=== PATIENT | female | born 1955 | race Caucasian/White ===

== ENCOUNTER 2022-02-14 09:35 | Emergency (ER) | payer MEDICARE, OTHER, SELFPAY ==
[2022-02-14 09:45] VITALS: BP 157/83; PULSE 80; O2SAT 98
[2022-02-14 10:39] VITALS: BP 151/74; PULSE 76; RESP 16; TEMP 36.9; O2SAT 98; BMI 24.0
[2022-02-14 11:17] LABS: Basophils Absolute Auto 0.1 X10*3/uL (0.0-0.2); Basophils Percent Auto 0.4 % (0-2); Eosinophils Absolute Auto 0.1 X10*3/uL (0.0-0.4); Eosinophils Percent Auto 0.9 % (0-4); Hemoglobin 13.7 g/dl (12.0-16.0); Imm Gran Abs Auto 0.07 X10*3/uL (0.00-0.03); Imm Gran Pct Auto 0.5 % (0.0-0.4); Lymphocytes Absolute Auto 1.6 X10*3/uL (1.2-4.9); Lymphocytes Percent Auto 11.6 % (20-40); MANUAL DIFF FLAG SCAN; Mean Corpuscular HGB Conc 35.1 g/dl (31.0-35.0); Mean Corpuscular Hemoglobin 34.9 pg (27.0-33.0); Mean Corpuscular Volume 99.2 fL (80.0-98.0); Mean Platelet Volume 9.8 fL (9.4-12.3); Monocytes Absolute Auto 1.6 X10*3/uL (0.1-1.2); Monocytes Percent Auto 11.7 % (2-11); Neutrophils Absolute Auto 10.5 x10*3/uL (2.0-8.3); Neutrophils Percent Auto 74.9 % (45-73); Platelet Count 173 X10*3/uL (160-400); Red Blood Count 3.93 X10*6/uL (4.20-5.50); Red Cell Distribution Width 16.9 % (11.0-16.0); SCAN SMEAR FLAG 1
[2022-02-14 11:18] LABS: Appearance Urine HAZY; Color Urine ORANGE; Glucose Urine UA 100 MG/DL (NEG); Leukocyte Esterase Urine TRACE (NEG); PH 6.5 (5.0-8.0); UACC Culture Trigger YES; Urine Blood 1+ (NEG); Urine Ketones 5 MG/DL (NEG); Urine Protein 1+ MG/DL (NEG-TRACE)
[2022-02-14 11:25] LABS: Bacteria Urine 1+ /LPF
[2022-02-14 11:26] LABS: Renal Epithelial Cells Urine 2+ /LPF; Squamous Epithelial Cell Urine 2+ /LPF
[2022-02-14 11:37] LABS: SLIDE REVIEW VERIFIED
[2022-02-14 11:52] LABS: Alanine Aminotransferase 64 U/L (0-31); Albumin Level 3.4 g/dL (3.5-5.0); Alkaline Phosphatase 184 U/L (39-117); Anion Gap 14 (12-20); Aspartate Amino Transferase 185 U/L (5-31); Bilirubin Direct 4.7 mg/dL (0.0-0.5); Bilirubin Total 8.5 mg/dL (0.0-1.0); Blood Urea Nitrogen 3 mg/dL (9-16); Calcium 8.8 mg/dL (8.4-10.2); Carbon Dioxide 25 mmol/L (22-29); Chloride 91 mmol/L (96-108); Creatinine Clr Calc Pharmacy 67.2; Estimated Glomerular Filt Rate > 60; Glucose Random 108 mg/dL (60-115); Potassium 3.2 mmol/L (3.3-5.1); Sodium 127 mmol/L (135-145); Total Protein 7.2 g/dL (6.5-8.0)
== END 2022-02-14 18:55 | disposition left against medical advice (07) ==
PROVIDERS: Emergency Provider Emergency Medicine
DX: R10.9 Unspecified abdominal pain (principal); R19.7 Diarrhea, unspecified
CPT/HCPCS: 36415; 80048; 80076; 81001; 85025; 87086; 99283

== ENCOUNTER 2022-02-23 08:08 | Inpatient (IN) | payer MEDICARE, OTHER, SELFPAY ==
--- NOTE | ~2022-02-23 | US_ITS ---
EXAMINATION: US ABDOMEN COMPLETE and Doppler exam CLINICAL INFORMATION: Cirrhosis, ascites and esophageal varices. COMPARISON: Previous CT of the abdomen and pelvis 02/23/2022 TECHNIQUE: Real-time imaging of the abdominal viscera. Doppler grayscale and color imaging of the liver vasculature FINDINGS: PANCREAS: Normal. ABDOMINAL AORTA: There is atherosclerotic disease. The proximal, mid, and distal segments are normal in caliber. INFERIOR VENA CAVA: Visualized portions are normal. LIVER: The liver echotexture is heterogeneous. The contour of the liver is irregular suggestive of cirrhosis. No focal liver lesion is seen. No biliary duct dilatation. GALLBLADDER: Gallbladder is upper normal in size. There are gallstones. The gallbladder wall is normal. COMMON BILE DUCT: Normal in caliber measuring 0.5 cm in diameter. RIGHT KIDNEY: Normal. No hydronephrosis. No renal calculi or focal parenchymal lesions. The kidney measures 10 cm in maximum dimension. LEFT KIDNEY: Normal. No hydronephrosis. No renal calculi or focal parenchymal lesions. The kidney measures 10.4 cm in maximum dimension. SPLEEN: Normal. The spleen measures 9.6 cm in maximum dimension. FREE FLUID: There is a small amount of ascites. Doppler exam: The extrahepatic, main, right and left portal veins are patent with appropriate hepatopedal flow. The splenic vein is patent with appropriate hepatopedal flow. The hepatic veins are patent. There is a slightly dampened waveform in the hepatic veins and IVC. The hepatic arteries are patent. Peak systolic velocity in the main hepatic artery is normal measuring 153 cm/s. US/US abdomen complete IMPRESSION: Cirrhotic-appearing liver. Gallstones. Slightly dampened waveform in the hepatic veins and intrahepatic IVC. Liver Doppler exam is otherwise normal. Small amount of ascites.
--- NOTE | ~2022-02-23 | CT_ITS ---
EXAMINATION: CT ABDOMEN AND PELVIS WITHOUT CONTRAST CLINICAL INFORMATION: Abdominal distention. Upper GI bleed. COMPARISON: None TECHNIQUE: Multidetector volumetric imaging was performed from the superior aspect of the liver through the pubic symphysis. Sagittal and coronal reformatted images were obtained on the technologist's workstation. This CT examination was performed using dose optimization techniques as appropriate, variously including the following: *Automated exposure control *Adjustment of mA and/or kV according to patient size (this includes techniques or standardized protocols for targeted exams where dose is matched to indication/reason for exam; i.e. extremities or head) *Use of iterative reconstruction technique DLP: 495 mGy-cm FINDINGS: PERITONEAL CAVITY: Moderate to large volume simple appearing peritoneal fluid is noted within the abdomen and pelvis. LUNG BASES: The visualized lung bases are unremarkable. LIVER, GALLBLADDER, AND BILIARY TREE: Diffusely heterogeneous liver, consistent with diffuse liver disease. Evaluation is technically limited due to lack of intravenous contrast. Superimposed focal liver lesion is not excluded on these images. The liver measures 17 cm at its maximum craniocaudal dimension. The gallbladder is mildly distended, shows few sub-5 mm radiopaque calculi. PANCREAS: Unremarkable. SPLEEN: Unremarkable. ADRENAL GLANDS: Unremarkable. KIDNEYS AND URETERS: The kidneys are normal in size, shape, and attenuation. No hydronephrosis, hydroureter, or calculi seen. No perinephric stranding. BLADDER: There is a Oneill's catheter present. The bladder is collapsed. GASTROINTESTINAL TRACT: Extensive colonic diverticulosis related changes are noted within the large bowel without any CT features of superimposed acute diverticulitis. The small bowel loops are decompressed. The stomach is decompressed. There is a small sliding hiatal hernia present. Nonvisualized appendix. No inflammatory changes around the cecum. ABDOMINAL WALL: No significant hernia is appreciated. LYMPH NODES: Normal. VASCULAR: Diffuse atherosclerotic disease of the aorta and is branches without aneurysm formation. PELVIC VISCERA: There is no pelvic mass present. There is no free air present. Moderate to large volume free fluid is present. OSSEOUS STRUCTURES: Unremarkable. CT/CT abdomen pelvis wo con IMPRESSION: 1. Moderate to large volume simple appearing peritoneal fluid is noted within the abdomen and pelvis, indeterminate etiology. 2. The liver appear heterogeneous consistent with diffuse liver disease. Evaluation is technically limited on this nonenhanced study. The liver measures 17 cm at its maximum craniocaudal dimension. 3. Cholelithiasis. 4. Oneill's catheter within the bladder. 5. Extensive atherosclerotic disease of the aortoiliac arteries without aneurysm formation. 6. Colonic diverticulosis without any CT features of acute diverticulitis. Nonvisualized appendix. Fleischner guidelines were followed.
--- NOTE | ~2022-02-23 | US_ITS ---
EXAMINATION: ULTRASOUND-GUIDED PARACENTESIS CLINICAL INFORMATION: Ascites. Abdominal pain. COMPARISON: CT from earlier the same day of the abdomen and pelvis. TECHNIQUE: The right lower quadrant was prepped and draped in usual sterile fashion. The skin and soft tissues were anesthetized with 1% lidocaine plain. Using ultrasound guidance and a 5 Setswana Rapid centesis catheter, access to the ascitic fluid was obtained. 2.7 L of clear yellow fluid was removed. Diagnostic specimen was sent. FINDINGS: There is a [id number] amount of ascites. US/US paracentesis abd w/image IMPRESSION: Ultrasound-guided paracentesis.
--- NOTE | ~2022-02-23 | US_ITS ---
EXAMINATION: US ABDOMEN COMPLETE and Doppler exam CLINICAL INFORMATION: Cirrhosis, ascites and esophageal varices. COMPARISON: Previous CT of the abdomen and pelvis 02/23/2022 TECHNIQUE: Real-time imaging of the abdominal viscera. Doppler grayscale and color imaging of the liver vasculature FINDINGS: PANCREAS: Normal. ABDOMINAL AORTA: There is atherosclerotic disease. The proximal, mid, and distal segments are normal in caliber. INFERIOR VENA CAVA: Visualized portions are normal. LIVER: The liver echotexture is heterogeneous. The contour of the liver is irregular suggestive of cirrhosis. No focal liver lesion is seen. No biliary duct dilatation. GALLBLADDER: Gallbladder is upper normal in size. There are gallstones. The gallbladder wall is normal. COMMON BILE DUCT: Normal in caliber measuring 0.5 cm in diameter. RIGHT KIDNEY: Normal. No hydronephrosis. No renal calculi or focal parenchymal lesions. The kidney measures 10 cm in maximum dimension. LEFT KIDNEY: Normal. No hydronephrosis. No renal calculi or focal parenchymal lesions. The kidney measures 10.4 cm in maximum dimension. SPLEEN: Normal. The spleen measures 9.6 cm in maximum dimension. FREE FLUID: There is a small amount of ascites. Doppler exam: The extrahepatic, main, right and left portal veins are patent with appropriate hepatopedal flow. The splenic vein is patent with appropriate hepatopedal flow. The hepatic veins are patent. There is a slightly dampened waveform in the hepatic veins and IVC. The hepatic arteries are patent. Peak systolic velocity in the main hepatic artery is normal measuring 153 cm/s. US/US duplex arterial venous comp IMPRESSION: Cirrhotic-appearing liver. Gallstones. Slightly dampened waveform in the hepatic veins and intrahepatic IVC. Liver Doppler exam is otherwise normal. Small amount of ascites.
--- NOTE | 2022-02-23 08:16 | ECG_ITS ---
Test Reason : NAUSEA Blood Pressure : / mmHG Vent. Rate : 097 BPM Atrial Rate : 097 BPM P-R Int : 128 ms QRS Dur : 118 ms QT Int : 406 ms P-R-T Axes : 064 058 009 degrees QTc Int : 515 ms Normal sinus rhythm Incomplete right bundle branch block ST & T wave abnormality, consider anterior ischemia Abnormal ECG No previous ECGs available Referred By: Carie Jurado Electronically Signed By:HARVEY VEGA
[2022-02-23 08:19] VITALS: BP 121/74; PULSE 108; O2SAT 96; BMI 25.0
--- NOTE | 2022-02-23 08:28 | ED_ITS ---
HPI - GI Bleed General Chief complaint: Nausea/Vomiting/Diarrhea Stated complaint: NAUSEA,VOMITING BLOOD,DIARRHEA Time Seen by Provider: 02/23/22 08:11 Source: patient and EMS Mode of arrival: EMS Limitations: no limitations History of Present Illness HPI Narrative: Patient comes to the emergency room complaining of diffuse abdominal pain for 1 week and vomiting blood starting today. Patient states that she has been having the pain for about a week, this morning she woke up vomiting blood. Patient has been having diarrhea for a few days, black stool. This morning, patient called EMS, blood pressure in the low 80s, given have L of normal saline, blood pressure improved to the 120s. Patient states that she is not known to have any medical problems. Patient states that she stopped drinking alcohol appr oximately 3 weeks ago. Patient has never had GI bleeds, denies any previous knowledge of being diagnosed with cirrhosi patient denies being on any blood thinners/aspirin Related Data Home Medications Medication Instructions Recorded Confirmed No Known Home Meds 02/23/22 02/23/22 Allergies Allergy/AdvReac Type Severity Reaction Status Date / Time No Known Allergies Allergy Verified 02/14/22 10:38 Review of Systems Review of Systems: Constitutional : No Weight loss, No Fever, No Chills, No Night Sweats, No Fatigue, No Malaise ENT/Mouth : No Hearing loss, No Ear Pain, No Nasal Congestion, No Sinus Pain, No Hoarseness, No sore throat, No Rhinorrhea, No Swallowing Difficulty Eyes: No Eye Pain, No Swelling, No Redness, No Foreign Body, No Discharge, No Vision Changes Cardiovascular : No Chest Pain, No SOB, No Dyspnea on Exertion, No Orthopnea, No Edema, No Palpitations Respiratory : No Cough, No Sputum, No Wheezing, No Smoke Exposure, No Dyspnea Gastrointestinal : Complaining of nausea, vomiting blood, black stool diarrhea, diffuse abdominal pain Genitourinary : no irregular bleeding, No Dysuria, No Urinary Frequency, No Hematuria, No Urinary Incontinence, No Urgency, No Flank Pain, No Urinary Flow Changes, No Hesitancy Musculoskeletal : No joint pain, No Myalgias, No Joint Swelling Skin : No Skin Lesions, No rash Neuro : No Weakness, No Numbness, No Paresthesias, No Loss of Consciousness, No Dizziness, No Headache Psych : No Anxiety/Panic, No Depression, No SI/HI/AH/VH, No Social Issues, Heme/Lymph: No Bruising, No Bleeding,No Lymphadenopathy Endocrine : No Polyuria, No Polydipsia, No Temperature Intolerance [facility] Past Medical History Medical History No known health problems Social History Social History Alcohol intake: former Patient Tobacco Use Status: Former Tobacco user Smoked in Last 30 Days: No Use of substances other than those prescribed or required for medical reasons: No Advance Directives: No Advance Directives Information Provided: No Physical Exam Vital Signs: Vital Signs: Last Vital Signs Temp 97.9 F 02/23/22 13:09 Pulse 82 02/23/22 13:09 Resp 16 02/23/22 13:09 Pulse Ox 97 02/23/22 13:09 BMI result Body Mass Index 25.0 Const: Other: Appearance: Alert. Oriented X3. No acute distress. Eyes: Pupils equal, round and reactive to light. Icteric sclera ENT: Pharynx normal. Neck: Normal inspection. Neck supple. No lymph nodes noted. No crepitus CVS: Normal heart rate and rhythm. Pulses normal. Normal S1 and S2 Respiratory: No respiratory distress. Breath sounds normal. No Wheezing. No rales Abdomen: Soft , mildly distended, not significant tenderness, only mild discomfort. Digital rectal exam shows black stool. Patient has dry blood in the oropharynx Skin: Skin warm and dry. Normal skin color. Normal skin turgor. Extremities: No lower extremity edema. No Lacerations. No Rash Neuro: Oriented X 3. No motor deficit. No sensory deficit. Moving all extremities. No slurred speech. CN 2 through 12 grossly intact Psych: calm, cooperative, normal affect Course Course Course Narrative: Patient has no past medical history, recently stopped drinking alcohol 3 weeks ago. Patient likely has cirrhosis and esophageal variceal bleed. At this time, she is not actively vomiting or bleeding. Patient was given IV fluids, empirically treated with ceftriaxone, octreotide and pantoprazole. Of the labs are pending We tried obtaining urine. Patient states that she could not urinate, bladder scan shows 960 mL of urine. Oneill catheter has been inserted. I discussed the patient with Dr. Carranza, patient being admitted MDM - GI Bleed Lab Data Result diagrams: 02/23/22 08:46 02/23/22 11:00 Labs: Lab Results 02/23/22 02/23/22 02/23/22 Range/Units 08:46 08:46 08:46 WBC 20.5 H (4.8-10.8) X10*3/uL RBC 3.15 L (4.20-5.50) X10*6/uL Hgb 11.3 L (12.0-16.0) g/dl Hct 32.5 L (37.0-47.0) % MCV 103.2 H (80.0-98.0) fL MCH 35.9 H (27.0-33.0) pg MCHC 34.8 (31.0-35.0) g/dl RDW 17.3 H (11.0-16.0) % Plt Count 230 D (160-400) X10*3/uL MPV 10.2 (9.4-12.3) fL Immature Gran % (Auto) 0.9 H (0.0-0.4) % Neut % (Auto) 75.8 H (45-73) % Lymph % (Auto) 14.0 L (20-40) % Bertie % (Auto) 8.3 (2-11) % Eos % (Auto) 0.7 (0-4) % Baso % (Auto) 0.3 (0-2) % Lymph # (Auto) 2.9 (1.2-4.9) X10*3/uL Bertie # (Auto) 1.7 H (0.1-1.2) X10*3/uL Eos # (Auto) 0.2 (0.0-0.4) X10*3/uL Baso # (Auto) 0.1 (0.0-0.2) X10*3/uL Abs Immat Gran (auto) 0.19 H (0.00-0.03) X10*3/uL Absolute Neuts (auto) 15.5 H (2.0-8.3) x10*3/uL Absolute Nucleated RBC 0.020 H (0.0-0.012) X10*3/uL Nucleated RBC % (auto) 0.1 (0.0-0.2) /100WBC Smear Tech's Comments VERIFIED PT 21.1 H (9.9-13.0) SEC INR 1.8 H (0.9-1.1) Sodium (135-145) mmol/L Potassium (3.3-5.1) mmol/L Chloride (96-108) mmol/L Carbon Dioxide (22-29) mmol/L Anion Gap (12-20) BUN (9-16) mg/dL Creatinine (0.5-1.4) mg/dL Estim Creat Clear Calc Estimated GFR Random Glucose (60-115) mg/dL Lactic Acid (0.5-2.0) mmol/L Calcium (8.4-10.2) mg/dL Magnesium (1.6-2.6) mg/dL Total Bilirubin (0.0-1.0) mg/dL Direct Bilirubin (0.0-0.5) mg/dL AST (5-31) U/L ALT (0-31) U/L Alkaline Phosphatase (39-117) U/L Total Protein (6.5-8.0) g/dL Albumin (3.5-5.0) g/dL Lipase (8-78) U/L Urine Color Urine Appearance Urine pH (5.0-8.0) Ur Specific [place] (1.005-1.025) Urine Protein (NEG-TRACE) MG/DL Urine Glucose (UA) (NEG) MG/DL Urine Ketones (NEG) MG/DL Urine Blood (NEG) Urine Nitrite (NEG) Ur Leukocyte Esterase (NEG) Urine RBC (0) /HPF Urine WBC (0-4) /HPF Ur Squamous Epith Cells /LPF Urine Bacteria /LPF Hyaline Casts /LPF Granular Casts /LPF Urine Mucus /LPF Stool Occult Blood (NEGATIVE) Urine Opiates Screen (Not Detect) Urine Fentanyl Screen (Not Detect) Ur Barbiturates Screen (Not Detect) Ur Phencyclidine Scrn (Not Detect) Ur Amphetamines Screen (Not Detect) U Benzodiazepines Scrn (Not Detect) Urine Cocaine Screen (Not Detect) U Marijuana (THC) Screen (Not Detect) Ethyl Alcohol mg/dL COVID-19 (LISA) Negative (Negative) COVID-19 Clin Com See Note Blood Type Antibody Screen 02/23/22 02/23/22 02/23/22 Range/Units 09:13 09:13 11:00 WBC (4.8-10.8) X10*3/uL RBC (4.20-5.50) X10*6/uL Hgb (12.0-16.0) g/dl Hct (37.0-47.0) % MCV (80.0-98.0) fL MCH (27.0-33.0) pg MCHC (31.0-35.0) g/dl RDW (11.0-16.0) % Plt Count (160-400) X10*3/uL MPV (9.4-12.3) fL Immature Gran % (Auto) (0.0-0.4) % Neut % (Auto) (45-73) % Lymph % (Auto) (20-40) % Bertie % (Auto) (2-11) % Eos % (Auto) (0-4) % Baso % (Auto) (0-2) % Lymph # (Auto) (1.2-4.9) X10*3/uL Bertie # (Auto) (0.1-1.2) X10*3/uL Eos # (Auto) (0.0-0.4) X10*3/uL Baso # (Auto) (0.0-0.2) X10*3/uL Abs Immat Gran (auto) (0.00-0.03) X10*3/uL Absolute Neuts (auto) (2.0-8.3) x10*3/uL Absolute Nucleated RBC (0.0-0.012) X10*3/uL Nucleated RBC % (auto) (0.0-0.2) /100WBC Smear Tech's Comments PT (9.9-13.0) SEC INR (0.9-1.1) Sodium 130 L (135-145) mmol/L Potassium 3.3 (3.3-5.1) mmol/L Chloride 100 (96-108) mmol/L Carbon Dioxide 26 (22-29) mmol/L Anion Gap 7 L (12-20) BUN 10 D (9-16) mg/dL Creatinine 0.59 (0.5-1.4) mg/dL Estim Creat Clear Calc 84.5 Estimated GFR > 60 Random Glucose 89 (60-115) mg/dL Lactic Acid (0.5-2.0) mmol/L Calcium 7.3 L D (8.4-10.2) mg/dL Magnesium 1.8 (1.6-2.6) mg/dL Total Bilirubin 5.2 H (0.0-1.0) mg/dL Direct Bilirubin 3.5 H (0.0-0.5) mg/dL AST 123 H (5-31) U/L ALT 50 H (0-31) U/L Alkaline Phosphatase 100 D (39-117) U/L Total Protein 5.1 L D (6.5-8.0) g/dL Albumin 2.4 L D (3.5-5.0) g/dL Lipase 17 (8-78) U/L Urine Color Urine Appearance Urine pH (5.0-8.0) Ur Specific [place] (1.005-1.025) Urine Protein (NEG-TRACE) MG/DL Urine Glucose (UA) (NEG) MG/DL Urine Ketones (NEG) MG/DL Urine Blood (NEG) Urine Nitrite (NEG) Ur Leukocyte Esterase (NEG) Urine RBC (0) /HPF Urine WBC (0-4) /HPF Ur Squamous Epith Cells /LPF Urine Bacteria /LPF Hyaline Casts /LPF Granular Casts /LPF Urine Mucus /LPF Stool Occult Blood POSITIVE (NEGATIVE) Urine Opiates Screen (Not Detect) Urine Fentanyl Screen (Not Detect) Ur Barbiturates Screen (Not Detect) Ur Phencyclidine Scrn (Not Detect) Ur Amphetamines Screen (Not Detect) U Benzodiazepines Scrn (Not Detect) Urine Cocaine Screen (Not Detect) U Marijuana (THC) Screen (Not Detect) Ethyl Alcohol mg/dL COVID-19 (LISA) (Negative) COVID-19 Clin Com Blood Type A Positive Antibody Screen NEGATIVE 02/23/22 02/23/22 02/23/22 Range/Units 11:00 11:00 11:49 WBC (4.8-10.8) X10*3/uL RBC (4.20-5.50) X10*6/uL Hgb (12.0-16.0) g/dl Hct (37.0-47.0) % MCV (80.0-98.0) fL MCH (27.0-33.0) pg MCHC (31.0-35.0) g/dl RDW (11.0-16.0) % Plt Count (160-400) X10*3/uL MPV (9.4-12.3) fL Immature Gran % (Auto) (0.0-0.4) % Neut % (Auto) (45-73) % Lymph % (Auto) (20-40) % Bertie % (Auto) (2-11) % Eos % (Auto) (0-4) % Baso % (Auto) (0-2) % Lymph # (Auto) (1.2-4.9) X10*3/uL Bertie # (Auto) (0.1-1.2) X10*3/uL Eos # (Auto) (0.0-0.4) X10*3/uL Baso # (Auto) (0.0-0.2) X10*3/uL Abs Immat Gran (auto) (0.00-0.03) X10*3/uL Absolute Neuts (auto) (2.0-8.3) x10*3/uL Absolute Nucleated RBC (0.0-0.012) X10*3/uL Nucleated RBC % (auto) (0.0-0.2) /100WBC Smear Tech's Comments PT (9.9-13.0) SEC INR (0.9-1.1) Sodium (135-145) mmol/L Potassium (3.3-5.1) mmol/L Chloride (96-108) mmol/L Carbon Dioxide (22-29) mmol/L Anion Gap (12-20) BUN (9-16) mg/dL Creatinine (0.5-1.4) mg/dL Estim Creat Clear Calc Estimated GFR Random Glucose (60-115) mg/dL Lactic Acid 2.0 (0.5-2.0) mmol/L Calcium (8.4-10.2) mg/dL Magnesium (1.6-2.6) mg/dL Total Bilirubin (0.0-1.0) mg/dL Direct Bilirubin (0.0-0.5) mg/dL AST (5-31) U/L ALT (0-31) U/L Alkaline Phosphatase (39-117) U/L Total Protein (6.5-8.0) g/dL Albumin (3.5-5.0) g/dL Lipase (8-78) U/L Urine Color GAVIN Urine Appearance HAZY Urine pH 6.5 (5.0-8.0) Ur Specific [place] 1.025 (1.005-1.025) Urine Protein 1+ H (NEG-TRACE) MG/DL Urine Glucose (UA) 100 H (NEG) MG/DL Urine Ketones SEE NOTE (NEG) MG/DL Urine Blood TRACE (NEG) Urine Nitrite SEE NOTE (NEG) Ur Leukocyte Esterase NEG (NEG) Urine RBC 0-2 (0) /HPF Urine WBC 1-4 (0-4) /HPF Ur Squamous Epith Cells 3+ /LPF Urine Bacteria NONE /LPF Hyaline Casts 5-9 /LPF Granular Casts 1-4 /LPF Urine Mucus 2+ /LPF Stool Occult Blood (NEGATIVE) Urine Opiates Screen (Not Detect) Urine Fentanyl Screen (Not Detect) Ur Barbiturates Screen (Not Detect) Ur Phencyclidine Scrn (Not Detect) Ur Amphetamines Screen (Not Detect) U Benzodiazepines Scrn (Not Detect) Urine Cocaine Screen (Not Detect) U Marijuana (THC) Screen (Not Detect) Ethyl Alcohol < 10 mg/dL COVID-19 (LISA) (Negative) COVID-19 Clin Com Blood Type Antibody Screen 02/23/22 Range/Units 11:49 WBC (4.8-10.8) X10*3/uL RBC (4.20-5.50) X10*6/uL Hgb (12.0-16.0) g/dl Hct (37.0-47.0) % MCV (80.0-98.0) fL MCH (27.0-33.0) pg MCHC (31.0-35.0) g/dl RDW (11.0-16.0) % Plt Count (160-400) X10*3/uL MPV (9.4-12.3) fL Immature Gran % (Auto) (0.0-0.4) % Neut % (Auto) (45-73) % Lymph % (Auto) (20-40) % Bertie % (Auto) (2-11) % Eos % (Auto) (0-4) % Baso % (Auto) (0-2) % Lymph # (Auto) (1.2-4.9) X10*3/uL Bertie # (Auto) (0.1-1.2) X10*3/uL Eos # (Auto) (0.0-0.4) X10*3/uL Baso # (Auto) (0.0-0.2) X10*3/uL Abs Immat Gran (auto) (0.00-0.03) X10*3/uL Absolute Neuts (auto) (2.0-8.3) x10*3/uL Absolute Nucleated RBC (0.0-0.012) X10*3/uL Nucleated RBC % (auto) (0.0-0.2) /100WBC Smear Tech's Comments PT (9.9-13.0) SEC INR (0.9-1.1) Sodium (135-145) mmol/L Potassium (3.3-5.1) mmol/L Chloride (96-108) mmol/L Carbon Dioxide (22-29) mmol/L Anion Gap (12-20) BUN (9-16) mg/dL Creatinine (0.5-1.4) mg/dL Estim Creat Clear Calc Estimated GFR Random Glucose (60-115) mg/dL Lactic Acid (0.5-2.0) mmol/L Calcium (8.4-10.2) mg/dL Magnesium (1.6-2.6) mg/dL Total Bilirubin (0.0-1.0) mg/dL Direct Bilirubin (0.0-0.5) mg/dL AST (5-31) U/L ALT (0-31) U/L Alkaline Phosphatase (39-117) U/L Total Protein (6.5-8.0) g/dL Albumin (3.5-5.0) g/dL Lipase (8-78) U/L Urine Color Urine Appearance Urine pH (5.0-8.0) Ur Specific [place] (1.005-1.025) Urine Protein (NEG-TRACE) MG/DL Urine Glucose (UA) (NEG) MG/DL Urine Ketones (NEG) MG/DL Urine Blood (NEG) Urine Nitrite (NEG) Ur Leukocyte Esterase (NEG) Urine RBC (0) /HPF Urine WBC (0-4) /HPF Ur Squamous Epith Cells /LPF Urine Bacteria /LPF Hyaline Casts /LPF Granular Casts /LPF Urine Mucus /LPF Stool Occult Blood (NEGATIVE) Urine Opiates Screen Not Detected (Not Detect) Urine Fentanyl Screen Not Detected (Not Detect) Ur Barbiturates Screen Not Detected (Not Detect) Ur Phencyclidine Scrn Not Detected (Not Detect) Ur Amphetamines Screen Not Detected (Not Detect) U Benzodiazepines Scrn Not Detected (Not Detect) Urine Cocaine Screen Not Detected (Not Detect) U Marijuana (THC) Screen Not Detected (Not Detect) Ethyl Alcohol mg/dL COVID-19 (LISA) (Negative) COVID-19 Clin Com Blood Type Antibody Screen Imaging Data CT scan - abdomen: Radiologist's impression: PERITONEAL CAVITY: Moderate to large volume simple appearing peritoneal fluid is noted within the abdomen and pelvis. LUNG BASES: The visualized lung bases are unremarkable.? LIVER, GALLBLADDER, AND BILIARY TREE: Diffusely heterogeneous liver, consistent with diffuse liver disease. Evaluation is technically limited due to lack of intravenous contrast. Superimposed focal liver lesion is not excluded on these images. The liver measures 17 cm at its maximum craniocaudal dimension. ?The gallbladder is mildly distended, shows few sub-5 mm radiopaque calculi. PANCREAS: Unremarkable.? SPLEEN: Unremarkable.? ADRENAL GLANDS: Unremarkable.? KIDNEYS AND URETERS: The kidneys are normal in size, shape, and attenuation. No hydronephrosis, hydroureter, or calculi seen. No perinephric stranding. ? BLADDER: There is a Oneill's catheter present. The bladder is collapsed. ? GASTROINTESTINAL TRACT: Extensive colonic diverticulosis related changes are noted within the large bowel without any CT features of superimposed acute diverticulitis. The small bowel loops are decompressed. The stomach is decompressed. There is a small sliding hiatal hernia present. Nonvisualized appendix. No inflammatory changes around the cecum.? ABDOMINAL WALL: No significant hernia is appreciated.? LYMPH NODES: Normal. VASCULAR: Diffuse atherosclerotic disease of the aorta and is branches without aneurysm formation. PELVIC VISCERA: There is no pelvic mass present. There is no free air present. Moderate to large volume free fluid is present.? OSSEOUS STRUCTURES: Unremarkable.? CT/CT abdomen pelvis wo con IMPRESSION: ? 1. Moderate to large volume simple appearing peritoneal fluid is noted within the abdomen and pelvis, indeterminate etiology. 2. The liver appear heterogeneous consistent with diffuse liver disease. Evaluation is technically limited on this nonenhanced study. The liver measures 17 cm at its maximum craniocaudal dimension. 3. Cholelithiasis. 4. Oneill's catheter within the bladder. 5. Extensive atherosclerotic disease of the aortoiliac arteries without aneurysm formation. 6. Colonic diverticulosis without any CT features of acute diverticulitis. Nonvisualized appendix. ? Fleischner guidelines were followed. Discharge Plan Discharge Clinical Impression: GI bleed, Acute urinary retention, Acute hyponatremia Patient Disposition: Admitted As Inpatient
[2022-02-23 08:59] LABS: Basophils Absolute Auto 0.1 X10*3/uL (0.0-0.2); Basophils Percent Auto 0.3 % (0-2); Eosinophils Absolute Auto 0.2 X10*3/uL (0.0-0.4); Eosinophils Percent Auto 0.7 % (0-4); Hematocrit 32.5 % (37.0-47.0); Hemoglobin 11.3 g/dl (12.0-16.0); INTERNATIONAL NORM RATIO 1.8 (0.9-1.1); Imm Gran Abs Auto 0.19 X10*3/uL (0.00-0.03); Imm Gran Pct Auto 0.9 % (0.0-0.4); Lymphocytes Absolute Auto 2.9 X10*3/uL (1.2-4.9); MANUAL DIFF FLAG SCAN; Mean Corpuscular HGB Conc 34.8 g/dl (31.0-35.0); Mean Corpuscular Hemoglobin 35.9 pg (27.0-33.0); Mean Corpuscular Volume 103.2 fL (80.0-98.0); Mean Platelet Volume 10.2 fL (9.4-12.3); Monocytes Absolute Auto 1.7 X10*3/uL (0.1-1.2); Monocytes Percent Auto 8.3 % (2-11); NRBC Pct Auto 0.1 /100WBC (0.0-0.2); Neutrophils Absolute Auto 15.5 x10*3/uL (2.0-8.3); Neutrophils Percent Auto 75.8 % (45-73); Platelet Count 230 X10*3/uL (160-400); Prothrombin Time 21.1 SEC (9.9-13.0); Red Blood Count 3.15 X10*6/uL (4.20-5.50); Red Cell Distribution Width 17.3 % (11.0-16.0); SCAN SMEAR FLAG 1; White Blood Count 20.5 X10*3/uL (4.8-10.8)
[2022-02-23 09:11] LABS: COVID-19 Test Negative (Negative)
[2022-02-23 09:21] LABS: OBS Int Ctl Valid YES; OBS1 POSITIVE (NEGATIVE)
--- NOTE | 2022-02-23 09:22 | PHA.MEDREC ---
Pharmacy Consult ? Medication Reconciliation Pharmacy has completed the medication reconciliation. Patient takes no prescription or OTC meds Thanks Mamadou
[2022-02-23 09:43] LABS: SLIDE REVIEW VERIFIED
[2022-02-23] MEDS: Octreotide Acetate 100 MCG/ML AMPUL 50 MCG IVPUSH (10:19)
[2022-02-23] MEDS: 0.9 % Sodium Chloride 1,000 ML 999 ML IVCONT (10:19)
[2022-02-23] MEDS: cefTRIAXone sodium 1 GM in 0.9 % Sodium Chloride 50 ML IV (10:19)
[2022-02-23] MEDS: Prochlorperazine Edisylate 10 MG/2 ML VIAL 5 MG IVPUSH (10:20)
[2022-02-23] MEDS: Pantoprazole Sodium 40 MG/10 ML VIAL IVPUSH ×2 (10:20→17:36)
[2022-02-23 11:18] LABS: Ethanol < 10 mg/dL
[2022-02-23 11:24] LABS: Alanine Aminotransferase 50 U/L (0-31); Albumin Level 2.4 g/dL (3.5-5.0); Alkaline Phosphatase 100 U/L (39-117); Anion Gap 7 (12-20); Aspartate Amino Transferase 123 U/L (5-31); Bilirubin Direct 3.5 mg/dL (0.0-0.5); Bilirubin Total 5.2 mg/dL (0.0-1.0); Blood Urea Nitrogen 10 mg/dL (9-16); Calcium 7.3 mg/dL (8.4-10.2); Carbon Dioxide 26 mmol/L (22-29); Chloride 100 mmol/L (96-108); Creatinine Clr Calc Pharmacy 84.5; Estimated Glomerular Filt Rate > 60; Glucose Random 89 mg/dL (60-115); Lipase 17 U/L (8-78); Magnesium 1.8 mg/dL (1.6-2.6); Potassium 3.3 mmol/L (3.3-5.1); Sodium 130 mmol/L (135-145); Total Protein 5.1 g/dL (6.5-8.0)
[2022-02-23 12:02] LABS: Appearance Urine HAZY; Glucose Urine UA 100 MG/DL (NEG); Leukocyte Esterase Urine NEG (NEG); PH 6.5 (5.0-8.0); Specific Gravity - Urine 1.025 (1.005-1.025); Urine Blood TRACE (NEG); Urine Protein 1+ MG/DL (NEG-TRACE)
[2022-02-23 12:11] LABS: Color Urine AMBER; UACC Culture Trigger NO
[2022-02-23 12:14] LABS: Mucus Urine 2+ /LPF; RBC Urine 0-2 /HPF (0); Squamous Epithelial Cell Urine 3+ /LPF
[2022-02-23 12:20] LABS: Amphetamine Screen Urine Not Detected (Not Detect); Barbiturates, Urine Not Detected (Not Detect); Benzodiazepines Screen Urine Not Detected (Not Detect); Cannabinoid Screen Urine Not Detected (Not Detect); Cocaine Screen Urine Not Detected (Not Detect); Fentanyl, urine Not Detected (Not Detect); Opiate Screen Urine Not Detected (Not Detect); Phencyclidine Screen Urine Not Detected (Not Detect)
[2022-02-23 13:09] VITALS: PULSE 82; RESP 16; TEMP 36.6; O2SAT 97
--- NOTE | 2022-02-23 13:10 | PC.NURSE ---
pt now resting, reports feeling no gi s/s. has not felt nauseous or any hemoptysis noted throughout stay. boland patent and draining dark clear urine. awaiting inpt bed assignment. wctm
--- NOTE | 2022-02-23 15:07 | PM.IMHP ---
History of Present Illness Date of Service: 02/23/22 <Vernell Ramos NP - Last Filed: 02/23/22 16:52> Chief Complaint: Nausea and vomiting <Vernell Ramos NP - Last Filed: 02/23/22 16:52> 66-year-old woman who presented to the ER after multiple episodes of vomiting bright red blood. She reports that it started this morning. She reported that she had been a heavy drinker for many years and quit with her approximately 3 weeks ago, she did not really quantify how much she drinks but she reported beer and hard liquor, she reported that she was drinking even have your last year. She denied chest pain, shortness of breath, diarrhea. She reported that her abdomen felt full as if she had eaten a big meal started feeling nauseous and vomited several times. She did report some black stool. She had had diffuse abdominal pain for over a week. Her H&H is stable at 10.4 and 29.6, bilirubin 5.2, AST 123, ALT 50. In the ER she was given octreotide, IV Protonix, Rocephin, Compazine and her 1L of IV fluid. She will be admitted for further management and treatment of acute upper GI bleed. <Vernell Ramos NP - Last Filed: 02/23/22 16:52> Review of Systems Review of Systems: Denies any recent fever chills or decrease in appetite respiratory denies any shortness of breath coverage production cardiovascular Denies chest pain gastrointestinal see HPI genitourinary denies any dysuria frequency or hematuria musculoskeletal denies any joint pain or swelling neuropsych denies any weakness or seizures all other systems reviewed are negative <Vernell Ramos NP - Last Filed: 02/23/22 16:52> [facility] Medical History: Medical History No known health problems <Vernell Ramos NP - Last Filed: 02/23/22 16:52> Pertinent family history: heart problems <Vernell Ramos NP - Last Filed: 02/23/22 16:52> Social History: Social History Alcohol intake: former Patient Tobacco Use Status: Former Tobacco user Smoked in Last 30 Days: No Use of substances other than those prescribed or required for medical reasons: No Advance Directives: No Advance Directives Information Provided: No <Vernell Ramos NP - Last Filed: 02/23/22 16:52> Meds Allergies/Adverse reactions: Allergies Allergy/AdvReac Type Severity Reaction Status Date / Time No Known Allergies Allergy Verified 02/14/22 10:38 <Vernell Ramos NP - Last Filed: 02/23/22 16:52> Active Medications: Current Medications Acetaminophen (Acetaminophen 325 Mg Tablet) 650 mg PO Q6H PRN PRN Reason: Pain, Mild (Pain Scale 1-3) Ondansetron HCl (Ondansetron Hcl 4 Mg/2 Ml Vial) 4 mg IVPUSH Q8H PRN PRN Reason: Nausea and Vomiting Pharmacy Consult (Consult Rx Perform Med Rec) 1 each MISCELLANE ONCE PRN PRN Reason: Consult order Sodium Chloride (0.9 % Sodium Chloride Flush 3 Ml Syringe) 3 ml IVFLUSH QSHIFT [facility] <Vernell Ramos NP - Last Filed: 02/23/22 16:52> Home medications: Home Medications Medication Instructions Recorded Confirmed Last Taken Type No Known Home Meds 02/23/22 02/23/22 Unknown History <Vernell Ramos NP - Last Filed: 02/23/22 16:52> Physical Exam Vital Signs and Narrative: Vital Signs: Last Vital Signs Temp 97.9 F 02/23/22 13:09 Pulse 82 02/23/22 13:09 Resp 16 02/23/22 13:09 Pulse Ox 97 02/23/22 13:09 BMI result Body Mass Index 25.0 <Vernell Ramos NP - Last Filed: 02/23/22 16:52> Appearing in no acute distress head is normocephalic atraumatic eyes pupils are PERRLA sclera is anicteric mouth throat mucous membranes are intact and moist neck is supple no lymphadenopathy, no JVD noted lung sounds are clear to auscultation heart regular rate rhythm, clear S1, S2 positive bowel sounds, abdomen is soft, nontender neuro patient is alert x3, no focal deficits <Vernell Ramos NP - Last Filed: 02/23/22 16:52> Results Labs CBC and Chem 7: : 02/23/22 15:36 02/23/22 15:36 <Vernell Ramos NP - Last Filed: 02/23/22 16:52> Labs: Laboratory Results - last 24 hr 0302/23/22 02/23/22 08:46 08:46 08:46 MCV 103.2 H MCH 35.9 H MCHC 34.8 RDW 17.3 H Plt Count 230 D MPV 10.2 Immature Gran % (Auto) 0.9 H Neut % (Auto) 75.8 H Lymph % (Auto) 14.0 L [place] % (Auto) 8.3 Eos % (Auto) 0.7 Baso % (Auto) 0.3 Lymph # (Auto) 2.9 [place] # (Auto) 1.7 H Eos # (Auto) 0.2 Baso # (Auto) 0.1 Abs Immat Gran (auto) 0.19 H Absolute Neuts (auto) 15.5 H Absolute Nucleated RBC 0.020 H Nucleated RBC % (auto) 0.1 Smear Tech's Comments VERIFIED PT 21.1 H INR 1.8 H Anion Gap Estim Creat Clear Calc Estimated GFR Random Glucose Lactic Acid Calcium Magnesium Total Bilirubin Direct Bilirubin AST ALT Alkaline Phosphatase Total Protein Albumin Lipase Urine Color Urine Appearance Urine pH Ur Specific [place] Urine Protein Urine Glucose (UA) Urine Ketones Urine Blood Urine Nitrite Ur Leukocyte Esterase Urine RBC Urine WBC Ur Squamous Epith Cells Urine Bacteria Hyaline Casts Granular Casts Urine Mucus Stool Occult Blood Urine Opiates Screen Urine Fentanyl Screen Ur Barbiturates Screen Ur Phencyclidine Scrn Ur Amphetamines Screen U Benzodiazepines Scrn Urine Cocaine Screen U Marijuana (THC) Screen Ethyl Alcohol COVID-19 (LISA) Negative COVID-19 Clin Com See Note Blood Type Antibody Screen 02/23/22 02/23/22 02/23/22 09:13 09:13 11:00 MCV MCH MCHC RDW Plt Count MPV Immature Gran % (Auto) Neut % (Auto) Lymph % (Auto) [place] % (Auto) Eos % (Auto) Baso % (Auto) Lymph # (Auto) [place] # (Auto) Eos # (Auto) Baso # (Auto) Abs Immat Gran (auto) Absolute Neuts (auto) Absolute Nucleated RBC Nucleated RBC % (auto) Smear Tech's Comments PT INR Anion Gap 7 L Estim Creat Clear Calc 84.5 Estimated GFR > 60 Random Glucose 89 Lactic Acid Calcium 7.3 L D Magnesium 1.8 Total Bilirubin 5.2 H Direct Bilirubin 3.5 H AST 123 H ALT 50 H Alkaline Phosphatase 100 D Total Protein 5.1 L D Albumin 2.4 L D Lipase 17 Urine Color Urine Appearance Urine pH Ur Specific [place] Urine Protein Urine Glucose (UA) Urine Ketones Urine Blood Urine Nitrite Ur Leukocyte Esterase Urine RBC Urine WBC Ur Squamous Epith Cells Urine Bacteria Hyaline Casts Granular Casts Urine Mucus Stool Occult Blood POSITIVE Urine Opiates Screen Urine Fentanyl Screen Ur Barbiturates Screen Ur Phencyclidine Scrn Ur Amphetamines Screen U Benzodiazepines Scrn Urine Cocaine Screen U Marijuana (THC) Screen Ethyl Alcohol COVID-19 (LISA) COVID-19 Clin Com Blood Type A Positive Antibody Screen NEGATIVE 02/23/22 02/23/22 02/23/22 11:00 11:00 11:49 MCV MCH MCHC RDW Plt Count MPV Immature Gran % (Auto) Neut % (Auto) Lymph % (Auto) [place] % (Auto) Eos % (Auto) Baso % (Auto) Lymph # (Auto) [place] # (Auto) Eos # (Auto) Baso # (Auto) Abs Immat Gran (auto) Absolute Neuts (auto) Absolute Nucleated RBC Nucleated RBC % (auto) Smear Tech's Comments PT INR Anion Gap Estim Creat Clear Calc Estimated GFR Random Glucose Lactic Acid 2.0 Calcium Magnesium Total Bilirubin Direct Bilirubin AST ALT Alkaline Phosphatase Total Protein Albumin Lipase Urine Color GAVIN Urine Appearance HAZY Urine pH 6.5 Ur Specific [place] 1.025 Urine Protein 1+ H Urine Glucose (UA) 100 H Urine Ketones SEE NOTE Urine Blood TRACE Urine Nitrite SEE NOTE Ur Leukocyte Esterase NEG Urine RBC 0-2 Urine WBC 1-4 Ur Squamous Epith Cells 3+ Urine Bacteria NONE Hyaline Casts 5-9 Granular Casts 1-4 Urine Mucus 2+ Stool Occult Blood Urine Opiates Screen Urine Fentanyl Screen Ur Barbiturates Screen Ur Phencyclidine Scrn Ur Amphetamines Screen U Benzodiazepines Scrn Urine Cocaine Screen U Marijuana (THC) Screen Ethyl Alcohol < 10 COVID-19 (LISA) COVID-19 Clin Com Blood Type Antibody Screen 02/23/22 11:49 MCV MCH MCHC RDW Plt Count MPV Immature Gran % (Auto) Neut % (Auto) Lymph % (Auto) [place] % (Auto) Eos % (Auto) Baso % (Auto) Lymph # (Auto) [place] # (Auto) Eos # (Auto) Baso # (Auto) Abs Immat Gran (auto) Absolute Neuts (auto) Absolute Nucleated RBC Nucleated RBC % (auto) Smear Tech's Comments PT INR Anion Gap Estim Creat Clear Calc Estimated GFR Random Glucose Lactic Acid Calcium Magnesium Total Bilirubin Direct Bilirubin AST ALT Alkaline Phosphatase Total Protein Albumin Lipase Urine Color Urine Appearance Urine pH Ur Specific [place] Urine Protein Urine Glucose (UA) Urine Ketones Urine Blood Urine Nitrite Ur Leukocyte Esterase Urine RBC Urine WBC Ur Squamous Epith Cells Urine Bacteria Hyaline Casts Granular Casts Urine Mucus Stool Occult Blood Urine Opiates Screen Not Detected Urine Fentanyl Screen Not Detected Ur Barbiturates Screen Not Detected Ur Phencyclidine Scrn Not Detected Ur Amphetamines Screen Not Detected U Benzodiazepines Scrn Not Detected Urine Cocaine Screen Not Detected U Marijuana (THC) Screen Not Detected Ethyl Alcohol COVID-19 (LISA) COVID-19 Clin Com Blood Type Antibody Screen <Vernell Ramos NP - Last Filed: 02/23/22 16:52> Imaging Radiologist's Impressions: Impressions Abdomen/Pelvis CT 02/23/22 12:03 IMPRESSION: 1. Moderate to large volume simple appearing peritoneal fluid is noted within the abdomen and pelvis, indeterminate etiology. 2. The liver appear heterogeneous consistent with diffuse liver disease. Evaluation is technically limited on this nonenhanced study. The liver measures 17 cm at its maximum craniocaudal dimension. 3. Cholelithiasis. 4. Oneill's catheter within the bladder. 5. Extensive atherosclerotic disease of the aortoiliac arteries without aneurysm formation. 6. Colonic diverticulosis without any CT features of acute diverticulitis. Nonvisualized appendix. Fleischner guidelines were followed. <Vernell Ramos NP - Last Filed: 02/23/22 16:52> Assessment and Plan (1) GI bleed: Status: Acute <Vernell Ramos NP - Last Filed: 02/23/22 16:52> Plan 66-year-old woman admitted with upper GI bleed, ascites with history of alcohol abuse. Apparently her last drink was 3 weeks ago. she had been drinking heavily last year and has drank for many many years. She has not seen a primary care provider in over 30 years and is hoping to be set up while she is here. Acute blood loss upper and lower GI bleed. Secondary to liver disease seen and evaluated by GI, EGD in the morning IV Ppi Trend H&H and transfuse as necessary Alcoholic liver cirrhosis with ascites 2.7 L removed via paracentesis. Lab/micro pending GI consultation Trend LFTs Hypotension. Status post paracentesis Hypovolemia from vomiting Give albumin Follow blood pressures closely Transaminitis Secondary to liver cirrhosis, trend LFTs Hyponatremia. Mild Likely secondary to insensible losses from vomiting Trend Leukocytosis no signs of infection Alcohol abuse Last drink 3 weeks ago monitor for signs of withdrawal DVT prophylaxis with mechanical compression boots due to GI bleed Attending Dr. Carranza Full code Patient likely requires 2 midnights in the hospital due to Acute blood loss GI bleeding in liver cirrhosis, will require endoscopy, IV PPI and paracentesis. <Vernell Ramos NP - Last Filed: 02/23/22 16:52> 66-year-old woman admitted with upper GI bleed, ascites with history of alcohol abuse. Apparently her last drink was 3 weeks ago. she had been drinking heavily last year and has drank for many many years. She has not seen a primary care provider in over 30 years and is hoping to be set up while she is here. Acute blood loss upper and lower GI bleed. Secondary to liver disease seen and evaluated by GI, EGD in the morning IV Ppi Trend H&H and transfuse as necessary Alcoholic liver cirrhosis with ascites 2.7 L removed via paracentesis. Lab/micro pending GI consultation Trend LFTs Hypotension. Status post paracentesis Hypovolemia from vomiting Give albumin Follow blood pressures closely Transaminitis Secondary to liver cirrhosis, trend LFTs Hyponatremia. Mild Likely secondary to insensible losses from vomiting Trend Leukocytosis no signs of infection Alcohol abuse Last drink 3 weeks ago monitor for signs of withdrawal DVT prophylaxis with mechanical compression boots due to GI bleed Attending Dr. Carranza Full code Patient likely requires 2 midnights in the hospital due to Acute blood loss GI bleeding in liver cirrhosis, will require endoscopy, IV PPI and paracentesis. 66yo F with no known chronic PMHx and no PCP, heavy EtOH abuse but quit 3 wk ago, no hx withdrawal or seizure, presenting after multiple episodes of hematemesis along with abdominal distension + melena. Found to have Tbili 5.2, Hb 10.4, AST 123, ALT 50, INR 1.8, and large amount of ascites. On exam, jaundiced and icteric, abdomen with bulging flanks but nontender. Plan to admit to [facility], keep NPO, GI consultation, IV PPI, IV octreotide drip, paracentesis <Kristi Carranza MD - Last Filed: 02/23/22 18:13> Quality Stroke Does the patient have a stroke diagnosis?: No <Vernell Ramos NP - Last Filed: 02/23/22 16:52> VTE Prior VTE?: No <Vernell Ramos NP - Last Filed: 02/23/22 16:52> VTE Risk Level:: Medical - moderate - high <Vernell Ramos NP - Last Filed: 02/23/22 16:52> VTE Device Contraindication: N/A - Device Ordered <Vernell Ramos NP - Last Filed: 02/23/22 16:52> VTE Drug Contraindication: Treatment Not Indicated <Vernell Ramos NP - Last Filed: 02/23/22 16:52>
[2022-02-23 15:38] VITALS: BP 110/64; PULSE 88; RESP 18; TEMP 37; O2SAT 94
--- NOTE | 2022-02-23 15:43 | PC.NURSE ---
patient off unit for paracentesis
[2022-02-23 15:45] LABS: Hematocrit 29.6 % (37.0-47.0); Hemoglobin 10.4 g/dl (12.0-16.0)
[2022-02-23] MEDS: Lidocaine HCl 1 % MPF 5 ML VIAL SUBCUT (16:06)
[2022-02-23 16:07] LABS: Glucose Random 112 mg/dL (60-115); Lactate Dehydrogenase 185 U/L (122-220); Total Protein 5.2 g/dL (6.5-8.0)
--- NOTE | 2022-02-23 16:40 | PM.EVENT ---
Event Note Date of Service: 02/23/22 Event Note: GI pt seen and examined, consult dictated UGIB and h/o alcohol abuse. EGD 02/24 for further evaluation and treatment.
--- NOTE | 2022-02-23 16:43 | MHC.SHP ---
Pre-Procedural Eval Section A Date of Service: 02/23/22 The patient is an INPATIENT: Yes Changes since office visit: No Cold of Flu in the past 2 weeks, No New Medical Problems, No Changes in Medication and No Patient answered all questions The History & Physical has been completed within 30 days and I have reviewed it.: Yes Section B Chief Complaint: GI Bleed ETOH Allergies: Allergies Allergy/AdvReac Type Severity Reaction Status Date / Time No Known Allergies Allergy Verified 02/14/22 10:38 Plan I have reviewed the history and physical and performed a pertinent physical examination on my patient. No changes have occurred unless specified.
[2022-02-23 16:51] LABS: MN% 76.8 %; PMN% 23.2 %; WBC Peritoneal Fluid 0.097 X10*3/uL
[2022-02-23 16:54] LABS: RBC Peritoneal Fluid < 0.002 X10*6/uL
--- NOTE | 2022-02-23 16:54 | HO.RADPN ---
RADIOLOGY Narrative Narrative: RLQ paracentesis using 5 fr catheter. L clear yellow fluid removed. Specimen sent.
[2022-02-23] MEDS: Albumin Human 25 % 50 ML 100 ML IV (17:35)
[2022-02-23 17:40] VITALS: BP 99/58; PULSE 80; RESP 15; TEMP 36.8; O2SAT 98
[2022-02-23] MEDS: Phytonadione (Vit K1) 10 MG in 0.9 % Sodium Chloride 50 ML 51 MG IV (18:08)
[2022-02-23 18:10] LABS: BF Shift QC OK YES; Lymphocyte Peritoneal Fl 26 %; Monocytes Peritoneal Fl 67 %; Neutrophils Peritoneal Fluid 2 %; Other Peritioneal Fl 5 %
--- NOTE | 2022-02-23 19:14 | CONS_ITS ---
DATE OF SERVICE: 02/23/2022 REFERRING PHYSICIAN: Vernell Ramos NP REASON FOR CONSULTATION: Alcohol abuse and upper GI bleeding. HISTORY OF PRESENT ILLNESS: Patient is a pleasant 66-year-old woman who was admitted to the hospital after presenting to the emergency room with complaints of hematemesis, which began this morning. She has a history of alcohol abuse, although she states she has not had anything to drink for last 3 weeks. She has noted abdominal bloating over this time period and felt nauseous this morning. Subsequently, she developed hematemesis with vomiting of dark red blood several times. She states stools have been loose, but denies gui melena. She has no prior history of GI bleeding and denies use of NSAIDs or blood thinners. She was evaluated in the Emergency Department where lab work was obtained showing a hematocrit of 32.5, which was down from 39 about 1 week prior. Repeat hematocrit at 3:30 p.m. was down slightly and she did receive approximately 1 L of IV fluids on admission. She subsequently underwent imaging with CT scanning of the abdomen and pelvis, which was reviewed. This showed ascites, a heterogeneous liver, and gallstones. No varices are identified on the report. PAST MEDICAL HISTORY: Alcohol abuse. She denies other medical or surgical illnesses. CURRENT MEDICATIONS: She takes no medications regularly. ALLERGIES: THERE ARE NONE REPORTED. FAMILY HISTORY: Negative for liver disease. SOCIAL HISTORY: She denies other substances. REVIEW OF SYSTEMS: SKIN: No pruritus. HEENT: Negative. CARDIOPULMONARY: She denies shortness of breath or chest pain. GASTROINTESTINAL: As above. GENITOURINARY: Negative. NEUROPSYCHIATRIC: Negative. PHYSICAL EXAMINATION: GENERAL: Shows a pleasant female. She is examined in the ultrasound room where she underwent paracentesis of 2.7 L of yellow abdominal fluid. VITAL SIGNS: Stable. SKIN: Slightly icteric. HEENT: Shows mild scleral icterus. NECK: Without lymphadenopathy or thyromegaly. LUNGS: Clear. HEART: Shows a regular rate and rhythm. S1, S2. No murmur. ABDOMEN: Soft. No focal masses or tenderness. Bowel sounds are present. No organomegaly is noted. EXTREMITIES: Without edema. LABORATORY DATA: Shows a white blood cell count of 20.5, hematocrit 32.5, platelet count 230. INR 1.8. Chemistries show a total bilirubin of 5.2 with an AST of 123 and an ALT of 50. IMPRESSION: 1. Upper gastrointestinal bleeding. 2. Alcoholic hepatitis. I discussed with the patient the differential diagnosis for upper GI bleeding, which includes gastroesophageal reflux disease, peptic ulcer disease, malignancy, and alcoholic gastritis. Esophageal varices seem unlikely based on her CAT scan findings. She currently appears quite stable with no ongoing active GI bleeding and I have recommended further evaluation with upper GI endoscopy. This will be arranged for tomorrow. We discussed risks and benefits of the procedure today. She understands and agrees to proceed. We discussed the need to cease alcohol use to allow for healing of the liver from her alcoholic hepatitis and I would recommend giving her vitamin K for her elevated INR. We will await the results of laboratory testing on her ascites fluid, but in the interim, I agree with covering her with antibiotics for possible SBP. Thanks for asking me to see her. I will follow her in the hospital with you. MD HELEN Escalante/ELIZABETH / [id number]
--- NOTE | 2022-02-23 19:28 | PC.NURSE ---
Vit K infusion just finished. This RN called pharmacy to request Ocreotide for this PT.
[2022-02-23 19:32] VITALS: BP 102/54; PULSE 79; RESP 14; O2SAT 99
[2022-02-23] MEDS: 0.9 % Sodium Chloride Flush 3 ML SYRINGE IVFLUSH (19:33)
[2022-02-23] MEDS: Octreotide Acetate 500 MCG in 0.9 % Sodium Chloride 500 ML 50.1 MCG IVCONT (20:01)
[2022-02-23 22:00] LABS: Hematocrit 25.8 % (37.0-47.0); Hemoglobin 8.9 g/dl (12.0-16.0)
[2022-02-24] VITALS (11 sets, daily range): BP systolic 91–125; BP diastolic 50–95; PULSE 62–71; RESP 15–18; TEMP 36.1–37; O2SAT 95–99; BMI 25.4
[2022-02-24] MEDS: Pantoprazole Sodium 40 MG/10 ML VIAL IVPUSH (06:55)
[2022-02-24 07:29] LABS: MANUAL DIFF FLAG NO
[2022-02-24 07:34] LABS: Basophils Absolute Auto 0.1 X10*3/uL (0.0-0.2); Basophils Percent Auto 0.5 % (0-2); Eosinophils Absolute Auto 0.2 X10*3/uL (0.0-0.4); Eosinophils Percent Auto 1.8 % (0-4); Hematocrit 25.7 % (37.0-47.0); Hemoglobin 8.9 g/dl (12.0-16.0); Imm Gran Abs Auto 0.11 X10*3/uL (0.00-0.03); Imm Gran Pct Auto 0.9 % (0.0-0.4); Lymphocytes Absolute Auto 2.8 X10*3/uL (1.2-4.9); Lymphocytes Percent Auto 22.1 % (20-40); Mean Corpuscular HGB Conc 34.6 g/dl (31.0-35.0); Mean Corpuscular Hemoglobin 35.9 pg (27.0-33.0); Mean Corpuscular Volume 103.6 fL (80.0-98.0); Mean Platelet Volume 9.8 fL (9.4-12.3); Monocytes Absolute Auto 1.2 X10*3/uL (0.1-1.2); Monocytes Percent Auto 9.4 % (2-11); Neutrophils Absolute Auto 8.3 x10*3/uL (2.0-8.3); Neutrophils Percent Auto 65.3 % (45-73); Platelet Count 184 X10*3/uL (160-400); Red Blood Count 2.48 X10*6/uL (4.20-5.50); Red Cell Distribution Width 17.1 % (11.0-16.0); White Blood Count 12.7 X10*3/uL (4.8-10.8)
[2022-02-24 07:38] LABS: INTERNATIONAL NORM RATIO 1.5 (0.9-1.1); Prothrombin Time 17.2 SEC (9.9-13.0)
[2022-02-24 07:49] LABS: Anion Gap 8 (12-20); Blood Urea Nitrogen 12 mg/dL (9-16); Calcium 7.7 mg/dL (8.4-10.2); Carbon Dioxide 27 mmol/L (22-29); Chloride 101 mmol/L (96-108); Estimated Glomerular Filt Rate > 60; Glucose Random 100 mg/dL (60-115); Potassium 4.1 mmol/L (3.3-5.1); Sodium 132 mmol/L (135-145)
[2022-02-24] MEDS: Octreotide Acetate 500 MCG in 0.9 % Sodium Chloride 500 ML 50.1 MCG IVCONT ×2 (08:11→21:06)
--- NOTE | 2022-02-24 08:30 | P.CDIC_ITS ---
CDI Concurrent Query Documentation Clarification: PHYSICIAN'S DOCUMENTATION REQUEST Date of Query: 02/24/2231 Patient Name: Palma Jimenez Admit Date: 02/23/22 Dear Doctor, A review of the medical record indicates additional documentation may be needed. Please review below and update the documentation accordingly. Clinical Indicators: Risk Factors/Clinical Indicators/Treatments H/H on 02/23/22: 11.3/32.5 with repeat 8.9/25.8 Per H&P: Acute Blood Loss Based on the above, could you clarify in the Progress Notes which of the following is the most likely type of anemia you are evaluating, treating, and/or monitoring? * Acute blood loss anemia * Acute blood loss anemia with baseline chronic anemia (specify type) * Chronic iron deficiency anemia due to blood loss * Other ? please specify * Unable to determine Use of terms such as suspected, likely, concern for, or probable (associated with a specific diagnosis that is being evaluated, monitored, or treated as if it exists) are acceptable and can be coded in the inpatient setting, when documented at the time of discharge. Thank you, Mendy Neville RN Extension: [phone] Please use your independent medical judgment in providing your response. THIS QUERY IS PART OF THE PERMANENT MEDICAL RECORD Provider Response: Acute Blood Loss Anemia (already documented in provider note)
[2022-02-24 09:03] LABS: Albumin Peritoneal Fluid 0.5; Amylase Peritoneal Fluid 27; LDH Peritoneal Fluid 27; Total Protein Peritoneal Fluid 0.9
[2022-02-24 09:05] LABS: pH Peritoneal Fluid 7.74
--- NOTE | 2022-02-24 12:00 | P.CONAN_ITS ---
[facility] Active Problems Active Problems: All Active Problems (Updated 02/23/22 @ 13:17 by Carie Jurado MD) GI bleed (Acute) Acute urinary retention (Acute) Acute hyponatremia (Acute) Past Medical History Medical History No known health problems Family History Family history of problems with anesthesia: No Surgical History History of Problems with Anesthesia: No Social History Social History Household Members: Spouse Household Members Other:: 1 Housing: House Do you presently have visiting nurse or other home services: No Alcohol intake: former Patient Tobacco Use Status: Current everyday Tobacco user Tobacco use type: Cigarette Cigarettes Per Day: 7.0 Second Hand Smoke Exposure: No Meds Allergies Allergy/AdvReac Type Severity Reaction Status Date / Time No Known Allergies Allergy Verified 02/14/22 10:38 Active Medications: Current Medications Acetaminophen (Acetaminophen 325 Mg Tablet) 650 mg PO Q6H PRN PRN Reason: Pain, Mild (Pain Scale 1-3) Octreotide Acetate 500 mcg/ (Sodium Chloride) 501 mls @ 50.1 mls/hr IVCONT .Q10H [facility] Last Admin: 02/24/22 08:11 Dose: 50 mcg/hr, 50.1 mls/hr Documented by: Ondansetron HCl (Ondansetron Hcl 4 Mg/2 Ml Vial) 4 mg IVPUSH Q8H PRN PRN Reason: Nausea and Vomiting Pantoprazole Sodium (Pantoprazole Sodium 40 Mg/10 Ml Vial) 40 mg IVPUSH BID@0630,1630 [facility] Last Admin: 02/24/22 06:55 Dose: 40 mg Documented by: Pharmacy Consult (Consult Rx Perform Med Rec) 1 each MISCELLANE ONCE PRN PRN Reason: Consult order Sodium Chloride (0.9 % Sodium Chloride Flush 3 Ml Syringe) 3 ml IVFLUSH QSHIFT [facility] Last Admin: 02/24/22 08:11 Dose: Not Given Documented by: Home Medications Medication Instructions Recorded Confirmed Last Taken Type No Known Home Meds 02/23/22 02/23/22 Unknown History Exam Exam Date and Time: February 24, 2022 1200 Height,Weight and Vital Signs: Height 5 ft 3 in Weight 65.3 kg Last Vital Signs Temp 98.0 F 02/24/22 11:31 Pulse 62 02/24/22 11:31 Resp 16 02/24/22 11:31 BP 120/95 H 02/24/22 11:31 Pulse Ox 97 02/24/22 11:31 Pertinent Lab Results Pertinent Lab Results: Laboratory Tests 02/23/22 02/23/22 02/23/22 08:46 08:46 08:46 WBC 20.5 H RBC 3.15 L Hgb 11.3 L Hct 32.5 L MCV 103.2 H MCH 35.9 H MCHC 34.8 RDW 17.3 H Plt Count 230 D MPV 10.2 Immature Gran % (Auto) 0.9 H Neut % (Auto) 75.8 H Lymph % (Auto) 14.0 L Sullivan % (Auto) 8.3 Eos % (Auto) 0.7 Baso % (Auto) 0.3 Lymph # (Auto) 2.9 Sullivan # (Auto) 1.7 H Eos # (Auto) 0.2 Baso # (Auto) 0.1 Abs Immat Gran (auto) 0.19 H Absolute Neuts (auto) 15.5 H Absolute Nucleated RBC 0.020 H Nucleated RBC % (auto) 0.1 Smear Tech's Comments VERIFIED PT 21.1 H INR 1.8 H Sodium Potassium Chloride Carbon Dioxide Anion Gap BUN Creatinine Estim Creat Clear Calc Estimated GFR Random Glucose Lactic Acid Calcium Magnesium Total Bilirubin Direct Bilirubin AST ALT Alkaline Phosphatase Lactate Dehydrogenase Total Protein Albumin Lipase Urine Color Urine Appearance Urine pH Ur Specific [place] Urine Protein Urine Glucose (UA) Urine Ketones Urine Blood Urine Nitrite Ur Leukocyte Esterase Urine RBC Urine WBC Ur Squamous Epith Cells Urine Bacteria Hyaline Casts Granular Casts Urine Mucus Peritoneal pH Peritoneal WBC j Peritoneal RBC Periton Neutrophils Periton Lymphocytes Peritoneal Monocytes Peritoneal Other Cells Peritoneal Tot Protein Peritoneal Albumin Peritoneal LDH Peritoneal Amylase Stool Occult Blood Urine Opiates Screen Urine Fentanyl Screen Ur Barbiturates Screen Ur Phencyclidine Scrn Ur Amphetamines Screen U Benzodiazepines Scrn Urine Cocaine Screen U Marijuana (THC) Screen Ethyl Alcohol COVID-19 (LISA) Negative COVID-19 Clin Com See Note Blood Type Antibody Screen 02/23/22 02/23/22 02/23/22 09:13 09:13 11:00 WBC RBC Hgb Hct MCV MCH MCHC RDW Plt Count MPV Immature Gran % (Auto) Neut % (Auto) Lymph % (Auto) Sullivan % (Auto) Eos % (Auto) Baso % (Auto) Lymph # (Auto) Sullivan # (Auto) Eos # (Auto) Baso # (Auto) Abs Immat Gran (auto) Absolute Neuts (auto) Absolute Nucleated RBC Nucleated RBC % (auto) Smear Tech's Comments PT INR Sodium 130 L Potassium 3.3 Chloride 100 Carbon Dioxide 26 Anion Gap 7 L BUN 10 D Creatinine 0.59 Estim Creat Clear Calc 84.5 Estimated GFR > 60 Random Glucose 89 Lactic Acid Calcium 7.3 L D Magnesium 1.8 Total Bilirubin 5.2 H Direct Bilirubin 3.5 H AST 123 H ALT 50 H Alkaline Phosphatase 100 D Lactate Dehydrogenase Total Protein 5.1 L D Albumin 2.4 L D Lipase 17 Urine Color Urine Appearance Urine pH Ur Specific [place] Urine Protein Urine Glucose (UA) Urine Ketones Urine Blood Urine Nitrite Ur Leukocyte Esterase Urine RBC Urine WBC Ur Squamous Epith Cells Urine Bacteria Hyaline Casts Granular Casts Urine Mucus Peritoneal pH Peritoneal WBC Peritoneal RBC Periton Neutrophils Periton Lymphocytes Peritoneal Monocytes Peritoneal Other Cells Peritoneal Tot Protein Peritoneal Albumin Peritoneal LDH Peritoneal Amylase Stool Occult Blood POSITIVE Urine Opiates Screen Urine Fentanyl Screen Ur Barbiturates Screen Ur Phencyclidine Scrn Ur Amphetamines Screen U Benzodiazepines Scrn Urine Cocaine Screen U Marijuana (THC) Screen Ethyl Alcohol COVID-19 (LISA) COVID-19 Clin Com Blood Type A Positive Antibody Screen NEGATIVE 02/23/22 02/23/22 02/23/22 11:00 11:00 11:49 WBC RBC Hgb Hct MCV MCH MCHC RDW Plt Count MPV Immature Gran % (Auto) Neut % (Auto) Lymph % (Auto) Sullivan % (Auto) Eos % (Auto) Baso % (Auto) Lymph # (Auto) Sullivan # (Auto) Eos # (Auto) Baso # (Auto) Abs Immat Gran (auto) Absolute Neuts (auto) Absolute Nucleated RBC Nucleated RBC % (auto) Smear Tech's Comments PT INR Sodium Potassium Chloride Carbon Dioxide Anion Gap BUN Creatinine Estim Creat Clear Calc Estimated GFR Random Glucose Lactic Acid 2.0 Calcium Magnesium Total Bilirubin Direct Bilirubin AST ALT Alkaline Phosphatase Lactate Dehydrogenase Total Protein Albumin Lipase Urine Color GAVIN Urine Appearance HAZY Urine pH 6.5 Ur Specific [place] 1.025 Urine Protein 1+ H Urine Glucose (UA) 100 H Urine Ketones SEE NOTE Urine Blood TRACE Urine Nitrite SEE NOTE Ur Leukocyte Esterase NEG Urine RBC 0-2 Urine WBC 1-4 Ur Squamous Epith Cells 3+ Urine Bacteria NONE Hyaline Casts 5-9 Granular Casts 1-4 Urine Mucus 2+ Peritoneal pH Peritoneal WBC Peritoneal RBC Periton Neutrophils Periton Lymphocytes Peritoneal Monocytes Peritoneal Other Cells Peritoneal Tot Protein Peritoneal Albumin Peritoneal LDH Peritoneal Amylase Stool Occult Blood Urine Opiates Screen Urine Fentanyl Screen Ur Barbiturates Screen Ur Phencyclidine Scrn Ur Amphetamines Screen U Benzodiazepines Scrn Urine Cocaine Screen U Marijuana (THC) Screen Ethyl Alcohol < 10 COVID-19 (LISA) COVID-19 Clin Com Blood Type Antibody Screen 02/23/22 02/23/22 02/23/22 11:49 15:36 15:36 WBC RBC Hgb 10.4 L Hct 29.6 L MCV MCH MCHC RDW Plt Count MPV Immature Gran % (Auto) Neut % (Auto) Lymph % (Auto) Sullivan % (Auto) Eos % (Auto) Baso % (Auto) Lymph # (Auto) Sullivan # (Auto) Eos # (Auto) Baso # (Auto) Abs Immat Gran (auto) Absolute Neuts (auto) Absolute Nucleated RBC Nucleated RBC % (auto) Smear Tech's Comments PT INR Sodium Potassium Chloride Carbon Dioxide Anion Gap BUN Creatinine Estim Creat Clear Calc Estimated GFR Random Glucose 112 Lactic Acid Calcium Magnesium Total Bilirubin Direct Bilirubin AST ALT Alkaline Phosphatase Lactate Dehydrogenase 185 Total Protein 5.2 L Albumin Lipase Urine Color Urine Appearance Urine pH Ur Specific [place] Urine Protein Urine Glucose (UA) Urine Ketones Urine Blood Urine Nitrite Ur Leukocyte Esterase Urine RBC Urine WBC Ur Squamous Epith Cells Urine Bacteria Hyaline Casts Granular Casts Urine Mucus Peritoneal pH Peritoneal WBC Peritoneal RBC Periton Neutrophils Periton Lymphocytes Peritoneal Monocytes Peritoneal Other Cells Peritoneal Tot Protein Peritoneal Albumin Peritoneal LDH Peritoneal Amylase Stool Occult Blood Urine Opiates Screen Not Detected Urine Fentanyl Screen Not Detected Ur Barbiturates Screen Not Detected Ur Phencyclidine Scrn Not Detected Ur Amphetamines Screen Not Detected U Benzodiazepines Scrn Not Detected Urine Cocaine Screen Not Detected U Marijuana (THC) Screen Not Detected Ethyl Alcohol COVID-19 (LISA) COVID-19 Clin Com Blood Type Antibody Screen 02/23/22 02/23/22 02/23/22 16:15 16:15 16:15 WBC RBC Hgb Hct MCV MCH MCHC RDW Plt Count MPV Immature Gran % (Auto) Neut % (Auto) Lymph % (Auto) Sullivan % (Auto) Eos % (Auto) Baso % (Auto) Lymph # (Auto) Sullivan # (Auto) Eos # (Auto) Baso # (Auto) Abs Immat Gran (auto) Absolute Neuts (auto) Absolute Nucleated RBC Nucleated RBC % (auto) Smear Tech's Comments PT INR Sodium Potassium Chloride Carbon Dioxide Anion Gap BUN Creatinine Estim Creat Clear Calc Estimated GFR Random Glucose Lactic Acid Calcium Magnesium Total Bilirubin Direct Bilirubin AST ALT Alkaline Phosphatase Lactate Dehydrogenase Total Protein Albumin Lipase Urine Color Urine Appearance Urine pH Ur Specific [place] Urine Protein Urine Glucose (UA) Urine Ketones Urine Blood Urine Nitrite Ur Leukocyte Esterase Urine RBC Urine WBC Ur Squamous Epith Cells Urine Bacteria Hyaline Casts Granular Casts Urine Mucus Peritoneal pH 7.74 Peritoneal WBC 0.097 Peritoneal RBC < 0.002 Periton Neutrophils 2 Periton Lymphocytes 26 Peritoneal Monocytes 67 Peritoneal Other Cells 5 Peritoneal Tot Protein 0.9 Peritoneal Albumin 0.5 Peritoneal LDH 27 Peritoneal Amylase 27 Stool Occult Blood Urine Opiates Screen Urine Fentanyl Screen Ur Barbiturates Screen Ur Phencyclidine Scrn Ur Amphetamines Screen U Benzodiazepines Scrn Urine Cocaine Screen U Marijuana (THC) Screen Ethyl Alcohol COVID-19 (LISA) COVID-19 Clin Com Blood Type Antibody Screen 02/23/22 02/24/22 02/24/22 21:53 06:50 06:50 WBC 12.7 H RBC 2.48 L D Hgb 8.9 L 8.9 L Hct 25.8 L 25.7 L MCV 103.6 H MCH 35.9 H MCHC 34.6 RDW 17.1 H Plt Count 184 MPV 9.8 Immature Gran % (Auto) 0.9 H Neut % (Auto) 65.3 Lymph % (Auto) 22.1 Sullivan % (Auto) 9.4 Eos % (Auto) 1.8 Baso % (Auto) 0.5 Lymph # (Auto) 2.8 Sullivan # (Auto) 1.2 Eos # (Auto) 0.2 Baso # (Auto) 0.1 Abs Immat Gran (auto) 0.11 H Absolute Neuts (auto) 8.3 Absolute Nucleated RBC 0.000 Nucleated RBC % (auto) 0.0 Smear Tech's Comments PT INR Sodium 132 L Potassium 4.1 D Chloride 101 Carbon Dioxide 27 Anion Gap 8 L BUN 12 Creatinine 0.60 Estim Creat Clear Calc 83.0 Estimated GFR > 60 Random Glucose 100 Lactic Acid Calcium 7.7 L Magnesium Total Bilirubin Direct Bilirubin AST ALT Alkaline Phosphatase Lactate Dehydrogenase Total Protein Albumin Lipase Urine Color Urine Appearance Urine pH Ur Specific [place] Urine Protein Urine Glucose (UA) Urine Ketones Urine Blood Urine Nitrite Ur Leukocyte Esterase Urine RBC Urine WBC Ur Squamous Epith Cells Urine Bacteria Hyaline Casts Granular Casts Urine Mucus Peritoneal pH Peritoneal WBC Peritoneal RBC Periton Neutrophils Periton Lymphocytes Peritoneal Monocytes Peritoneal Other Cells Peritoneal Tot Protein Peritoneal Albumin Peritoneal LDH Peritoneal Amylase Stool Occult Blood Urine Opiates Screen Urine Fentanyl Screen Ur Barbiturates Screen Ur Phencyclidine Scrn Ur Amphetamines Screen U Benzodiazepines Scrn Urine Cocaine Screen U Marijuana (THC) Screen Ethyl Alcohol COVID-19 (LISA) COVID-19 Clin Com Blood Type Antibody Screen 02/24/22 06:50 WBC RBC Hgb Hct MCV MCH MCHC RDW Plt Count MPV Immature Gran % (Auto) Neut % (Auto) Lymph % (Auto) Sullivan % (Auto) Eos % (Auto) Baso % (Auto) Lymph # (Auto) Sullivan # (Auto) Eos # (Auto) Baso # (Auto) Abs Immat Gran (auto) Absolute Neuts (auto) Absolute Nucleated RBC Nucleated RBC % (auto) Smear Tech's Comments PT 17.2 H INR 1.5 H Sodium Potassium Chloride Carbon Dioxide Anion Gap BUN Creatinine Estim Creat Clear Calc Estimated GFR Random Glucose Lactic Acid Calcium Magnesium Total Bilirubin Direct Bilirubin AST ALT Alkaline Phosphatase Lactate Dehydrogenase Total Protein Albumin Lipase Urine Color Urine Appearance Urine pH Ur Specific [place] Urine Protein Urine Glucose (UA) Urine Ketones Urine Blood Urine Nitrite Ur Leukocyte Esterase Urine RBC Urine WBC Ur Squamous Epith Cells Urine Bacteria Hyaline Casts Granular Casts Urine Mucus Peritoneal pH Peritoneal WBC Peritoneal RBC Periton Neutrophils Periton Lymphocytes Peritoneal Monocytes Peritoneal Other Cells Peritoneal Tot Protein Peritoneal Albumin Peritoneal LDH Peritoneal Amylase Stool Occult Blood Urine Opiates Screen Urine Fentanyl Screen Ur Barbiturates Screen Ur Phencyclidine Scrn Ur Amphetamines Screen U Benzodiazepines Scrn Urine Cocaine Screen U Marijuana (THC) Screen Ethyl Alcohol COVID-19 (LISA) COVID-19 Clin Com Blood Type Antibody Screen Airway Mallampati Class: II TM Dist: >3cm Neck ROM: Full Denture: Upper and Lower Assessment and Plan Assessment Anesthesia Assessment: Anesthesia Plan Discussed and Chart Reviewed Final Anesthetic Review Family History of Problems with Anesthesia: No History of Problems with Anesthesia: No NPO: Yes ASA Class: IV and Emergency Final Preanesthetic Review: No Changes in Pt Med Stat, Meds/Allgs Chart Reviewed, Consent Obtained/Reviewed and Anes Risks/Benef Reviewed Patient Risk: Intermediate Procedure Risk: Low Anesthetic Plan Anesthetic Plan: MAC: Disposition: Standard PACU and Inp. Admit - Standard Bed
[2022-02-24 12:14] LABS: Alanine Aminotransferase 49 U/L (0-31); Albumin Level 2.4 g/dL (3.5-5.0); Alkaline Phosphatase 82 U/L (39-117); Aspartate Amino Transferase 137 U/L (5-31); Bilirubin Direct 3.4 mg/dL (0.0-0.5); Bilirubin Total 5.6 mg/dL (0.0-1.0); Total Protein 4.8 g/dL (6.5-8.0)
--- NOTE | 2022-02-24 12:15 | MHC.CM.PN ---
met with pt who lives with her pt has no pcp joseph zamora to pt pt is vax x 3 has own ride home care team to see pt
[2022-02-24] MEDS: Lactated Ringers 1,000 ML 50 ML IVCONT (12:18)
--- NOTE | 2022-02-24 12:20 | MHC.CM.NN ---
pt dcd today back to [facility] at 2:30 son notified
--- NOTE | 2022-02-24 12:44 | PM.EVENT ---
Event Note Date of Service: 02/24/22 Event Note: EGD 3 chains of esophageal varices, one with adherent clot but no active bleeding 6 bands applied with no bleeding distal erosive esophagitis nl stomach and duodenum rec clears thes pm, advance to soft diet as dena cont octreotide x24 hrs oral ppi follow hct.
--- NOTE | 2022-02-24 14:36 | OP_ITS ---
SURGEON: Colton Vaz MD INDICATIONS: Upper GI bleeding. PREOPERATIVE DIAGNOSIS: POSTOPERATIVE DIAGNOSIS: PROCEDURE PERFORMED: Upper endoscopy with banding of esophageal varices. ESTIMATED BLOOD LOSS: COMPLICATIONS: ANESTHESIA: ASSISTANTS: SPECIMENS: MEDICATIONS: Monitored anesthesia care. DESCRIPTION OF PROCEDURE: History and physical were performed. The risks and benefits of the procedure were explained to the patient. Informed consent was obtained. The patient was placed in the left lateral decubitus position. The Olympus video gastroscope was introduced into the esophagus, stomach, and duodenum. Examination was performed and the scope was removed. She tolerated the procedure well and was taken to recovery area in stable condition. FINDINGS: Esophagus: There were 3 chains of esophageal varices, grade 2 extending from the EG junction at 38 cm to about 30 cm. One varix had an adherent clot. There was no active bleeding. There was distal esophagitis with several erosions just above the EG junction. Stomach: The stomach was normal. Duodenum: The bulb and second portion were normal. The scope was removed and the banding attachment was applied. The scope was reinserted and a total of 6 bands were placed. The initial varix with adherent clot was double banded. No bleeding was present at the termination of the procedure. IMPRESSION: 1. Esophageal varices, status post banding. 2. Erosive esophagitis. RECOMMENDATION: 1. Clear liquids, advance diet as tolerated. 2. Continue octreotide x24 hours. 3. Proton pump inhibitor. 4. Avoid alcohol. MD HELEN Escalante/ELIZABETH / [id number] [facility]
--- NOTE | 2022-02-24 16:14 | P.PNIM_ITS ---
Subjective Subjective Date of Service: 02/24/22 Interval History: seen and examined this morning follow up for GI bleeding patient denies any hematemesis or black stool since admission no abdominal pain Review of Systems Review of Systems: Yes all other systems are reviewed and are negative Constitutional Constitutional: Denies chills and Denies fever(s) Cardiovascular Cardiovascular: Denies dyspnea Respiratory Respiratory: Denies cough and Denies dyspnea Gastrointestinal Gastrointestinal: Denies abdominal pain, Denies nausea and Denies vomiting Physical Exam Vital Signs: Vital Signs: Last Vital Signs Temp 97 F 02/24/22 15:25 Pulse 62 02/24/22 15:25 Resp 15 02/24/22 15:25 BP 125/64 02/24/22 15:25 Pulse Ox 98 02/24/22 15:25 BMI result Body Mass Index 25.4 Const: General: cooperative, comfortable, no acute distress, alert and awake Nutritional Appearance: average body habitus Orientation/consciousness: patient oriented x3 Resp: Effort & Inspection: normal respiratory effort and able to speak in complete sentences Cardio: Rate: regular rate Heart sounds: S1 normal heart sound present and S2 normal heart sound present GI: Palpation (GI): Soft to palpation and nontender Neuro: General: patient oriented x3 Extrem: Other: no leg edema Objective Data Active Medications Acetaminophen (Acetaminophen 325 Mg Tablet) 650 mg PO Q6H PRN PRN Reason: Pain, Mild (Pain Scale 1-3) Octreotide Acetate 500 mcg/ (Sodium Chloride) 501 mls @ 50.1 mls/hr IVCONT .Q10H [facility] Last Admin: 02/24/22 16:03 Dose: Not Given Documented by: CAMILA Non-Admin Reason: IV Running Lactated Ringer's (Lr) 1,000 mls @ 50 mls/hr IVCONT .Q20H [facility] Last Admin: 02/24/22 12:18 Dose: 50 mls/hr Documented by: ESHA Omeprazole (Omeprazole 20 Mg Capsule.Dr) 20 mg PO BID@0630,1630 [facility] Ondansetron HCl (Ondansetron Hcl 4 Mg/2 Ml Vial) 4 mg IVPUSH Q8H PRN PRN Reason: Nausea and Vomiting Pharmacy Consult (Consult Rx Perform Med Rec) 1 each MISCELLANE ONCE PRN PRN Reason: Consult order Sodium Chloride (0.9 % Sodium Chloride Flush 3 Ml Syringe) 3 ml IVFLUSH QSHIFT [facility] Last Admin: 02/24/22 08:11 Dose: Not Given Documented by: DAVIDSON Non-Admin Reason: IV Running Labs CBC & Chem 7: 02/24/22 06:50 02/24/22 06:50 Labs: Laboratory Results - last 24 hr 02/23/22 02/23/22 02/23/22 16:15 16:15 16:15 MCV MCH MCHC RDW Plt Count MPV Immature Gran % (Auto) Neut % (Auto) Lymph % (Auto) [place] % (Auto) Eos % (Auto) Baso % (Auto) Lymph # (Auto) [place] # (Auto) Eos # (Auto) Baso # (Auto) Abs Immat Gran (auto) Absolute Neuts (auto) Absolute Nucleated RBC Nucleated RBC % (auto) PT INR Anion Gap Estim Creat Clear Calc Estimated GFR Random Glucose Calcium Total Bilirubin Direct Bilirubin AST ALT Alkaline Phosphatase Total Protein Albumin Peritoneal pH 7.74 Peritoneal WBC 0.097 Peritoneal RBC < 0.002 Periton Neutrophils 2 Periton Lymphocytes 26 Peritoneal Monocytes 67 Peritoneal Other Cells 5 Peritoneal Tot Protein 0.9 Peritoneal Albumin 0.5 Peritoneal LDH 27 Peritoneal Amylase 27 02/24/22 02/24/22 02/24/22 06:50 06:50 06:50 MCV 103.6 H MCH 35.9 H MCHC 34.6 RDW 17.1 H Plt Count 184 MPV 9.8 Immature Gran % (Auto) 0.9 H Neut % (Auto) 65.3 Lymph % (Auto) 22.1 [place] % (Auto) 9.4 Eos % (Auto) 1.8 Baso % (Auto) 0.5 Lymph # (Auto) 2.8 [place] # (Auto) 1.2 Eos # (Auto) 0.2 Baso # (Auto) 0.1 Abs Immat Gran (auto) 0.11 H Absolute Neuts (auto) 8.3 Absolute Nucleated RBC 0.000 Nucleated RBC % (auto) 0.0 PT 17.2 H INR 1.5 H Anion Gap 8 L Estim Creat Clear Calc 83.0 Estimated GFR > 60 Random Glucose 100 Calcium 7.7 L Total Bilirubin 5.6 H Direct Bilirubin 3.4 H AST 137 H ALT 49 H Alkaline Phosphatase 82 Total Protein 4.8 L Albumin 2.4 L Peritoneal pH Peritoneal WBC Peritoneal RBC Periton Neutrophils Periton Lymphocytes Peritoneal Monocytes Peritoneal Other Cells Peritoneal Tot Protein Peritoneal Albumin Peritoneal LDH Peritoneal Amylase Microbiology Microbiology Results: Microbiology 02/23/22 10:05 Blood Culture - Preliminary Blood - Venous No growth after 24 hours. 02/23/22 09:13 Blood Culture - Preliminary Blood - Venous No growth after 24 hours. 02/23/22 16:15 Gram Stain - Final Abdomen - Peritoneal Routine Culture - Preliminary No growth to date. Anaerobic Culture - Preliminary No growth to date. Assessment and Plan (1) GI bleed: Status: Acute Plan 66-year-old woman admitted with upper GI bleed, ascites with history of alcohol abuse. Apparently her last drink was 3 weeks ago. she had been drinking heavily last year and has drank for many many years. She has not seen a primary care provider in over 30 years and is hoping to be set up while she is here. Acute blood loss anemia secondary to esophageal varices seen and evaluated by GI, EGD this morning showing distal erosive esophagitis and esophageal varices, one with adherent clot but no active bleeding; 6 band applied continue octreotide until tomorrow am change to po PPI advance to clear liquids Alcoholic liver cirrhosis with ascites 2.7 L removed via paracentesis 02/23 no evidence of SBP - will d/c abx cultures with no growth to date GI consultation Trend LFTs Hypotension. bp improved at this time Status post paracentesis Hypovolemia from vomiting s/p albumin Transaminitis Secondary to liver cirrhosis trend LFTs Hyponatremia. Mild Likely secondary to insensible losses from vomiting Trend Leukocytosis wbc trending down no signs of infection Alcohol use disorder Last drink 3 weeks ago monitor on CIWA no evidence of withdrawal at this time DVT prophylaxis with mechanical compression boots due to GI bleed Attending Dr. Granados Full code Requires ongoing inpatient hospitalization due to acute gi bleeding, esophageal varices; close monitoring for bleeding Quality Stroke Does the patient have a stroke diagnosis?: No VTE Prior VTE?: No VTE Risk Level:: Medical - moderate - high VTE Device Contraindication: N/A - Device Ordered VTE Drug Contraindication: Treatment Not Indicated
[2022-02-24] MEDS: 0.9 % Sodium Chloride Flush 3 ML SYRINGE IVFLUSH (21:06)
[2022-02-25] VITALS (7 sets, daily range): BP systolic 100–149; BP diastolic 58–80; PULSE 63–75; RESP 16–19; TEMP 36.3–37.1; O2SAT 93–98
[2022-02-25] MEDS: Octreotide Acetate 500 MCG in 0.9 % Sodium Chloride 500 ML 50.1 MCG IVCONT (06:30)
[2022-02-25 06:42] LABS: MANUAL DIFF FLAG NO
[2022-02-25 06:53] LABS: Basophils Absolute Auto 0.1 X10*3/uL (0.0-0.2); Basophils Percent Auto 0.4 % (0-2); Eosinophils Absolute Auto 0.3 X10*3/uL (0.0-0.4); Eosinophils Percent Auto 2.2 % (0-4); Hemoglobin 8.8 g/dl (12.0-16.0); Imm Gran Pct Auto 0.8 % (0.0-0.4); Lymphocytes Absolute Auto 2.6 X10*3/uL (1.2-4.9); Lymphocytes Percent Auto 21.5 % (20-40); Mean Corpuscular HGB Conc 35.2 g/dl (31.0-35.0); Mean Corpuscular Hemoglobin 37.3 pg (27.0-33.0); Mean Corpuscular Volume 105.9 fL (80.0-98.0); Mean Platelet Volume 9.7 fL (9.4-12.3); Monocytes Percent Auto 8.5 % (2-11); Neutrophils Absolute Auto 8.1 x10*3/uL (2.0-8.3); Neutrophils Percent Auto 66.6 % (45-73); Platelet Count 190 X10*3/uL (160-400); Red Blood Count 2.36 X10*6/uL (4.20-5.50); White Blood Count 12.1 X10*3/uL (4.8-10.8)
[2022-02-25 07:24] LABS: Alanine Aminotransferase 63 U/L (0-31); Albumin Level 2.3 g/dL (3.5-5.0); Alkaline Phosphatase 84 U/L (39-117); Anion Gap 8 (12-20); Aspartate Amino Transferase 186 U/L (5-31); Bilirubin Direct 3.4 mg/dL (0.0-0.5); Bilirubin Total 5.1 mg/dL (0.0-1.0); Blood Urea Nitrogen 10 mg/dL (9-16); Calcium 7.6 mg/dL (8.4-10.2); Carbon Dioxide 24 mmol/L (22-29); Chloride 102 mmol/L (96-108); Creatinine Clr Calc Pharmacy 82.4; Estimated Glomerular Filt Rate > 60; Glucose Random 105 mg/dL (60-115); Potassium 3.7 mmol/L (3.3-5.1); Sodium 130 mmol/L (135-145); Total Protein 4.8 g/dL (6.5-8.0)
--- NOTE | 2022-02-25 10:09 | HO.POSTANES ---
Post Anesthesia Evaluation Post Anesthesia Evaluation Vital Signs: Vital Signs Temp Pulse Resp BP Pulse Ox 02/25/22 07:00 97.4 F 66 18 100/58 L 95 02/25/22 03:33 98.6 F 72 16 112/58 L 93 02/24/22 23:00 98.6 F 67 15 91/52 L 95 Anesthesia: Monitored Mental Status: Awake Pain Control: Satisfactory Nausea/Vomiting: None Hydration: Adequate Anesthesia-Related Issues: No Anes. Related Issues
[2022-02-25] MEDS: 0.9 % Sodium Chloride Flush 3 ML SYRINGE IVFLUSH ×3 (11:05→21:08)
--- NOTE | 2022-02-25 14:00 | HO.PM.IMPN ---
Subjective Subjective Date of Service: 02/25/22 Interval History: seen and examined this am follow up for GI bleeding no abdominal pain, vomiting, no GI bleeding tolerating clear liquids Review of Systems Review of Systems: Yes all other systems are reviewed and are negative Constitutional Constitutional: Denies chills and Denies fever(s) Cardiovascular Cardiovascular: Denies chest pain, Denies palpitations and Denies dyspnea Respiratory Respiratory: Denies cough and Denies dyspnea Gastrointestinal Gastrointestinal: Denies abdominal pain, Denies diarrhea, Denies nausea and Denies vomiting Endocrine Endocrine: Denies palpitations Physical Exam Vital Signs: Vital Signs: Last Vital Signs Temp 97.8 F 02/25/22 11:00 Pulse 63 02/25/22 11:00 Resp 18 02/25/22 11:00 BP 112/80 02/25/22 11:00 Pulse Ox 97 02/25/22 11:41 BMI result Body Mass Index 25.4 Const: General: cooperative, comfortable, no acute distress, alert and awake Nutritional Appearance: average body habitus Orientation/consciousness: patient oriented x3 Resp: Effort & Inspection: normal respiratory effort and able to speak in complete sentences Cardio: Rate: regular rate Heart sounds: S1 normal heart sound present and S2 normal heart sound present GI: Palpation (GI): Soft to palpation and nontender Neuro: General: patient oriented x3 Extrem: Other: no leg edema Objective Data Active Medications Acetaminophen (Acetaminophen 325 Mg Tablet) 650 mg PO Q6H PRN PRN Reason: Pain, Mild (Pain Scale 1-3) Omeprazole (Omeprazole 20 Mg Capsule.Dr) 20 mg PO BID@0630,1630 [facility] Last Admin: 02/25/22 05:00 Dose: Not Given Documented by: ANTOIC Non-Admin Reason: NPO Ondansetron HCl (Ondansetron Hcl 4 Mg/2 Ml Vial) 4 mg IVPUSH Q8H PRN PRN Reason: Nausea and Vomiting Pharmacy Consult (Consult Rx Perform Med Rec) 1 each MISCELLANE ONCE PRN PRN Reason: Consult order Sodium Chloride (0.9 % Sodium Chloride Flush 3 Ml Syringe) 3 ml IVFLUSH QSHIFT [facility] Last Admin: 02/25/22 11:05 Dose: 3 ml Documented by: VIVIANE Labs CBC & Chem 7: 02/25/22 06:31 02/25/22 06:31 Labs: Laboratory Results - last 24 hr 02/23/22 02/24/22 02/25/22 11:00 06:50 06:31 MCV 105.9 H MCH 37.3 H MCHC 35.2 H RDW 17.0 H Plt Count 190 MPV 9.7 Immature Gran % (Auto) 0.8 H Neut % (Auto) 66.6 Lymph % (Auto) 21.5 [place] % (Auto) 8.5 Eos % (Auto) 2.2 Baso % (Auto) 0.4 Lymph # (Auto) 2.6 [place] # (Auto) 1.0 Eos # (Auto) 0.3 Baso # (Auto) 0.1 Abs Immat Gran (auto) 0.10 H Absolute Neuts (auto) 8.1 Absolute Nucleated RBC 0.000 Nucleated RBC % (auto) 0.0 Sodium 130 L 132 L Anion Gap Estim Creat Clear Calc Estimated GFR Random Glucose Calcium Total Bilirubin Direct Bilirubin AST ALT Alkaline Phosphatase Total Protein Albumin 02/25/22 06:31 MCV MCH MCHC RDW Plt Count MPV Immature Gran % (Auto) Neut % (Auto) Lymph % (Auto) [place] % (Auto) Eos % (Auto) Baso % (Auto) Lymph # (Auto) [place] # (Auto) Eos # (Auto) Baso # (Auto) Abs Immat Gran (auto) Absolute Neuts (auto) Absolute Nucleated RBC Nucleated RBC % (auto) Sodium 130 L Anion Gap 8 L Estim Creat Clear Calc 82.4 Estimated GFR > 60 Random Glucose 105 Calcium 7.6 L Total Bilirubin 5.1 H Direct Bilirubin 3.4 H AST 186 H ALT 63 H Alkaline Phosphatase 84 Total Protein 4.8 L Albumin 2.3 L Microbiology Microbiology Results: Microbiology 02/23/22 10:05 Blood Culture - Preliminary Blood - Venous No growth after 48 hours. 02/23/22 09:13 Blood Culture - Preliminary Blood - Venous No growth after 48 hours. 02/23/22 16:15 Gram Stain - Final Abdomen - Peritoneal Routine Culture - Preliminary No growth to date. Anaerobic Culture - Preliminary No growth to date. Assessment and Plan (1) Liver cirrhosis: Status: Acute (2) Esophageal varices: Status: Acute (3) Erosive esophagitis: Status: Acute Plan 66-year-old woman admitted with upper GI bleed, ascites with history of alcohol abuse. Apparently her last drink was 3 weeks ago. she had been drinking heavily last year and has drank for many many years. She has not seen a primary care provider in over 30 years and is hoping to be set up while she is here. Acute blood loss anemia secondary to esophageal varices seen and evaluated by GI, EGD this morning showing distal erosive esophagitis and esophageal varices, one with adherent clot but no active bleeding; 6 bands applied octreotide d/c continue po PPI advance diet H/H stable Alcoholic liver cirrhosis with ascites 2.7 L removed via paracentesis 02/23 no evidence of SBP - will d/c abx cultures with no growth to date GI following LFTs stable US showing cirrhotic appearing liver, no thrombosis; dampened waveform in heparin veins and intrahepatic IVF - recommend outpatient ECHO monitor H/H overnight will need outpatient follow up with GI for surveillance EGDs Hypotension. bp soft Status post paracentesis and Hypovolemia from vomiting and liver cirrhosis s/p albumin Transaminitis Secondary to liver cirrhosis trend LFTs Hyponatremia. sodium 130 Likely secondary to cirrhosis Trend Leukocytosis wbc trending down no signs of infection Alcohol use disorder Last drink 3 weeks ago monitor on CIWA no evidence of withdrawal at this time DVT prophylaxis with mechanical compression boots due to GI bleed Attending Dr. Granados Full code Requires ongoing inpatient hospitalization due to acute gi bleeding, esophageal varices; close monitoring for bleeding Quality Stroke Does the patient have a stroke diagnosis?: No VTE Prior VTE?: No VTE Risk Level:: Medical - moderate - high VTE Device Contraindication: N/A - Device Ordered VTE Drug Contraindication: Treatment Not Indicated
[2022-02-25] MEDS: Omeprazole 20 MG CAPSULE.DR PO (16:21)
--- NOTE | 2022-02-25 16:40 | P.PNGI_ITS ---
Subjective Subjective Date of Service: 02/25/22 Interval History: tolerating diet no melena Critical Care Time (minutes): 0 Physical Exam Vital Signs: Vital Signs: Last Vital Signs Temp 98.6 F 02/25/22 15:19 Pulse 69 02/25/22 15:19 Resp 16 02/25/22 15:19 BP 131/62 02/25/22 15:19 Pulse Ox 98 02/25/22 15:19 BMI result Body Mass Index 25.4 Const: General: cooperative GI: Other: abdomen is soft and nontender Objective Data Labs CBC & Chem 7: 02/25/22 06:31 02/25/22 06:31 Microbiology Microbiology Results: Microbiology 02/23/22 10:05 Blood - Venous Blood Culture - Preliminary No growth after 48 hours. 02/23/22 09:13 Blood - Venous Blood Culture - Preliminary No growth after 48 hours. 02/23/22 16:15 Abdomen - Peritoneal Gram Stain - Final 02/23/22 16:15 Abdomen - Peritoneal Routine Culture - Preliminary No growth to date. 02/23/22 16:15 Abdomen - Peritoneal Anaerobic Culture - Preliminary No growth to date. 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 Fall Risk Details Current Medications: Current Medications Acetaminophen (Acetaminophen 325 Mg Tablet) 650 mg PO Q6H PRN PRN Reason: Pain, Mild (Pain Scale 1-3) Omeprazole (Omeprazole 20 Mg Capsule.) 20 mg PO BID@0630,1630 [facility] Last Admin: 02/25/22 16:21 Dose: 20 mg Documented by: Ondansetron HCl (Ondansetron Hcl 4 Mg/2 Ml Vial) 4 mg IVPUSH Q8H PRN PRN Reason: Nausea and Vomiting Pharmacy Consult (Consult Rx Perform Med Rec) 1 each MISCELLANE ONCE PRN PRN Reason: Consult order Sodium Chloride (0.9 % Sodium Chloride Flush 3 Ml Syringe) 3 ml IVFLUSH QSHIFT [facility] Last Admin: 02/25/22 16:21 Dose: 3 ml Documented by: Time Spent With Patient Time: Total time spent is greater than 50% in coordination of care (as documented) at patient's floor/unit and/or counseling patient: Quality Stroke Does the patient have a stroke diagnosis?: No VTE Prior VTE?: No VTE Risk Level:: Medical - moderate - high VTE Device Contraindication: N/A - Device Ordered VTE Drug Contraindication: Treatment Not Indicated
[2022-02-26] VITALS (7 sets, daily range): BP systolic 100–140; BP diastolic 54–69; PULSE 69–80; RESP 17–19; TEMP 36.4–37.1; O2SAT 95–99
[2022-02-26] MEDS: Omeprazole 20 MG CAPSULE.DR PO ×2 (05:37→16:31)
[2022-02-26 07:09] LABS: Hematocrit 26.8 % (37.0-47.0); Hemoglobin 9.3 g/dl (12.0-16.0)
[2022-02-26] MEDS: 0.9 % Sodium Chloride Flush 3 ML SYRINGE IVFLUSH ×3 (09:11→21:19)
--- NOTE | 2022-02-26 14:30 | P.PNIM_ITS ---
Subjective Subjective Date of Service: 02/26/22 Review of Systems Follow up for GI bleeding no abdominal pain, vomiting, no GI bleeding tolerating diet Physical Exam Vital Signs: Vital Signs: Last Vital Signs Temp 97.5 F 02/26/22 11:00 Pulse 76 02/26/22 11:00 Resp 18 02/26/22 11:00 BP 119/69 02/26/22 11:00 Pulse Ox 99 02/26/22 12:00 BMI result Body Mass Index 25.4 Appearing in no acute distress lung sounds are clear to auscultation heart regular rate rhythm, clear S1, S2 positive bowel sounds, abdomen is soft, nontender neuro patient is alert x3, no focal deficits Objective Data Active Medications Acetaminophen (Acetaminophen 325 Mg Tablet) 650 mg PO Q6H PRN PRN Reason: Pain, Mild (Pain Scale 1-3) Omeprazole (Omeprazole 20 Mg Capsule.Dr) 20 mg PO BID@0630,1630 [facility] Last Admin: 02/26/22 05:37 Dose: 20 mg Documented by: DAPHNE Ondansetron HCl (Ondansetron Hcl 4 Mg/2 Ml Vial) 4 mg IVPUSH Q8H PRN PRN Reason: Nausea and Vomiting Pharmacy Consult (Consult Rx Perform Med Rec) 1 each MISCELLANE ONCE PRN PRN Reason: Consult order Sodium Chloride (0.9 % Sodium Chloride Flush 3 Ml Syringe) 3 ml IVFLUSH QSHIFT [facility] Last Admin: 02/26/22 09:11 Dose: 3 ml Documented by: ZABRINA Labs CBC & Chem 7: 02/26/22 06:38 02/25/22 06:31 Microbiology Microbiology Results: Microbiology 02/23/22 16:15 Gram Stain - Final Abdomen - Peritoneal Routine Culture - Final No growth after 2 days Anaerobic Culture - Preliminary No growth to date. 02/23/22 10:05 Blood Culture - Preliminary Blood - Venous No growth after 48 hours. 02/23/22 09:13 Blood Culture - Preliminary Blood - Venous No growth after 48 hours. Assessment and Plan (1) Liver cirrhosis: Status: Acute (2) Esophageal varices: Status: Acute (3) Erosive esophagitis: Status: Acute Plan 66-year-old woman admitted with upper GI bleed, ascites with history of alcohol abuse. Apparently her last drink was 3 weeks ago. she had been drinking heavily last year and has drank for many many years. She has not seen a primary care provider in over 30 years and is hoping to be set up while she is here. Acute blood loss anemia secondary to esophageal varices seen and evaluated by GI, EGD this morning showing distal erosive esophagitis and esophageal varices, one with adherent clot but no active bleeding; 6 bands applied octreotide d/c continue po PPI advance diet H/H stable Alcoholic liver cirrhosis with ascites 2.7 L removed via paracentesis 02/23 no evidence of SBP - will d/c abx cultures with no growth to date GI following LFTs stable US showing cirrhotic appearing liver, no thrombosis; dampened waveform in heparin veins and intrahepatic IVF - recommend outpatient ECHO monitor H/H overnight will need outpatient follow up with GI for surveillance EGDs Hypotension. bp soft Status post paracentesis and Hypovolemia from vomiting and liver cirrhosis s/p albumin Transaminitis Secondary to liver cirrhosis trend LFTs Hyponatremia. sodium 130 Likely secondary to cirrhosis Trend Leukocytosis wbc trending down no signs of infection Alcohol use disorder Last drink 3 weeks ago monitor on CIWA no evidence of withdrawal at this time DVT prophylaxis with mechanical compression boots due to GI bleed Attending Dr. Villanueva Full code Requires ongoing inpatient hospitalization due to acute gi bleeding, esophageal varices; close monitoring for bleeding Quality Stroke Does the patient have a stroke diagnosis?: No VTE Prior VTE?: No VTE Risk Level:: Medical - moderate - high VTE Device Contraindication: N/A - Device Ordered VTE Drug Contraindication: Treatment Not Indicated
[2022-02-27 03:53] VITALS: BP 118/58; PULSE 72; RESP 17; TEMP 36.3; O2SAT 99
[2022-02-27] MEDS: Omeprazole 20 MG CAPSULE.DR PO ×2 (05:43→15:29)
[2022-02-27 06:00] LABS: Hematocrit 26.9 % (37.0-47.0); Hemoglobin 9.3 g/dl (12.0-16.0); Mean Corpuscular HGB Conc 34.6 g/dl (31.0-35.0); Mean Corpuscular Hemoglobin 36.3 pg (27.0-33.0); Mean Corpuscular Volume 105.1 fL (80.0-98.0); Mean Platelet Volume 9.7 fL (9.4-12.3); Platelet Count 214 X10*3/uL (160-400); Red Blood Count 2.56 X10*6/uL (4.20-5.50); Red Cell Distribution Width 16.3 % (11.0-16.0); White Blood Count 13.5 X10*3/uL (4.8-10.8)
[2022-02-27 06:21] LABS: Alanine Aminotransferase 73 U/L (0-31); Albumin Level 2.5 g/dL (3.5-5.0); Alkaline Phosphatase 99 U/L (39-117); Anion Gap 8 (12-20); Aspartate Amino Transferase 163 U/L (5-31); Bilirubin Direct 1.8 mg/dL (0.0-0.5); Bilirubin Total 2.6 mg/dL (0.0-1.0); Blood Urea Nitrogen 7 mg/dL (9-16); Carbon Dioxide 24 mmol/L (22-29); Chloride 103 mmol/L (96-108); Creatinine Clr Calc Pharmacy 88.1; Estimated Glomerular Filt Rate > 60; Glucose Random 98 mg/dL (60-115); Potassium 3.9 mmol/L (3.3-5.1); Sodium 131 mmol/L (135-145); Total Protein 5.1 g/dL (6.5-8.0)
[2022-02-27 08:00] VITALS: BP 148/67; PULSE 72; RESP 18; TEMP 36.4; O2SAT 96
[2022-02-27] MEDS: 0.9 % Sodium Chloride Flush 3 ML SYRINGE IVFLUSH ×2 (10:32→15:29)
--- NOTE | 2022-02-27 10:33 | MHC.RECOVSUP ---
Recovery Support note: Patient is a 66 year old [place]o speaking female who presented to [facility] due to vomiting blood. This specifications writer met with patient in [id number] to discuss alcohol use and recovery supports. Patient reports she and her stopped drinking over a month ago and that she doesn't even miss it. Patient reports over the last several months they have been reducing their consumption gradually over time and that around a month ago she began having abdominal pain so she stopped drinking entirely. Patient reports had I known 20 years ago this would happen, I would have stopped then. Patient reports she has had no problems maintaining sobriety and that she doesn't anticipate any issues moving forward. Patient reports she may consider trying non-alcohol beer in the future if she misses the taste. Discussed relapse prevention and the importance of maintaining sobriety. Discussed recovery supports with patient. Patient stated adamantly, I don't need it. Patient reports she is supported by her and that their friends have respected their decision to stop drinking. Patient reports she has also reduced her cigarette consumption from 2 and a half packs a day to half a pack. Discussed smoking cessation with patient.
--- NOTE | 2022-02-27 11:23 | P.DS_ITS ---
DS: Providers Provider Date of Service: 02/27/22 Date of admission: 02/23/22 14:44 Primary care physician: Unknown Physician Consults: 02/23/22 14:45 Consult to Gastroenterology Routine Consulting Provider: Grant Howard Reason for consultation: GI bleed, ETOH Has provider been notified: No 02/27/22 07:54 Consult to Care Team Routine Comment: Reason for consultation: Alcohol abuse Attending physician on discharge: Tj Villanueva Discharging clinician: Vernell Ramos DS: Diagnosis Discharge Diagnosis (1) Liver cirrhosis: Status: Acute (2) Esophageal varices: Status: Acute (3) Erosive esophagitis: Status: Acute DS: Summary Hospital Course Hospital Course: 66-year-old woman who presented to the ER after multiple episodes of vomiting bright red blood.? She reports that it started this morning.? She reported that she had been a heavy drinker for many years and quit with her approximately 3 weeks ago, she did not really quantify how much she drinks but she reported beer and hard liquor, she reported that she was drinking even have your last year.? She denied chest pain, shortness of breath, diarrhea.? She reported that her abdomen felt full as if she had eaten a big meal started feeling nauseous and vomited several times.? She did report some black stool.? She had had diffuse abdominal pain for over a week.? Her H&H is stable at 10.4 and 29.6, bilirubin 5.2, AST 123, ALT 50.? In the ER, she was given octreotide, IV Protonix, Rocephin, Compazine and her 1L of IV fluid.? She will be admitted for further management and treatment of acute upper GI bleed Acute blood loss anemia secondary to esophageal varices, seen and evaluated by GI, EGD this morning showing distal erosive esophagitis and esophageal varices, one with adherent clot but no active bleeding; 6 bands applied Treated with octreotide, continue po PPI. Alcoholic liver cirrhosis with ascites. 2.7 L removed via paracentesis 02/23, no evidence of SBP. Negative cultures to date LFTs stable. US showing cirrhotic appearing liver, no thrombosis Transaminitis. Secondary to liver cirrhosis Hyponatremia.? sodium 130, Likely secondary to cirrhosis, 131 today. trending up. Alcohol use disorder. Last drink 3 weeks ago. no active withdrawl noted Time Spent with Patient Time attestation: Total time spent providing and/or coordinating discharge services: Discharge coordination time: Greater than 30 minutes Quality: Safe Use of Opioids Does Pt have an Active Cancer Diagnosis on the Problem List?: No Quality: Stroke Does the patient have a stroke diagnosis?: No Physical Exam Vital Signs: Vital Signs: Last Vital Signs Temp 97.6 F 02/27/22 08:00 Pulse 72 02/27/22 08:00 Resp 18 02/27/22 08:00 BP 148/67 H 02/27/22 08:00 Pulse Ox 96 02/27/22 08:00 BMI result Body Mass Index 25.4 Appearing in no acute distress head is normocephalic atraumatic eyes pupils are PERRLA sclera is anicteric mouth throat mucous membranes are intact and moist neck is supple no lymphadenopathy, no JVD noted lung sounds are clear to auscultation heart regular rate rhythm, clear S1, S2 positive bowel sounds, abdomen is soft, nontender neuro patient is alert x3, no focal deficits DS: Data Data Completed and Pending Labs on day of discharge: Laboratory Results - last 24 hr 02/27/22 02/27/22 02/27/22 05:45 05:45 05:45 WBC 13.5 H RBC 2.56 L Hgb 9.3 L Hct 26.9 L MCV 105.1 H MCH 36.3 H MCHC 34.6 RDW 16.3 H Plt Count 214 MPV 9.7 Absolute Nucleated RBC 0.000 Nucleated RBC % (auto) 0.0 Sodium 131 L Potassium 3.9 Chloride 103 Carbon Dioxide 24 Anion Gap 8 L BUN 7 L Creatinine 0.57 Estim Creat Clear Calc 88.1 Estimated GFR > 60 Random Glucose 98 Calcium 8.0 L Total Bilirubin 2.6 H Direct Bilirubin 1.8 H AST 163 H ALT 73 H Alkaline Phosphatase 99 Total Protein 5.1 L Albumin 2.5 L Preliminary micro results at discharge 02/23/22 16:15 Anaerobic Culture - Preliminary Abdomen - Peritoneal No growth to date. 02/23/22 10:05 Blood Culture - Preliminary Blood - Venous No growth after 48 hours. 02/23/22 09:13 Blood Culture - Preliminary Blood - Venous No growth after 48 hours. Discharge Plan Discharge Anticipated Discharge Date/Time: 02/27/22 11:15 Patient Disposition: Home, Self-Care Discharge Diagnosis: Acute blood loss anemia secondary to esophageal varices Alcoholic liver cirrhosis with ascites Referrals: Grant Howard [Physician] - 1 Week Discharge Medications: New omeprazole 20 mg Capsule,Delayed Release(Dr/Ec) 20 mg PO BID@0630,1630 Qty: 60 0RF Discharge Orders: Discharge Order (Routine); Ordered 02/27/22 Ordered By: Vernell Ramos Diet: advance to usual diet Activity on Discharge: As tolerated Stand Alone Forms: Patient Portal Discharge page Care Plan Goals: No further episodes of bleeding Stop drinking alcohol Health Concerns: Acute blood loss anemia secondary to esophageal varices Alcoholic liver cirrhosis with ascites Plan of Treatment: Follow up with the database technician as needed Follow up with your primary care provider as needed Assessment: See discharge summary
[2022-02-27 11:28] VITALS: BP 127/63; PULSE 71; RESP 18; TEMP 36.7; O2SAT 98
[2022-02-27 12:00] VITALS: O2SAT 98
--- NOTE | 2022-02-27 12:24 | MHC.CM.PN ---
HOME - SELF CARE IMM 4/ IN CHART
[2022-02-27 15:39] VITALS: BP 130/64; PULSE 85; RESP 18; TEMP 36.8; O2SAT 99
== END 2022-02-27 17:45 | disposition home or self-care (01) | DRG 432 ==
LOC: HO.ED 11:14 → HO.EDOVER 14:54 → HO.IMC 02-24 07:29 → HO.S3 02-26 23:42
PROVIDERS: Family Medicine; Internal Medicine Gastroenterology; Physician Assistant Medical; Radiology Diagnostic Radiology; Admitting Provider Nurse Practitioner Acute Care; Emergency Provider Emergency Medicine; Visit Provider Nurse Practitioner Acute Care
PROC: 0W9G3ZZ Drainage of Peritoneal Cavity, Percutaneous Approach (ICD-10-PCS; principal; 2022-02-23 15:30)
PROC: 0DJ08ZZ Inspection of Upper Intestinal Tract, Via Natural or Artificial Opening Endoscopic (ICD-10-PCS; CPT 43235; principal; 2022-02-24 12:30)
DX: K70.31 Alcoholic cirrhosis of liver with ascites (principal); K22.11 Ulcer of esophagus with bleeding; I85.10 Secondary esophageal varices without bleeding; E87.1 Hypo-osmolality and hyponatremia; D62 Acute posthemorrhagic anemia; I95.9 Hypotension, unspecified; E86.1 Hypovolemia; F10.11 Alcohol abuse, in remission; R33.9 Retention of urine, unspecified; Z20.822 Contact with and (suspected) exposure to COVID-19; F17.210 Nicotine dependence, cigarettes, uncomplicated; Z71.6 Tobacco abuse counseling; Z79.899 Other long term (current) drug therapy
CPT/HCPCS: 36415; 49083; 74176; 76700; 80048; 80076; 80307; 81001; 81003; 82042; 82077; 82150; 82272; 82947; 83605; 83615; 83690; 83735; 83986; 84155; 84157; 85014; 85018; 85025; 85027; 85610; 86850; 86900; 86901; 87040; 87071; 87073; 87116; 87205; 87635; 89051; 93005; 93975; 96361; 96374; 96375; 99285; C1758; J0696; J2354; J3430; P9047

== ENCOUNTER 2022-04-08 09:11 | Outpatient (REF) | payer MEDICARE, OTHER, SELFPAY ==
[2022-04-08 10:19] LABS: INTERNATIONAL NORM RATIO 1.4 (0.9-1.1); Prothrombin Time 15.5 SEC (9.9-13.0)
[2022-04-08 10:38] LABS: Basophils Percent Auto 0.1 % (0-2); Eosinophils Absolute Auto 0.1 X10*3/uL (0.0-0.4); Eosinophils Percent Auto 0.5 % (0-4); Imm Gran Abs Auto 0.08 X10*3/uL (0.00-0.03); Imm Gran Pct Auto 0.6 % (0.0-0.4); Lymphocytes Absolute Auto 1.7 X10*3/uL (1.2-4.9); Lymphocytes Percent Auto 12.8 % (20-40); MANUAL DIFF FLAG SCAN; Mean Corpuscular HGB Conc 33.6 g/dl (31.0-35.0); Mean Corpuscular Hemoglobin 32.1 pg (27.0-33.0); Mean Corpuscular Volume 95.5 fL (80.0-98.0); Mean Platelet Volume 9.6 fL (9.4-12.3); Monocytes Absolute Auto 1.7 X10*3/uL (0.1-1.2); Monocytes Percent Auto 12.8 % (2-11); Neutrophils Absolute Auto 9.9 x10*3/uL (2.0-8.3); Neutrophils Percent Auto 73.2 % (45-73); Platelet Count 143 X10*3/uL (160-400); Red Blood Count 3.77 X10*6/uL (4.20-5.50); Red Cell Distribution Width 14.9 % (11.0-16.0); SCAN SMEAR FLAG 1; White Blood Count 13.5 X10*3/uL (4.8-10.8)
[2022-04-08 10:43] LABS: Hemoglobin 12.1 g/dl (12.0-16.0)
[2022-04-08 10:49] LABS: Alanine Aminotransferase 46 U/L (0-31); Albumin Level 2.6 g/dL (3.5-5.0); Alkaline Phosphatase 136 U/L (39-117); Aspartate Amino Transferase 73 U/L (5-31); Bilirubin Direct 1.3 mg/dL (0.0-0.5); Bilirubin Total 2.5 mg/dL (0.0-1.0); Total Protein 6.9 g/dL (6.5-8.0)
[2022-04-08 11:17] LABS: SLIDE REVIEW VERIFIED
== END 2022-04-08 09:12 | disposition home or self-care (01) ==
LOC: HO.LAB 09:11
PROVIDERS: Visit Provider Internal Medicine Gastroenterology
DX: K70.31 Alcoholic cirrhosis of liver with ascites (principal)
CPT/HCPCS: 36415; 80076; 85025; 85610

== ENCOUNTER 2022-04-12 11:55 | Day surgery (SDC) | payer MEDICARE, OTHER, SELFPAY ==
--- NOTE | 2022-04-11 09:43 | HO.ANESPROP2 ---
Documented by User: Rosalinda Holt NP 04/11/22 09:47 HPI - Anesthesia Eval Consult details Narrative: 66yo F for Upper Endoscopy ETOH cirrhosis s/p EGD and varicele banding 01/2022 with MAC PMFSH Past Medical History Medical History Erosive esophagitis Esophageal varices Liver cirrhosis No known health problems Family History Family history of problems with anesthesia: No Surgical History History of Problems with Anesthesia: No Social History Social History Household Members: Spouse Household Members Other:: 1 Housing: House Do you presently have visiting nurse or other home services: No Alcohol intake: former Patient Tobacco Use Status: Current everyday Tobacco user Tobacco use type: Cigarette Cigarette Packs Per Day: 2.5 Cigarettes Per Day: 50.0 Second Hand Smoke Exposure: No Use of substances other than those prescribed or required for medical reasons: No Are you DNR?: No Advance Directives: No Advance Directives Information Provided: Yes service: No Meds Allergies Allergy/AdvReac Type Severity Reaction Status Date / Time No Known Allergies Allergy Verified 02/14/22 10:38 Exam Exam Date and Time: April 11, 2022 0943 Narrative Narrative: EKG 01/2022 Vent. Rate : 097 BPM ? ? Atrial Rate : 097 BPM ?? P-R Int : 128 ms? QRS Dur : 118 ms ? ? QT Int : 406 ms ? ? ? P-R-T Axes : 064 058 009 degrees ?? QTc Int : 515 ms ? Normal sinus rhythm Incomplete right bundle branch block ST & T wave abnormality, consider anterior ischemia Abnormal ECG No previous ECGs available US duplex arterial venous comp 01/2022 IMPRESSION: Cirrhotic-appearing liver. Gallstones. Slightly dampened waveform in the hepatic veins and intrahepatic IVC. Liver Doppler exam is otherwise normal. Small amount of ascites. Assessment and Plan Assessment Anesthesia Assessment: Chart Reviewed Final Anesthetic Review Family History of Problems with Anesthesia: No History of Problems with Anesthesia: No Documented by User: Vee Coker MD 04/12/22 12:45 PMFSH Active Problems Active Problems: Pitting edema up to thighs Feet with blisters, macerated skin ?COPD vs CHF - wheezy. Sats 95% RA. Denies SOB Smoker- last cigarette a few hours ago Ascites H/o ETOH abuse. Denies any recent use Past Medical History Medical History Erosive esophagitis Esophageal varices Liver cirrhosis No known health problems Social History Social History Household Members: Spouse Household Members Other:: 1 Housing: House Do you presently have visiting nurse or other home services: No Alcohol intake: former Patient Tobacco Use Status: Current everyday Tobacco user Tobacco use type: Cigarette Cigarette Packs Per Day: 2.5 Cigarettes Per Day: 50.0 Second Hand Smoke Exposure: No Use of substances other than those prescribed or required for medical reasons: No Are you DNR?: No Advance Directives: No Advance Directives Information Provided: Yes service: No Meds Allergies Allergy/AdvReac Type Severity Reaction Status Date / Time No Known Allergies Allergy Verified 02/14/22 10:38 Exam Height,Weight and Vital Signs: Height 5 ft 3 in Weight 58.513 kg Vital Signs Temp Pulse Resp BP Pulse Ox 04/12/22 12:33 97.0 F 92 18 123/85 94 Pertinent Lab Results Pertinent Lab Results: Lab Results 04/12/22 Range/Units 12:09 WBC 15.0 H (4.8-10.8) X10*3/uL RBC 3.92 L (4.20-5.50) X10*6/uL Hgb 12.4 (12.0-16.0) g/dl Hct 37.0 (37.0-47.0) % MCV 94.4 (80.0-98.0) fL MCH 31.6 (27.0-33.0) pg MCHC 33.5 (31.0-35.0) g/dl RDW 14.9 (11.0-16.0) % Plt Count 139 L (160-400) X10*3/uL MPV 9.3 L (9.4-12.3) fL Absolute Nucleated RBC 0.000 (0.0-0.012) X10*3/uL Nucleated RBC % (auto) 0.0 (0.0-0.2) /100WBC Airway Mallampati Class: II TM Dist: >3cm Neck ROM: Full Denture: Upper and Lower Loose/Missing/Broken Teeth: Yes (No teeth in) Heart: RRR Lungs: CTAB Assessment and Plan Assessment Anesthesia Assessment: Anesthesia Plan Discussed Final Anesthetic Review NPO: Yes ASA Class: III Final Preanesthetic Review: No Changes in Pt Med Stat, Meds/Allgs Chart Reviewed, Consent Obtained/Reviewed and Anes Risks/Benef Reviewed Patient Risk: Intermediate Procedure Risk: Low Assessment/Block/Sedation in SS: Assess/Block/Sedation-SS Anesthetic Plan Anesthetic Plan: MAC: Disposition: Standard PACU
[2022-04-12] VITALS (8 sets, daily range): BP systolic 92–177; BP diastolic 60–88; PULSE 92–120; RESP 16–23; TEMP 36.1–36.6; O2SAT 87–94; BMI 22.8
[2022-04-12 12:25] LABS: Hemoglobin 12.4 g/dl (12.0-16.0); Mean Corpuscular HGB Conc 33.5 g/dl (31.0-35.0); Mean Corpuscular Hemoglobin 31.6 pg (27.0-33.0); Mean Corpuscular Volume 94.4 fL (80.0-98.0); Mean Platelet Volume 9.3 fL (9.4-12.3); Platelet Count 139 X10*3/uL (160-400); Red Blood Count 3.92 X10*6/uL (4.20-5.50); Red Cell Distribution Width 14.9 % (11.0-16.0)
[2022-04-12 12:44] LABS: Alanine Aminotransferase 36 U/L (0-31); Albumin Level 2.5 g/dL (3.5-5.0); Alkaline Phosphatase 131 U/L (39-117); Anion Gap 10 (12-20); Aspartate Amino Transferase 55 U/L (5-31); Bilirubin Total 2.6 mg/dL (0.0-1.0); Blood Urea Nitrogen 25 mg/dL (9-16); Calcium 8.5 mg/dL (8.4-10.2); Carbon Dioxide 25 mmol/L (22-29); Chloride 100 mmol/L (96-108); Creatinine Clr Calc Pharmacy 43.9; Estimated Glomerular Filt Rate 53; Glucose Fasting 103 mg/dL (60-99); Potassium 3.9 mmol/L (3.3-5.1); Sodium 131 mmol/L (135-145); Total Protein 6.6 g/dL (6.5-8.0)
[2022-04-12] MEDS: Albuterol Sulfate (0.083%) 2.5 MG/3 ML VIAL.NEB INHALE ×2 (12:45→13:51)
[2022-04-12 12:49] LABS: INTERNATIONAL NORM RATIO 1.5 (0.9-1.1); Prothrombin Time 16.6 SEC (9.9-13.0)
--- NOTE | 2022-04-12 12:54 | PC.NURSE ---
pt noted to have +3 pitting edema to BLE to thighs. pt had soaking wet sucks on upon arrival. states swelling has been happening for months and unable to fit shoes. pt also noted to have open wound to top of left foot about size of baseball. guaze applied and fresh pair of socks. small nickel size wound starting to appear open on right foot. Dr. Vaz aware and pt educated on importance of needed PCP and possible wound follow up.
--- NOTE | 2022-04-12 12:55 | MHC.SHP ---
Pre-Procedural Eval Section A Date of Service: 04/12/22 The patient is an INPATIENT: No Changes since office visit: No Cold of Flu in the past 2 weeks, No New Medical Problems, No Changes in Medication and No Patient answered all questions The History & Physical has been completed within 30 days and I have reviewed it.: Yes Section B Chief Complaint: Esophageal varices without bleeding Allergies: Allergies Allergy/AdvReac Type Severity Reaction Status Date / Time No Known Allergies Allergy Verified 02/14/22 10:38 Plan I have reviewed the history and physical and performed a pertinent physical examination on my patient. No changes have occurred unless specified.
--- NOTE | 2022-04-12 13:57 | P.BOP_ITS ---
Brief Operative Note Date of Service: 04/12/22 Pre-op diagnosis: esophageal varices Post-op diagnosis: same Procedure: EGD Surgeon: Colton Vaz Anesthesia: MAC Was an Administrator Of Home Health used for this Procedure?: No Estimated blood loss (mL): 50 Pathology: none sent Condition: stable Disposition: PACU
--- NOTE | 2022-04-13 01:13 | OP_ITS ---
SURGEON: Colton Vaz MD INDICATIONS: Esophageal varices with history of bleeding. PREOPERATIVE DIAGNOSIS: POSTOPERATIVE DIAGNOSIS: PROCEDURE PERFORMED: Upper endoscopy with banding of esophageal varices. ESTIMATED BLOOD LOSS: COMPLICATIONS: ANESTHESIA: ASSISTANTS: SPECIMENS: MEDICATIONS: Monitored anesthesia care. DESCRIPTION OF PROCEDURE: The history and physical were performed. The risks and benefits of the procedure were explained to the patient. Informed consent was obtained. The patient was placed in the left lateral decubitus position. The Olympus video gastroscope was introduced into the esophagus, stomach, and duodenum. Examination was performed. The scope was removed. She tolerated the procedure well and transferred to recovery in stable condition. FINDINGS: Esophagus: There were 3 chains of grade 1 varices extending from the EG junction up to about 20 cm. The EG junction was located at 34 cm. Stomach: The stomach showed changes of portal hypertensive gastropathy. No definite gastric varices were identified on retroflexed view. Duodenum: The bulb and second portion were normal. There was some minor oozing from the varices prior to banding. The scope was removed from the patient and the banding attachment was applied. A total of 4 bands were placed on varices just above the EG junction with excellent hemostasis at the termination of the procedure. IMPRESSION: Esophageal varices, status post banding. RECOMMENDATION: Repeat EGD in 6-8 weeks for reassessment of varices and further banding if necessary. MD HELEN Escalante/ELIZABETH / [id number]
== END 2022-04-12 14:05 | disposition home or self-care (01) ==
PROVIDERS: Nurse Practitioner; Visit Provider Internal Medicine Gastroenterology
PROC: 0DJ08ZZ Inspection of Upper Intestinal Tract, Via Natural or Artificial Opening Endoscopic (ICD-10-PCS; CPT 43235; principal; 2022-04-12 13:10)
DX: I85.00 Esophageal varices without bleeding (principal); K70.31 Alcoholic cirrhosis of liver with ascites; F17.210 Nicotine dependence, cigarettes, uncomplicated; Z79.899 Other long term (current) drug therapy
CPT/HCPCS: 43244; 36415; 80053; 85027; 85610; J2250

== ENCOUNTER 2022-04-12 14:51 | Inpatient (IN) | payer MEDICARE, OTHER, SELFPAY ==
[2022-04-12] VITALS (8 sets, daily range): BP systolic 103–149; BP diastolic 58–72; PULSE 91–107; RESP 16–22; TEMP 36.5–36.9; O2SAT 10–95; BMI 23.0; BMI 28.9
--- NOTE | ~2022-04-12 | CT_ITS ---
EXAMINATION: CT CHEST, ABDOMEN AND PELVIS WITHOUT CONTRAST CLINICAL INFORMATION: Reason for Exam post upper endo, r/o perforation COMPARISON: No pertinent prior studies are available for comparison. TECHNIQUE: Multidetector volumetric imaging was performed from the thoracic inlet through the pubic symphysis without IV contrast. Sagittal and coronal reformatted images were obtained on the technologist's workstation. This CT examination was performed using dose optimization techniques as appropriate, variously including the following: *Automated exposure control *Adjustment of mA and/or kV according to patient size (this includes techniques or standardized protocols for targeted exams where dose is matched to indication/reason for exam; i.e. extremities or head) *Use of iterative reconstruction technique DLP: 173 mGy-cm FINDINGS: CHEST: Lung: Multiple areas of patchy infiltrate are present in the left upper lobe as well as left lower lobe with some areas of more dense consolidation. Scattered areas of groundglass opacity are seen peripherally in the right upper lobe as well as left upper lobe with some similar changes present in the right lower lobe. All of these findings are new when compared to the 02/23/[address]22 CT scan. Mediastinum: Marked atherosclerotic changes present in the aorta and great vessels without aneurysm. Severe coronary calcifications are seen. No mediastinal emphysema is present. No mediastinal or hilar lymphadenopathy is detected. Pericardium/Pleura: No significant effusion. No pleural mass or thickening. Chest Wall/Axilla: Mild anasarca. ABDOMEN/PELVIS: Peritoneal Space: Large volume ascites is present, increased in amount when compared to the prior study from 02/23/2022 no omental cake or peritoneal masses are seen. No free intraperitoneal air to suggest rupture of a viscus. Liver, Gallbladder, Biliary Tree: The liver is nodular in appearance suggesting cirrhosis. No focal hepatic lesion or biliary ductal dilatation is present. The gallbladder is once again seen to contain small layering gallstones without evidence of wall thickening, or obvious pericholecystic inflammatory changes. Pancreas: Unremarkable Spleen: Unremarkable Adrenal Glands: Unremarkable Kidneys and Ureters: The kidneys are normal in size, shape, and attenuation. No hydronephrosis, hydroureter, or calculi seen. No perinephric stranding. Bladder: Unremarkable. Previously seen Oneill catheter has been removed. Gastrointestinal Tract: Diverticular changes are present in the colon without diverticulitis. The small and large bowel are otherwise unremarkable. The appendix is unremarkable. Abdominal Wall: There is mild anasarca. No significant hernia is seen. Lymph Nodes: No lymphadenopathy. Vascular: Severe atherosclerotic changes are present in the aorta and iliofemoral vessels without aneurysms.. The IVC appears unremarkable. PELVIC VISCERA: The uterus is not seen. An abnormal adnexal mass is not identified OSSEUS STRUCTURES: Mild degenerative changes are noted in the spine. No bony destructive lesions are seen. CT/CT abdomen pelvis wo con IMPRESSION: 1. No evidence of bowel rupture status post endoscopy. 2. New multifocal pulmonary infiltrates, some groundglass, some more consolidative suggesting pneumonia. Some of the groundglass changes are typically seen with Covid. 3. Increasing large volume ascites with cirrhotic appearing liver. 4. Other incidental findings described above including cholelithiasis severe atherosclerotic changes and anasarca Fleischner guidelines were followed.
--- NOTE | ~2022-04-12 | XR_ITS ---
EXAMINATION: XR CHEST CLINICAL INFORMATION: Shortness of breath COMPARISON: None TECHNIQUE: Frontal view of the chest was obtained. FINDINGS: The cardiac and mediastinal contours are normal. The lung volumes are low. There is left perihilar and right base atelectasis/infiltrates. There is no pleural effusion. There are degenerative changes of the spine. XR/XR chest 1V IMPRESSION: Low lung volumes and bilateral atelectasis/infiltrates.
--- NOTE | ~2022-04-12 | US_ITS ---
EXAMINATION: US VENOUS ULTRASOUND WITH DOPPLER LOWER EXTREMITY, BILATERAL CLINICAL INFORMATION: Pulmonary embolism COMPARISON: CT PE 04/12/2022 TECHNIQUE: Ultrasound of the deep veins is performed from the hip to the calf with compression sonography and color and pulse Doppler assessment. Spectral analysis with color-flow imaging is performed. FINDINGS: RIGHT: There is nonocclusive deep venous thrombus in the right popliteal vein. No extension centrally into the femoral or common femoral veins. The peroneal veins were not identified. There is no significant popliteal fossa cyst. Mild subcutaneous edema in the calf. LEFT: There is normal venous compression and respiratory variation and augmented flow. The visualized common femoral vein, superficial femoral vein, profunda femoral vein, popliteal vein, and the trifurcation region shows no evidence of deep venous thrombosis. There is no significant popliteal fossa cyst. Mild subcutaneous edema in the calf. US/US venous duplex LE BI IMPRESSION: Nonocclusive deep venous thrombus in the right popliteal vein. No extension centrally into the femoral or common femoral vein. No evidence of deep venous arms in the left lower extremity however the bilateral peroneal veins were not identified. Mild subcutaneous edema in the bilateral calves.
--- NOTE | ~2022-04-12 | US_ITS ---
EXAMINATION: ULTRASOUND-GUIDED PARACENTESIS WITH IMAGING CLINICAL INFORMATION: Ascites COMPARISON: None TECHNIQUE: Procedure and benefits including bleeding, infection and low blood pressure were discussed with the patient and informed consent was obtained. The right lower quadrant was prepped and draped in usual sterile fashion. The skin and soft tissues were anesthetized with 1% lidocaine plain. Using ultrasound guidance and a 5 Greenlandic rapid centesis catheter, access to the ascitic fluid was obtained. 8.8 L of clear bright yellow fluid was removed. Specimen was sent for diagnostic studies as requested by the ordering physician. There is no complication. FINDINGS: There is a large amount of ascites. US/US paracentesis abd w/image IMPRESSION: Ultrasound-guided paracentesis.
--- NOTE | ~2022-04-12 | XR_ITS ---
EXAMINATION: XR CHEST CLINICAL INFORMATION: Hypoxia. COMPARISON: 04/12/2022 chest radiographs. TECHNIQUE: Frontal view of the chest was obtained. FINDINGS: Kyphotic positioning and low lung volumes limit evaluation. Diffuse bilateral patchy opacities are seen. The heart and mediastinal structures are unremarkable. XR/XR chest 1V IMPRESSION: Diffuse bilateral patchy opacities suggesting an infectious/inflammatory process. A cardiogenic etiology cannot be excluded. Correlate clinically.
--- NOTE | ~2022-04-12 | CT_ITS ---
EXAMINATION: CT ANGIOGRAM OF THE CHEST WITH AND WITHOUT CONTRAST (CT PULMONARY ANGIOGRAM FOR PE) CLINICAL INFORMATION: Reason for Exam elevated D dimer, SOB COMPARISON: CT scan of the chest performed 1 hour prior TECHNIQUE: Prior to contrast administration, noncontrast localization images were obtained. Subsequently, multidetector volumetric imaging was performed from the thoracic inlet to below the diaphragms following the administration of 75 mL Omnipaque 350 intravenous contrast. No contrast reaction reported Sagittal, coronal, and MIP oblique sagittal reformatted images were obtained on the CT workstation, uploaded to PACS, and reviewed. This CT examination was performed using dose optimization techniques as appropriate, variously including the following: *Automated exposure control *Adjustment of mA and/or kV according to patient size (this includes techniques or standardized protocols for targeted exams where dose is matched to indication/reason for exam; i.e. extremities or head) *Use of iterative reconstruction technique Total exam dose-length product 218 mGy-cm FINDINGS: QUALITY OF STUDY/CONTRAST BOLUS: Satisfactory. PULMONARY ARTERIES: Left upper lobe and left lower lobe pulmonary emboli are present. A small right upper lobe embolus is seen (8:210). THORACIC AORTA: No aneurysm or dissection. LUNG: There is been no interval change when compared to the study from one hour ago demonstrating multifocal infiltrates. PLEURA: No pleural effusion or pneumothorax. MEDIASTINUM: No interval change since the study of one hour ago. No evidence of septal bowing or right heart strain. CHEST WALL/AXILLA: No axillary or internal mammary lymphadenopathy. OSSEOUS STRUCTURES: No acute or suspicious osseous abnormality. UPPER ABDOMEN: See abdominal CT report performed one hour ago. No reflux of contrast into the hepatic veins to suggest elevated right heart pressures. CT/CT angio chest PE protocol IMPRESSION: Small number of acute pulmonary emboli in the right upper lobe, left upper lobe and left lower lobe. No evidence of right heart strain. Multifocal pulmonary infiltrates as described in the CT report one hour ago. This critical result was discussed with ANTONIO Baldwin at 6:16pm on the day of the exam and it was ascertained that the content and urgency of the report was understood at the time of direct communication. VTE: positive
--- NOTE | ~2022-04-12 | XR_ITS ---
EXAMINATION: XR CHEST CLINICAL INFORMATION: Hypoxia. COMPARISON: Chest 04/15/2022 TECHNIQUE: Frontal view of the chest was obtained. FINDINGS: The lungs are hypoexpanded with diffuse patchy opacity bilaterally unchanged. There is minimal bilateral basilar pleural thickening or small effusions. Heart size and pulmonary vascularity is normal. No gross bony abnormality. XR/XR chest 1V IMPRESSION: Stable bilateral patchy opacities suggestive of inflammatory/infectious etiology.
--- NOTE | 2022-04-12 15:03 | ED.GENADULT ---
HPI - General Adult General Chief complaint: Dyspnea Stated complaint: SOB Time Seen by Provider: 04/12/22 15:03 Source: patient Mode of arrival: other (hospital bed) Limitations: no limitations History of Present Illness HPI narrative: Patient is a 66 year old female presenting to the emergency department today with shortness of breath. Patient states that she had an upper GI scope performed today and when she woke up, she felt like she was having an increased difficulty breathing. Patient states that she does not have COPD, but does smoke. Patient states she was getting the scope due to some esophageal bleeding. Patient denies any dizziness, lightheadedness, abdominal pain, nausea, vomiting, fever, chills, blurry vision, double vision, loss of vision, chest pain, back pain, night sweats, pain with urination, increased urinary frequency, increased urinary urgency, blood in her urine or stool, syncope or a near syncopal episode, recent trauma or falls, bowel incontinence, bladder incontinence, bowel retention, bladder retention, or any other complaints at this time. Onset (ago): minute(s) Severity: moderate Severity scale (1-10): 5 Relieving factors: none Exacerbating factors: none Treatments prior to arrival: none Related Data Previous Rx's Medication Instructions Recorded omeprazole 20 mg capsule,delayed 20 mg PO BID@0630,3360 #60 cap 02/27/22 release Allergies Allergy/AdvReac Type Severity Reaction Status Date / Time No Known Allergies Allergy Verified 02/14/22 10:38 Review of Systems Constitutional: Constitutional: Reports no additional constitutional complaints, Denies chills, Denies fever(s) and Denies night sweats Eyes: Eyes: Reports no additional eye complaints, Denies blurry vision, Denies change in vision, Denies diplopia, Denies eye discharge, Denies loss of vision and Denies eye pain ENT: Denies dizziness Cardiovascular: Cardiovascular: Reports no additional cardiovascular complaints, Denies chest pain, Denies lightheadedness, Denies Loss of Consciousness and Reports dyspnea Respiratory: Respiratory: Reports no additional respiratory complaints and Reports dyspnea Gastrointestinal: Gastrointestinal: Reports no additional gastrointestinal complaints, Denies abdominal pain, Denies melena, Denies hematochezia, Denies change in bowel habits and Denies change in stool character Genitourinary: Genitourinary: Denies hematuria, Denies urinary frequency, Denies dysuria, Denies urinary incontinence, Denies urinary hesitancy and Denies urinary urgency Musculoskeletal: Musculoskeletal: Reports no additional musculoskeletal complaints, Denies numbness and Denies tingling Neurologic: Denies dizziness, Denies loss of vision, Denies numbness and Denies tingling Psychiatric: Psychiatric: Reports no additional psychiatric complaints Endocrine: Endocrine: Reports no additional endocrine complaints Hematologic/Lymphatic: Hematologic/Lymphatic: Reports no additional hematologic/lymphatic complaints Allergic/Immunologic: Allergic/Immunologic: Reports no additional allergic/immunologic complaints PMFSH Past Medical History Attestation statement: The following information was validated with the patient. Source: old records reviewed Medical History Erosive esophagitis Esophageal varices Liver cirrhosis No known health problems Social History Social History Household Members: Spouse Household Members Other:: 1 Housing: House Do you presently have visiting nurse or other home services: No Alcohol intake: former Patient Tobacco Use Status: Current everyday Tobacco user Tobacco use type: Cigarette Cigarette Packs Per Day: 2.5 Cigarettes Per Day: 50.0 Second Hand Smoke Exposure: No Advance Directives: No Advance Directives Information Provided: No service: No Physical Exam ED Vital Signs: Vital Signs - 24 hr 04/12/22 16:01 04/12/22 17:57 04/12/22 18:41 Temperature Pulse Rate 91 104 H Respiratory Rate 22 H 21 H Blood Pressure 103/58 L 149/72 H Pulse Oximetry 95 93 93 04/12/22 18:56 04/12/22 20:54 04/12/22 22:44 Temperature 97.7 F 97.8 F Pulse Rate 95 106 H 102 H Respiratory Rate 16 16 20 Blood Pressure 132/72 123/63 115/67 Pulse Oximetry 93 94 04/12/22 22:55 Temperature 98.4 F Pulse Rate 107 H Respiratory Rate 20 Blood Pressure 115/67 Pulse Oximetry 10 L BMI result Body Mass Index 28.9 Const General: cooperative, no acute distress, alert and awake Nutritional Appearance: well nourished Orientation/consciousness: patient oriented x3 Limitations: no limitations HENMT Head: Yes normal to inspection and Yes atraumatic Ears: hearing grossly normal bilaterally and external ears normal General nose exam: Normal external nose present, no nasal discharge noted and no epistaxis Face and sinus: Yes normal facial exam, No abrasion and No laceration Mouth: Normal oral and palatal mucosa present, no drooling and no muffled voice Eyes General: appearance normal, both eyes and all related structures Periorbital: periorbital findings normal Eyelids: Yes eyelids normal Conjunctivae: conjunctivae normal Pupils: Equal, round and reactive pupils present EOM: EOMs intact bilaterally Neck Neck: Yes normal visual inspection, Yes full ROM and Yes no lymphadenopathy Chest Chest palpation & inspection: normal inspection of the chest Resp Effort & Inspection: able to speak in complete sentences Auscultation: rales Cardio Rate: tachycardic GI Inspection: Yes normal to inspection Neuro General: patient oriented x3 and moves all extremities Cranial nerves: Yes Equal, round and reactive pupils present Cognition (Neuro): normal cognition Motor exam (neuro): 5/5 motor strength present throughout Sensory Exam: Normal double simultaneous stimulation for sensation Coordination: [id number] test normal Extrem General: Yes normal to inspection, Yes full ROM and Yes capillary refill normal Psych Appearance: grossly normal Mental Status: mental status grossly normal Affect: normal affect Attitude: cooperative Thought process: Normal thought process present Thought content: Normal thought content present Insight: Good insight present (Psych) Medical Decision Making MDM Narrative Medical decision making narrative: Patient is a 66 year old female presenting to the emergency department today with increased shortness of breath after an elective upper endoscope. Patient's physical exam showed hypoxia at 86% on room air, patient was at 95% on oxymask. Patient had rales throughout her lung sharma. Patient's blood work showed an elevated white blood cell count at 15 however, the patient has a history of elevated white blood cell counts at 13.5. Patient had an elevated lactic acid at 5.1. Patient's D dime was significantly elevated, greater than 7,000. Patient's sodium was decreased at 132. Patient's rapid COVID-19 and Influenza tests were negative. Patient's EKG was unremarkable. Patient's chest x-ray showed low lung volumes and bilateral atelectasis/infiltrates. Patient's chest CT showed new multifocal pulmonary infiltrates, some groundglass, some more consolidation suggesting pneumonia. Patient's CT abdomen showed increasing large volume ascites with cirrhotic appearing liver and cholelithiasis. Patient's chest CTA showed a small number of acute pulmonary emboli in the right upper lobe, left upper lobe, and left lower lobe with no evidence of heart strain. I spoke to the GI provider retail seasonal specialist, Dr. Leger, who recommended the patient be started on the heparin drip for the PEs and watched. Sepsis was added to my differential at 1855, at which point blood cultures, antibiotics, and lactic acid was ordered. It's important to note I do not believe this patient to be septic. I believe her clinical picture is more consistent with hypoxia secondary to PEs. Patient received IV heparin and Zosyn. Patient received maintenance fluid and not a 30mg/kg bolus due to the patient having extensive rales, due to concern for fluid overload, the fluid bolus was withheld. I spoke to Dr. Tannre who agreed to admission. I explained my physical exam findings as well as all test results to the patient. I answered all questions asked by the patient. Patient verbalized agreement and understanding with this treatment plan and admission. Differential Diagnosis Differential Diagnosis: pneumonia, COVID-19, pulmonary embolus Medical Records Medical records reviewed: Yes I reviewed the patient's medical records. Lab Data Lab results reviewed: Yes I reviewed the patient's lab results. Result diagrams: 04/12/22 16:26 04/12/22 16:27 Labs: Lab Results 04/12/22 04/12/22 04/12/22 Range/Units 16:26 16:26 16:26 WBC 15.0 H (4.8-10.8) X10*3/uL RBC 4.00 L (4.20-5.50) X10*6/uL Hgb 12.9 (12.0-16.0) g/dl Hct 38.8 (37.0-47.0) % MCV 97.0 (80.0-98.0) fL MCH 32.3 (27.0-33.0) pg MCHC 33.2 (31.0-35.0) g/dl RDW 15.0 (11.0-16.0) % Plt Count 124 L (160-400) X10*3/uL MPV 9.8 (9.4-12.3) fL Immature Gran % (Auto) 0.9 H (0.0-0.4) % Neut % (Auto) 82.2 H (45-73) % Lymph % (Auto) 8.7 L (20-40) % [place] % (Auto) 7.8 (2-11) % Eos % (Auto) 0.2 (0-4) % Baso % (Auto) 0.2 (0-2) % Lymph # (Auto) 1.3 (1.2-4.9) X10*3/uL [place] # (Auto) 1.2 (0.1-1.2) X10*3/uL Eos # (Auto) 0.0 (0.0-0.4) X10*3/uL Baso # (Auto) 0.0 (0.0-0.2) X10*3/uL Abs Immat Gran (auto) 0.13 H (0.00-0.03) X10*3/uL Absolute Neuts (auto) 12.3 H (2.0-8.3) x10*3/uL Absolute Nucleated RBC 0.000 (0.0-0.012) X10*3/uL Nucleated RBC % (auto) 0.0 (0.0-0.2) /100WBC PT (9.9-13.0) SEC INR (0.9-1.1) APTT (24.1-38.0) SEC D-Dimer High Sensitivty 7053 NG/ML VBG pH (7.32-7.43) VBG pCO2 mmHg VBG pO2 mmHg VBG HCO3 (22-26) mmol/L VBG O2 Saturation % VBG Base Excess mmol/L Sodium (135-145) mmol/L Potassium (3.3-5.1) mmol/L Chloride (96-108) mmol/L Carbon Dioxide (22-29) mmol/L Anion Gap (12-20) BUN (9-16) mg/dL Creatinine (0.5-1.4) mg/dL Estim Creat Clear Calc Estimated GFR Random Glucose (60-115) mg/dL Lactic Acid (0.5-2.0) mmol/L Lactic Acid F/U @ 2Hr (0.5-2.0) mmol/L Calcium (8.4-10.2) mg/dL Magnesium (1.6-2.6) mg/dL Total Bilirubin (0.0-1.0) mg/dL AST (5-31) U/L ALT (0-31) U/L Alkaline Phosphatase (39-117) U/L Ammonia (13-55) umol/L Troponin I High Sens 20.5 H (<3.5-17.0) ng/L B-Natriuretic Peptide 65 (<100) pg/mL Total Protein (6.5-8.0) g/dL Albumin (3.5-5.0) g/dL COVID-19 (LISA) (Negative) COVID-19 Clin Com Influenza Type A (RANCHO) (Negative) Influenza Type B (RANCHO) (Negative) Influenza A & B Note 04/12/22 04/12/22 04/12/22 Range/Units 16:27 16:27 16:27 WBC (4.8-10.8) X10*3/uL RBC (4.20-5.50) X10*6/uL Hgb (12.0-16.0) g/dl Hct (37.0-47.0) % MCV (80.0-98.0) fL MCH (27.0-33.0) pg MCHC (31.0-35.0) g/dl RDW (11.0-16.0) % Plt Count (160-400) X10*3/uL MPV (9.4-12.3) fL Immature Gran % (Auto) (0.0-0.4) % Neut % (Auto) (45-73) % Lymph % (Auto) (20-40) % [place] % (Auto) (2-11) % Eos % (Auto) (0-4) % Baso % (Auto) (0-2) % Lymph # (Auto) (1.2-4.9) X10*3/uL [place] # (Auto) (0.1-1.2) X10*3/uL Eos # (Auto) (0.0-0.4) X10*3/uL Baso # (Auto) (0.0-0.2) X10*3/uL Abs Immat Gran (auto) (0.00-0.03) X10*3/uL Absolute Neuts (auto) (2.0-8.3) x10*3/uL Absolute Nucleated RBC (0.0-0.012) X10*3/uL Nucleated RBC % (auto) (0.0-0.2) /100WBC PT (9.9-13.0) SEC INR (0.9-1.1) APTT (24.1-38.0) SEC D-Dimer High Sensitivty NG/ML VBG pH (7.32-7.43) VBG pCO2 mmHg VBG pO2 mmHg VBG HCO3 (22-26) mmol/L VBG O2 Saturation % VBG Base Excess mmol/L Sodium 132 L (135-145) mmol/L Potassium 4.5 (3.3-5.1) mmol/L Chloride 101 (96-108) mmol/L Carbon Dioxide 22 (22-29) mmol/L Anion Gap 14 (12-20) BUN 24 H (9-16) mg/dL Creatinine 1.00 (0.5-1.4) mg/dL Estim Creat Clear Calc 45.7 Estimated GFR 55 Random Glucose 115 (60-115) mg/dL Lactic Acid (0.5-2.0) mmol/L Lactic Acid F/U @ 2Hr (0.5-2.0) mmol/L Calcium 8.5 (8.4-10.2) mg/dL Magnesium 2.1 (1.6-2.6) mg/dL Total Bilirubin 2.3 H (0.0-1.0) mg/dL AST 56 H (5-31) U/L ALT 35 H (0-31) U/L Alkaline Phosphatase 124 H (39-117) U/L Ammonia (13-55) umol/L Troponin I High Sens (<3.5-17.0) ng/L B-Natriuretic Peptide (<100) pg/mL Total Protein 6.5 (6.5-8.0) g/dL Albumin 2.4 L (3.5-5.0) g/dL COVID-19 (LISA) Negative (Negative) COVID-19 Clin Com See Note Influenza Type A (RANCHO) Negative (Negative) Influenza Type B (RANCHO) Negative (Negative) Influenza A & B Note See Note 04/12/22 04/12/22 04/12/22 Range/Units 16:32 18:50 19:54 WBC (4.8-10.8) X10*3/uL RBC (4.20-5.50) X10*6/uL Hgb (12.0-16.0) g/dl Hct (37.0-47.0) % MCV (80.0-98.0) fL MCH (27.0-33.0) pg MCHC (31.0-35.0) g/dl RDW (11.0-16.0) % Plt Count (160-400) X10*3/uL MPV (9.4-12.3) fL Immature Gran % (Auto) (0.0-0.4) % Neut % (Auto) (45-73) % Lymph % (Auto) (20-40) % [place] % (Auto) (2-11) % Eos % (Auto) (0-4) % Baso % (Auto) (0-2) % Lymph # (Auto) (1.2-4.9) X10*3/uL [place] # (Auto) (0.1-1.2) X10*3/uL Eos # (Auto) (0.0-0.4) X10*3/uL Baso # (Auto) (0.0-0.2) X10*3/uL Abs Immat Gran (auto) (0.00-0.03) X10*3/uL Absolute Neuts (auto) (2.0-8.3) x10*3/uL Absolute Nucleated RBC (0.0-0.012) X10*3/uL Nucleated RBC % (auto) (0.0-0.2) /100WBC PT 15.6 H (9.9-13.0) SEC INR 1.4 H (0.9-1.1) APTT 30.8 (24.1-38.0) SEC D-Dimer High Sensitivty NG/ML VBG pH 7.34 (7.32-7.43) VBG pCO2 40 mmHg VBG pO2 69 mmHg VBG HCO3 22 (22-26) mmol/L VBG O2 Saturation 86.0 % VBG Base Excess -3.5 mmol/L Sodium (135-145) mmol/L Potassium (3.3-5.1) mmol/L Chloride (96-108) mmol/L Carbon Dioxide (22-29) mmol/L Anion Gap (12-20) BUN (9-16) mg/dL Creatinine (0.5-1.4) mg/dL Estim Creat Clear Calc Estimated GFR Random Glucose (60-115) mg/dL Lactic Acid 5.1 H* (0.5-2.0) mmol/L Lactic Acid F/U @ 2Hr (0.5-2.0) mmol/L Calcium (8.4-10.2) mg/dL Magnesium (1.6-2.6) mg/dL Total Bilirubin (0.0-1.0) mg/dL AST (5-31) U/L ALT (0-31) U/L Alkaline Phosphatase (39-117) U/L Ammonia (13-55) umol/L Troponin I High Sens (<3.5-17.0) ng/L B-Natriuretic Peptide (<100) pg/mL Total Protein (6.5-8.0) g/dL Albumin (3.5-5.0) g/dL COVID-19 (LISA) (Negative) COVID-19 Clin Com Influenza Type A (RANCHO) (Negative) Influenza Type B (RANCHO) (Negative) Influenza A & B Note 04/12/22 04/12/22 04/12/22 Range/Units 22:44 22:44 22:44 WBC (4.8-10.8) X10*3/uL RBC (4.20-5.50) X10*6/uL Hgb (12.0-16.0) g/dl Hct (37.0-47.0) % MCV (80.0-98.0) fL MCH (27.0-33.0) pg MCHC (31.0-35.0) g/dl RDW (11.0-16.0) % Plt Count (160-400) X10*3/uL MPV (9.4-12.3) fL Immature Gran % (Auto) (0.0-0.4) % Neut % (Auto) (45-73) % Lymph % (Auto) (20-40) % [place] % (Auto) (2-11) % Eos % (Auto) (0-4) % Baso % (Auto) (0-2) % Lymph # (Auto) (1.2-4.9) X10*3/uL [place] # (Auto) (0.1-1.2) X10*3/uL Eos # (Auto) (0.0-0.4) X10*3/uL Baso # (Auto) (0.0-0.2) X10*3/uL Abs Immat Gran (auto) (0.00-0.03) X10*3/uL Absolute Neuts (auto) (2.0-8.3) x10*3/uL Absolute Nucleated RBC (0.0-0.012) X10*3/uL Nucleated RBC % (auto) (0.0-0.2) /100WBC PT (9.9-13.0) SEC INR (0.9-1.1) APTT (24.1-38.0) SEC D-Dimer High Sensitivty NG/ML VBG pH (7.32-7.43) VBG pCO2 mmHg VBG pO2 mmHg VBG HCO3 (22-26) mmol/L VBG O2 Saturation % VBG Base Excess mmol/L Sodium (135-145) mmol/L Potassium (3.3-5.1) mmol/L Chloride (96-108) mmol/L Carbon Dioxide (22-29) mmol/L Anion Gap (12-20) BUN (9-16) mg/dL Creatinine (0.5-1.4) mg/dL Estim Creat Clear Calc Estimated GFR Random Glucose (60-115) mg/dL Lactic Acid (0.5-2.0) mmol/L Lactic Acid F/U @ 2Hr 6.8 H* (0.5-2.0) mmol/L Calcium (8.4-10.2) mg/dL Magnesium (1.6-2.6) mg/dL Total Bilirubin (0.0-1.0) mg/dL AST (5-31) U/L ALT (0-31) U/L Alkaline Phosphatase (39-117) U/L Ammonia 60 H (13-55) umol/L Troponin I High Sens 33.0 H D (<3.5-17.0) ng/L B-Natriuretic Peptide (<100) pg/mL Total Protein (6.5-8.0) g/dL Albumin (3.5-5.0) g/dL COVID-19 (LISA) (Negative) COVID-19 Clin Com Influenza Type A (RANCHO) (Negative) Influenza Type B (RANCHO) (Negative) Influenza A & B Note Imaging Data CT scan - abdomen and chest: Attestation: I personally reviewed and interpreted this imaging study as follows: Radiologist's impression: EXAMINATION: CT CHEST, ABDOMEN AND PELVIS WITHOUT CONTRAST CLINICAL INFORMATION: Reason for Exam post upper endo, r/o perforation COMPARISON: No pertinent prior studies are available for comparison. TECHNIQUE: Multidetector volumetric imaging was performed from the thoracic inlet through the pubic symphysis without IV contrast. Sagittal and coronal reformatted images were obtained on the technologist's workstation. This CT examination was performed using dose optimization techniques as appropriate, variously including the following: *Automated exposure control *Adjustment of mA and/or kV according to patient size (this includes techniques or standardized protocols for targeted exams where dose is matched to indication/reason for exam; i.e. extremities or head) *Use of iterative reconstruction technique DLP: 173 mGy-cm FINDINGS: CHEST: Lung: Multiple areas of patchy infiltrate are present in the left upper lobe as well as left lower lobe with some areas of more dense consolidation. Scattered areas of groundglass opacity are seen peripherally in the right upper lobe as well as left upper lobe with some similar changes present in the right lower lobe. All of these findings are new when compared to the 02/23/2022 CT scan. Mediastinum: Marked atherosclerotic changes present in the aorta and great vessels without aneurysm. Severe coronary calcifications are seen. No mediastinal emphysema is present. No mediastinal or hilar lymphadenopathy is detected. Pericardium/Pleura: No significant effusion. No pleural mass or thickening. Chest Wall/Axilla: Mild anasarca. ABDOMEN/PELVIS: Peritoneal Space: Large volume ascites is present, increased in amount when compared to the prior study from 02/23/2022 no omental cake or peritoneal masses are seen. No free intraperitoneal air to suggest rupture of a viscus. Liver, Gallbladder, Biliary Tree: The liver is nodular in appearance suggesting cirrhosis.? No focal hepatic lesion or biliary ductal dilatation is present. The gallbladder is once again seen to contain small layering gallstones without evidence of? wall thickening, or obvious pericholecystic inflammatory changes. Pancreas: Unremarkable Spleen: Unremarkable Adrenal Glands: Unremarkable Kidneys and Ureters: The kidneys are normal in size, shape, and attenuation. No hydronephrosis, hydroureter, or calculi seen. No perinephric stranding. Bladder: Unremarkable. Previously seen Oneill catheter has been removed. Gastrointestinal Tract: Diverticular changes are present in the colon without diverticulitis. The small and large bowel are otherwise unremarkable. The appendix is unremarkable. Abdominal Wall: There is mild anasarca. No significant hernia is seen. Lymph Nodes: No lymphadenopathy. Vascular: Severe atherosclerotic changes are present in the aorta and iliofemoral vessels without aneurysms.. The IVC appears unremarkable. PELVIC VISCERA: The uterus is not seen. An abnormal adnexal mass is not identified OSSEUS STRUCTURES: Mild degenerative changes are noted in the spine. No bony destructive lesions are seen. CT/CT abdomen pelvis wo con IMPRESSION: 1.? No evidence of bowel rupture status post endoscopy. 2.? New multifocal pulmonary infiltrates, some groundglass, some more consolidative suggesting pneumonia. Some of the groundglass changes are typically seen with Covid. 3.? Increasing large volume ascites with cirrhotic appearing liver. 4.? Other incidental findings described above including cholelithiasis severe atherosclerotic changes and anasarca ? Fleischner guidelines were followed. Dictated By: Rafy Crowely MD Signed By: Electronically signed by Rafy Crowley MD 04/12/22 1810 Chest x-ray: Attestation: I personally reviewed and interpreted this imaging study as follows: My impression: Acute bilateral infiltrates. Radiologist's impression: EXAMINATION: XR CHEST CLINICAL INFORMATION: Shortness of breath COMPARISON: None TECHNIQUE: Frontal view of the chest was obtained. FINDINGS: The cardiac and mediastinal contours are normal. The lung volumes are low. There is left perihilar and right base atelectasis/infiltrates. There is no pleural effusion. There are degenerative changes of the spine. XR/XR chest 1V IMPRESSION: Low lung volumes and bilateral atelectasis/infiltrates. Dictated By: Holly Partida MD Signed By: Electronically signed by Holly Partida MD 04/12/[address] Chest PE: Attestation: I personally reviewed and interpreted this imaging study as follows: Radiologist's impression: EXAMINATION: CT ANGIOGRAM OF THE CHEST WITH AND WITHOUT CONTRAST (CT PULMONARY ANGIOGRAM FOR PE) CLINICAL INFORMATION: Reason for Exam elevated D dimer, SOB COMPARISON: CT scan of the chest performed 1 hour prior? TECHNIQUE: Prior to contrast administration, noncontrast localization images were obtained. ? Subsequently, multidetector volumetric imaging was performed from the thoracic inlet to below the diaphragms following the administration of 75 mL Omnipaque 350 intravenous contrast. No contrast reaction reported Sagittal, coronal, and MIP oblique sagittal reformatted images were obtained on the CT workstation, uploaded to PACS, and reviewed. This CT examination was performed using dose optimization techniques as appropriate, variously including the following: *Automated exposure control *Adjustment of mA and/or kV according to patient size (this includes techniques or standardized protocols for targeted exams where dose is matched to indication/reason for exam; i.e. extremities or head) *Use of iterative reconstruction technique Total exam dose-length product 218 mGy-cm FINDINGS: QUALITY OF STUDY/CONTRAST BOLUS: Satisfactory. PULMONARY ARTERIES: Left upper lobe and left lower lobe pulmonary emboli are present. A small right upper lobe embolus is seen (8:210).? THORACIC AORTA: No aneurysm or dissection. LUNG: There is been no interval change when compared to the study from one hour ago demonstrating multifocal infiltrates. PLEURA: No pleural effusion or pneumothorax. MEDIASTINUM: No interval change since the study of one hour ago.? No evidence of septal bowing or right heart strain. CHEST WALL/AXILLA: No axillary or internal mammary lymphadenopathy. OSSEOUS STRUCTURES: No acute or suspicious osseous abnormality.? UPPER ABDOMEN: See abdominal CT report performed one hour ago.? No reflux of contrast into the hepatic veins to suggest elevated right heart pressures. CT/CT angio chest PE protocol IMPRESSION: Small number of acute pulmonary emboli in the right upper lobe, left upper lobe and left lower lobe. No evidence of right heart strain. ? Multifocal pulmonary infiltrates as described in the CT report one hour ago. ? This critical result was discussed with ANTONIO Baldwin at 6:16pm on the day of the exam and it was ascertained that the content and urgency of the report was understood at the time of direct communication. VTE: positive Dictated By: Rafy Crowley MD Signed By: Electronically signed by Rafy Crowley MD 04/12/22 2916 ECG Data Attestation: I personally reviewed and interpreted this ECG as follows: Prior ECG tracings: available for review Interpretation: Vent. Rate: 092 BPM ? ? Atrial Rate: 092 BPM P-R Int: 132 ms? QRS Dur: 112 ms QT Int: 424 ms ? ? ? P-R-T Axes: 060 067 -10 degrees QTc Int: 524 ms ? Artifact in tracing Normal sinus rhythm Low voltage QRS Incomplete right bundle branch block Nonspecific T wave abnormality Prolonged QT Abnormal ECG When compared with ECG of 23-FEB-2022 08:53, ST less depressed in Anterior leads ? Electronically Signed By:TANNER VEGA Dictated By: Tanner Vega MD Signed By: Electronically signed by Tanner Vega MD 04/12/22 1944 Critical Care Time Critical Care Time Critical Care Time: Yes Total Critical Care Time: 45 Attestation: I spent 45 minutes of Critical Care Time with this patient. This does not include time spent on separately reported billable procedures. Discharge Plan Discharge Clinical Impression: PNA (pneumonia), Pulmonary emboli, Ascites, Cirrhosis, Hypoxia Patient Disposition: Admitted As Inpatient
--- NOTE | 2022-04-12 15:15 | ECG_ITS ---
Test Reason : SOB Blood Pressure : / mmHG Vent. Rate : 092 BPM Atrial Rate : 092 BPM P-R Int : 132 ms QRS Dur : 112 ms QT Int : 424 ms P-R-T Axes : 060 067 -10 degrees QTc Int : 524 ms Artifact in tracing Normal sinus rhythm Low voltage QRS Incomplete right bundle branch block Nonspecific T wave abnormality Prolonged QT Abnormal ECG When compared with ECG of 23-FEB-2022 08:53, ST less depressed in Anterior leads Referred By: Yvonne Mcduffie Electronically Signed By:HARVEY VEGA
[2022-04-12 16:34] LABS: MANUAL DIFF FLAG NO
[2022-04-12 16:39] LABS: VBG Base Excess -3.5 mmol/L; VBG HCO3 22 mmol/L (22-26); VBG pCO2 40 mmHg; VBG pH 7.34 (7.32-7.43); VBG pO2 69 mmHg
[2022-04-12 16:42] LABS: Basophils Percent Auto 0.2 % (0-2); Eosinophils Percent Auto 0.2 % (0-4); Hematocrit 38.8 % (37.0-47.0); Hemoglobin 12.9 g/dl (12.0-16.0); Imm Gran Abs Auto 0.13 X10*3/uL (0.00-0.03); Imm Gran Pct Auto 0.9 % (0.0-0.4); Lymphocytes Absolute Auto 1.3 X10*3/uL (1.2-4.9); Lymphocytes Percent Auto 8.7 % (20-40); Mean Corpuscular HGB Conc 33.2 g/dl (31.0-35.0); Mean Corpuscular Hemoglobin 32.3 pg (27.0-33.0); Mean Platelet Volume 9.8 fL (9.4-12.3); Monocytes Absolute Auto 1.2 X10*3/uL (0.1-1.2); Monocytes Percent Auto 7.8 % (2-11); Neutrophils Absolute Auto 12.3 x10*3/uL (2.0-8.3); Neutrophils Percent Auto 82.2 % (45-73); Platelet Count 124 X10*3/uL (160-400)
[2022-04-12 16:52] LABS: IDNOW Serial# 08D9AD1C; Influenza A Negative (Negative); Influenza B2 Negative (Negative)
[2022-04-12 16:53] LABS: COVID-19 Test Negative (Negative)
[2022-04-12 16:54] LABS: Alanine Aminotransferase 35 U/L (0-31); Albumin Level 2.4 g/dL (3.5-5.0); Alkaline Phosphatase 124 U/L (39-117); Anion Gap 14 (12-20); Aspartate Amino Transferase 56 U/L (5-31); Bilirubin Total 2.3 mg/dL (0.0-1.0); Blood Urea Nitrogen 24 mg/dL (9-16); Calcium 8.5 mg/dL (8.4-10.2); Carbon Dioxide 22 mmol/L (22-29); Chloride 101 mmol/L (96-108); Creatinine Clr Calc Pharmacy 45.7; Estimated Glomerular Filt Rate 55; Glucose Random 115 mg/dL (60-115); Magnesium 2.1 mg/dL (1.6-2.6); Potassium 4.5 mmol/L (3.3-5.1); Sodium 132 mmol/L (135-145); Total Protein 6.5 g/dL (6.5-8.0)
[2022-04-12 17:00] LABS: D Dimer High Sensitivity 7053 NG/ML
[2022-04-12 17:01] LABS: B Type Natriuretic Peptide 65 pg/mL (<100)
[2022-04-12 17:52] LABS: Venous Blood Gas Refer to POC result
[2022-04-12] MEDS: iohexoL 350 MG/ML 100 ML INFUS..BTL IV (17:55)
--- NOTE | 2022-04-12 18:39 | PC.NURSE ---
pt changed over from the non-rebreather to a oxy-mask, felicia canales verbal order, pt needed to moved all the way up on the oxy mask to 15L and only sating at 93%
--- NOTE | 2022-04-12 19:33 | PC.NURSE ---
Antibiotic and heparin drip started late due to labs and culture being drawn.
[2022-04-12 19:41] LABS: Lactic Acid 5.1 mmol/L (0.5-2.0)
[2022-04-12] MEDS: Piperacillin Sodium/Tazobactam 4.5 GM in 0.9 % Sodium Chloride 100 ML IV (19:56)
--- NOTE | 2022-04-12 20:03 | PC.NURSE ---
Coags needed to be redrawn d/t hemolizing in lab. Awaiting results to start heparin drip
[2022-04-12 20:05] LABS: INTERNATIONAL NORM RATIO 1.4 (0.9-1.1); Prothrombin Time 15.6 SEC (9.9-13.0)
[2022-04-12 20:08] LABS: Partial Thromboplastin Time 30.8 SEC (24.1-38.0)
[2022-04-12] MEDS: Heparin Sodium,Porcine 5,000 UNIT/ML VIAL 5900 UNIT IVPUSH (20:34)
[2022-04-12] MEDS: Heparin Sodium,Porcine/1/2NS 25,000 UNIT/250 ML IV.SOLN 10.37 UNIT IVCONT (20:40)
[2022-04-12 20:53] LABS: Reflex Lactate? Lactic Acid Added
[2022-04-12 21:39] LABS: Troponin-I High Sensitivity 20.5 ng/L (<3.5-17.0)
[2022-04-12] MEDS: 0.9 % Sodium Chloride 1,000 ML 100 ML IVCONT (22:04)
[2022-04-12 23:05] LABS: Ammonia 60 umol/L (13-55)
[2022-04-12 23:06] LABS: ~Lactic Acid-LAB USE ONLY 6.8 mmol/L (0.5-2.0)
--- NOTE | 2022-04-12 23:22 | P.HPHOSP_ITS ---
History of Present Illness Date of Service: 04/12/22 Chief Complaint: Shortness of breath 66-year-old female with a past medical history of alcoholic liver cirrhosis, erosive esophagitis, esophageal varices, history of GI bleed, presented to the hospital today with a chief complaint of shortness of breath. Patient presented to the Day surgery for possible EGD; status post EGD patient became very drowsy and hypoxic; patient was subsequently sent to the ER for further evaluation. At the time of my interview patient is alert and awake, answering my questions appropriately, on supplemental oxygen; able to speak full sentences. Patient reports that over the past few days she has been having shortness of b reath which has been gradually worsening; also reports dry cough. Denies any fevers. Reports her abdomen is gradually distending. Mentions she has been taking diuretics. Denies any blood in the vomitus or stool in the past few weeks. Had remote history of GI bleed per patient. Denies any difficulty swallowing. Denies any chest pain or palpitations. Review of all other systems is negative except mentioned above ER course: Per ER team patient noted to have coarse breath sounds; acutely hypoxic; placed on non-rebreather initially subsequently transitioned to Oxymizer at 10 L; pat ient was able to finish full sentences. ABG showed compensated; CT chest was done which showed pulmonary emboli as well as findings concerning for pneumonia. Patient also noted to have ascites. Patient was started on heparin drip. ER team discussed with Dr. Leger from Gastroenterology who agreed for anticoagulation. [facility] Medical History Erosive esophagitis Esophageal varices Liver cirrhosis No known health problems Pertinent family history: Patient Does not recall information. Social History Household Members: Spouse Household Members Other:: 1 Housing: House Do you presently have visiting nurse or other home services: No Alcohol intake: former Patient Tobacco Use Status: Current everyday Tobacco user Tobacco use type: Cigarette Cigarette Packs Per Day: 2.5 Cigarettes Per Day: 50.0 Second Hand Smoke Exposure: No Advance Directives: No Advance Directives Information Provided: No service: No Meds Allergies Allergy/AdvReac Type Severity Reaction Status Date / Time No Known Allergies Allergy Verified 02/14/22 10:38 Active Medications: Current Medications Acetaminophen (Acetaminophen 325 Mg Tablet) 650 mg PO Q6H PRN PRN Reason: Pain, Mild (Pain Scale 1-3) Heparin Sodium (Porcine) (Heparin Sodium,Porcine 5,000 Unit/Ml Vial) 3,000 unit 40 unit/kg (3000 unit) IVPUSH PROTOCOL BOLUS PRN; Protocol PRN Reason: 40 unit/kg - Heparin Protocol Heparin Sodium (Porcine) (Heparin Sodium,Porcine 5,000 Unit/Ml Vial) 5,900 unit 80 unit/kg (5900 unit) IVPUSH PROTOCOL BOLUS PRN; Protocol PRN Reason: 80 unit/kg - Heparin Protocol Hydromorphone HCl (Hydromorphone Hcl 1 Mg/Ml Syringe) 0.5 mg IVPUSH Q4H PRN; Protocol PRN Reason: Pain, Severe (Pain Scale 7-10) Heparin Sodium/Sodium Chloride () 25,000 unit in 250 mls @ 0 mls/hr IVCONT .Q0M [facility]; Protocol Last Admin: 04/12/22 20:40 Dose: 14 units/kg/hr, 10.37 mls/hr Documented by: Sodium Chloride (Ns) 1,000 mls @ 100 mls/hr IVCONT .Q10H [facility] Last Admin: 04/12/22 22:04 Dose: 100 mls/hr Documented by: Melatonin (Melatonin 3 Mg Tablet) 6 mg PO BEDTIME PRN PRN Reason: Insomnia Pharmacy Consult (Consult Rx Perform Med Rec) 1 each MISCELLANE ONCE PRN PRN Reason: Consult order Senna (Sennosides 8.6 Mg Tablet) 17.2 mg PO BEDTIME PRN PRN Reason: Constipation Sodium Chloride (0.9 % Sodium Chloride Flush 3 Ml Syringe) 3 ml IVFLUSH QSHIFT [facility] Home Medications Medication Instructions Recorded Confirmed Last Taken Type furosemide 40 mg tablet 1 tab PO DAILY 04/13/22 04/13/22 04/12/22 History spironolactone 100 mg tablet 1 tab PO DAILY 04/13/22 04/13/22 04/12/22 History Physical Exam Vital Signs and Narrative: Vital Signs: Last Vital Signs Temp 98.4 F 04/12/22 22:55 Pulse 107 H 04/12/22 22:55 Resp 20 04/12/22 22:55 BP 115/67 05/17/22 22:55 Pulse Ox 10 L 04/12/22 22:55 BMI result Body Mass Index 28.9 Gen: Appears be in no acute distress sounds. On supplemental oxygen-Oxymizer; speaks in full sentences. HEENT: NCAT, Moist mucosa. Pulmonary: Rales and rhonchi present. Coarse breath sounds. CVS: Normal S1-S2 Abdomen: BS+, Soft, abdomen distended, mildly firm, fluid present Extremities: Warm well perfused Neuro: Alert and awake. Moves all extremities equally; oriented x3; mentating well; no asterixis Results Labs CBC and Chem 7: 04/13/22 02:02 04/12/22 16:27 Labs: Laboratory Results - last 24 hr 04/12/22 04/12/22 04/12/22 16:26 16:26 16:26 MCV 97.0 MCH 32.3 MCHC 33.2 RDW 15.0 Plt Count 124 L MPV 9.8 Immature Gran % (Auto) 0.9 H Neut % (Auto) 82.2 H Lymph % (Auto) 8.7 L Tucker % (Auto) 7.8 Eos % (Auto) 0.2 Baso % (Auto) 0.2 Lymph # (Auto) 1.3 Tucker # (Auto) 1.2 Eos # (Auto) 0.0 Baso # (Auto) 0.0 Abs Immat Gran (auto) 0.13 H Absolute Neuts (auto) 12.3 H Absolute Nucleated RBC 0.000 Nucleated RBC % (auto) 0.0 PT INR APTT D-Dimer High Sensitivty 7053 VBG pH VBG pCO2 VBG pO2 VBG HCO3 VBG O2 Saturation VBG Base Excess Anion Gap Estim Creat Clear Calc Estimated GFR Random Glucose Lactic Acid Lactic Acid F/U @ 2Hr Calcium Magnesium Total Bilirubin AST ALT Alkaline Phosphatase Ammonia Troponin I High Sens 20.5 H B-Natriuretic Peptide 65 Total Protein Albumin COVID-19 (LISA) COVID-19 Clin Com Influenza Type A (RANCHO) Influenza Type B (RANCHO) Influenza A & B Note 04/12/22 04/12/22 04/12/22 16:27 16:27 16:27 MCV MCH MCHC RDW Plt Count MPV Immature Gran % (Auto) Neut % (Auto) Lymph % (Auto) Tucker % (Auto) Eos % (Auto) Baso % (Auto) Lymph # (Auto) Tucker # (Auto) Eos # (Auto) Baso # (Auto) Abs Immat Gran (auto) Absolute Neuts (auto) Absolute Nucleated RBC Nucleated RBC % (auto) PT INR APTT D-Dimer High Sensitivty VBG pH VBG pCO2 VBG pO2 VBG HCO3 VBG O2 Saturation VBG Base Excess Anion Gap 14 Estim Creat Clear Calc 45.7 Estimated GFR 55 Random Glucose 115 Lactic Acid Lactic Acid F/U @ 2Hr Calcium 8.5 Magnesium 2.1 Total Bilirubin 2.3 H AST 56 H ALT 35 H Alkaline Phosphatase 124 H Ammonia Troponin I High Sens B-Natriuretic Peptide Total Protein 6.5 Albumin 2.4 L COVID-19 (LISA) Negative COVID-19 Clin Com See Note Influenza Type A (RANCHO) Negative Influenza Type B (RANCHO) Negative Influenza A & B Note See Note 04/12/22 04/12/22 04/12/22 16:32 18:50 19:54 MCV MCH MCHC RDW Plt Count MPV Immature Gran % (Auto) Neut % (Auto) Lymph % (Auto) Tucker % (Auto) Eos % (Auto) Baso % (Auto) Lymph # (Auto) Tucker # (Auto) Eos # (Auto) Baso # (Auto) Abs Immat Gran (auto) Absolute Neuts (auto) Absolute Nucleated RBC Nucleated RBC % (auto) PT 15.6 H INR 1.4 H APTT 30.8 D-Dimer High Sensitivty VBG pH 7.34 VBG pCO2 40 VBG pO2 69 VBG HCO3 22 VBG O2 Saturation 86.0 VBG Base Excess -3.5 Anion Gap Estim Creat Clear Calc Estimated GFR Random Glucose Lactic Acid 5.1 H* Lactic Acid F/U @ 2Hr Calcium Magnesium Total Bilirubin AST ALT Alkaline Phosphatase Ammonia Troponin I High Sens B-Natriuretic Peptide Total Protein Albumin COVID-19 (LISA) COVID-19 Clin Com Influenza Type A (RANCHO) Influenza Type B (RANCHO) Influenza A & B Note 04/12/22 04/12/22 04/12/22 22:44 22:44 22:44 MCV MCH MCHC RDW Plt Count MPV Immature Gran % (Auto) Neut % (Auto) Lymph % (Auto) Tucker % (Auto) Eos % (Auto) Baso % (Auto) Lymph # (Auto) Tucker # (Auto) Eos # (Auto) Baso # (Auto) Abs Immat Gran (auto) Absolute Neuts (auto) Absolute Nucleated RBC Nucleated RBC % (auto) PT INR APTT D-Dimer High Sensitivty VBG pH VBG pCO2 VBG pO2 VBG HCO3 VBG O2 Saturation VBG Base Excess Anion Gap Estim Creat Clear Calc Estimated GFR Random Glucose Lactic Acid Lactic Acid F/U @ 2Hr 6.8 H* Calcium Magnesium Total Bilirubin AST ALT Alkaline Phosphatase Ammonia 60 H Troponin I High Sens 33.0 H D B-Natriuretic Peptide Total Protein Albumin COVID-19 (LISA) COVID-19 Clin Com Influenza Type A (RANCHO) Influenza Type B (RANCHO) Influenza A & B Note Imaging Radiologist's Impressions: Impressions Chest X-Ray 04/12/22 15:24 IMPRESSION: Low lung volumes and bilateral atelectasis/infiltrates. Abdomen/Pelvis CT 04/12/22 17:03 IMPRESSION: 1. No evidence of bowel rupture status post endoscopy. 2. New multifocal pulmonary infiltrates, some groundglass, some more consolidative suggesting pneumonia. Some of the groundglass changes are typically seen with Covid. 3. Increasing large volume ascites with cirrhotic appearing liver. 4. Other incidental findings described above including cholelithiasis severe atherosclerotic changes and anasarca Fleischner guidelines were followed. Chest CT 04/12/22 17:03 IMPRESSION: 1. No evidence of bowel rupture status post endoscopy. 2. New multifocal pulmonary infiltrates, some groundglass, some more consolidative suggesting pneumonia. Some of the groundglass changes are typically seen with Covid. 3. Increasing large volume ascites with cirrhotic appearing liver. 4. Other incidental findings described above including cholelithiasis severe atherosclerotic changes and anasarca Fleischner guidelines were followed. Chest CTA 04/12/22 17:59 IMPRESSION: Small number of acute pulmonary emboli in the right upper lobe, left upper lobe and left lower lobe. No evidence of right heart strain. Multifocal pulmonary infiltrates as described in the CT report one hour ago. This critical result was discussed with ANTONIO Baldwin at 6:16pm on the day of the exam and it was ascertained that the content and urgency of the report was understood at the time of direct communication. VTE: positive Assessment and Plan (1) Hypoxia: Status: Acute (2) PNA (pneumonia): Status: Acute (3) Pulmonary emboli: Status: Acute (4) Ascites: Status: Acute (5) Cirrhosis: Status: Acute Plan 66-year-old female with a past medical history of alcoholic liver cirrhosis, erosive esophagitis, esophageal varices, history of GI bleed, presented to the hospital today with a chief complaint of shortness of breath. Will Noted to have following conditions: Acute hypoxic respiratory failure: In the setting of pulmonary embolism/pneumonia. Patient on supplemental oxygen Able to finish full sentences currently DuoNebs p.r.n. Acute pulmonary embolism: Patient noted to have multiple pulmonary emboli. No evidence of right heart strain. Troponins 33. Vitals stable. Patient started on heparin drip. Will also consult Hematology. Severe lactic acidosis: Patient on IV fluids. Pneumonia: Give the patient on IV vancomycin and Zosyn. noted severe Leukocytosis-?leukemoid reaction. ID Consult History of alcoholic liver cirrhosis/ascites: Patient has firm ascites Noted to have 3+ pedal edema. Patient mentions she is due for therapeutic tap on Monday. Requested ER physician for possible tap/ IR follow up in AM for paracentesis. History of esophageal varices/erosive esophagitis: Will give the patient on PPI. Patient was cleared for anticoagulation by Gastroenterology Dr. Leger. DVT prophylaxis: Patient on heparin drip Code status: Full code Discussed in detail with the patient about the plan of care including the risks and benefits of the about treatment options. Patient agreed to the above plan of care. Quality Stroke Does the patient have a stroke diagnosis?: No VTE Prior VTE?: No VTE Risk Level:: Medical - moderate - high VTE Device Contraindication: Treatment Not Indicated VTE Drug Contraindication: N/A - Med Ordered
[2022-04-13] VITALS (9 sets, daily range): BP systolic 90–119; BP diastolic 48–64; PULSE 81–98; RESP 17–22; TEMP 36.4–36.7; O2SAT 94–98
--- NOTE | 2022-04-13 | ECG_ITS ---
Test Reason : REPEAT Blood Pressure : / mmHG Vent. Rate : 092 BPM Atrial Rate : 092 BPM P-R Int : 132 ms QRS Dur : 110 ms QT Int : 424 ms P-R-T Axes : 054 075 015 degrees QTc Int : 524 ms Artifact in tracing Normal sinus rhythm Low voltage QRS Incomplete right bundle branch block T wave abnormality, consider anterior ischemia Prolonged QT Abnormal ECG When compared with ECG of 12-APR-2022 15:26, No significant change was found Referred By: Montez Tanner Electronically Signed By:HARVEY VEGA
--- NOTE | 2022-04-13 00:26 | PC.NURSE ---
Assumed care of pt Pt resting on stretcher AxO x 4 Pt tolerating oxymask at 9L with O2 sats in 94-97%. Pt tolerating heparin drip. No bleeding noted Denies any pain Will continue to monitor
[2022-04-13 00:49] LABS: Reflex Lactate? 2 Y
[2022-04-13 00:57] LABS: Lactic Acid 4.7 mmol/L (0.5-2.0)
[2022-04-13 01:38] LABS: PTT Heparin Drip > 200.0 SEC (53-77.9)
[2022-04-13 02:07] LABS: Basophils Absolute Auto 0.1 X10*3/uL (0.0-0.2); Basophils Percent Auto 0.2 % (0-2); Hematocrit 34.6 % (37.0-47.0); Hemoglobin 11.6 g/dl (12.0-16.0); Imm Gran Abs Auto 0.24 X10*3/uL (0.00-0.03); Imm Gran Pct Auto 0.8 % (0.0-0.4); Lymphocytes Absolute Auto 1.5 X10*3/uL (1.2-4.9); Lymphocytes Percent Auto 4.7 % (20-40); MANUAL DIFF FLAG SCAN; Mean Corpuscular HGB Conc 33.5 g/dl (31.0-35.0); Mean Corpuscular Volume 95.3 fL (80.0-98.0); Mean Platelet Volume 9.5 fL (9.4-12.3); Monocytes Absolute Auto 2.1 X10*3/uL (0.1-1.2); Monocytes Percent Auto 6.7 % (2-11); Neutrophils Absolute Auto 27.4 x10*3/uL (2.0-8.3); Neutrophils Percent Auto 87.6 % (45-73); Platelet Count 141 X10*3/uL (160-400); Red Blood Count 3.63 X10*6/uL (4.20-5.50); Red Cell Distribution Width 14.9 % (11.0-16.0); SCAN SMEAR FLAG 1
[2022-04-13 02:11] LABS: White Blood Count 31.2 X10*3/uL (4.8-10.8)
[2022-04-13 02:28] LABS: SLIDE REVIEW VERIFIED
[2022-04-13] MEDS: 0.9 % Sodium Chloride 1,000 ML 50 ML IVCONT (02:30)
[2022-04-13] MEDS: vancomycin HCL 1,000 MG in 0.9 % Sodium Chloride 250 ML 270 MG IV ×2 (02:32→22:25)
[2022-04-13] MEDS: Piperacillin Sodium/Tazobactam 3.375 GM in 0.9 % Sodium Chloride 50 ML IV ×2 (02:33→07:39)
[2022-04-13] MEDS: 0.9 % Sodium Chloride Flush 3 ML SYRINGE IVFLUSH ×2 (02:33→16:45)
[2022-04-13 02:40] LABS: Reflex Lactate? Lactic Acid Added
[2022-04-13 02:55] LABS: PTT Heparin Drip > 200.0 SEC (53-77.9)
--- NOTE | 2022-04-13 03:34 | PC.NURSE ---
Dr. Liriano aware of pt's elevated PTT, lactic and WBC Per verbal order, address PTT per protocol and if repeat lactic is <3, we can pause fluid until pt gets paracentesis.
[2022-04-13 03:39] LABS: ~Lactic Acid-LAB USE ONLY 4.9 mmol/L (0.5-2.0)
[2022-04-13 03:44] LABS: PTT Heparin Drip > 200.0 SEC (53-77.9)
[2022-04-13 04:55] LABS: Basophils Absolute Auto 0.1 X10*3/uL (0.0-0.2); Basophils Percent Auto 0.3 % (0-2); Hematocrit 32.6 % (37.0-47.0); Imm Gran Abs Auto 0.18 X10*3/uL (0.00-0.03); Imm Gran Pct Auto 0.6 % (0.0-0.4); MANUAL DIFF FLAG SCAN; Mean Corpuscular HGB Conc 33.7 g/dl (31.0-35.0); Mean Corpuscular Hemoglobin 32.6 pg (27.0-33.0); Mean Corpuscular Volume 96.7 fL (80.0-98.0); Mean Platelet Volume 9.7 fL (9.4-12.3); Monocytes Percent Auto 6.8 % (2-11); Neutrophils Absolute Auto 24.9 x10*3/uL (2.0-8.3); Neutrophils Percent Auto 85.3 % (45-73); Platelet Count 132 X10*3/uL (160-400); Red Blood Count 3.37 X10*6/uL (4.20-5.50); Red Cell Distribution Width 15.2 % (11.0-16.0); SCAN SMEAR FLAG 1; White Blood Count 29.2 X10*3/uL (4.8-10.8)
[2022-04-13 05:04] LABS: INTERNATIONAL NORM RATIO 1.8 (0.9-1.1); Prothrombin Time 20.5 SEC (9.9-13.0)
[2022-04-13 05:12] LABS: Anion Gap 14 (12-20); Blood Urea Nitrogen 27 mg/dL (9-16); Calcium 8.1 mg/dL (8.4-10.2); Carbon Dioxide 21 mmol/L (22-29); Chloride 102 mmol/L (96-108); Creatinine Clr Calc Pharmacy 48.5; Estimated Glomerular Filt Rate 50; Glucose Random 104 mg/dL (60-115); Potassium 4.6 mmol/L (3.3-5.1); Sodium 132 mmol/L (135-145)
[2022-04-13 05:20] LABS: Reflex Lactate? 2 Y
[2022-04-13] MEDS: Pantoprazole Sodium 40 MG/10 ML VIAL IVPUSH (06:17)
--- NOTE | 2022-04-13 06:52 | PHA.MEDREC ---
Pharmacy Consult ? Medication Reconciliation Pharmacy has reviewed the medication reconciliation completed by Dave. There are no remarkable issues for provider's attention. Rowena Payton, WillieD
[2022-04-13 06:57] LABS: PTT Heparin Drip 44.1 SEC (53-77.9)
--- NOTE | 2022-04-13 07:00 | CA_ITS ---
Transthoracic Echocardiogram Patient (Last, First, Middle): Palma Jimenez, Gender: Female Date of : 1955 Age: 66 Procedure Date: 04/13/2022 Procedure Type: Transthoracic Echocardiogram Location: [facility] [place] Height: 160.02 cm Weight: 73.94 kg BSA: 1.77 m2 Heart Rate: bpm BP: 114 / [address] Team Member: Referring MD: Montez Tanner MD Symptoms: pulmonary embolism Study Quality: Fair ECG Rhythm: Sinus Conclusions: - The left ventricular systolic function is normal. The calculated ejection fraction is 67% by biplane method. - No obvious valvular pathology seen on this study. Findings Left Ventricle Normal left ventricular cavity size. The left ventricular systolic function is normal. The calculated ejection fraction is 67% by biplane method. There is no evidence of regional wall motion abnormalities. Diastolic function is normal for age. Endocardial definition is suboptimal, but grossly no significant hypertrophy. Right Ventricle Normal right ventricular cavity size and systolic function. Atria Both atria are normal in size. Aortic Valve There is a normal trileaflet aortic valve. There is no aortic valve stenosis. There is no aortic valve regurgitation. Mitral Valve The mitral valve appears normal. There is no mitral valve regurgitation. There is no mitral valve stenosis. Pulmonic Valve The pulmonic valve was not well visualized. Tricuspid Valve Normal tricuspid valve structure. There is trace tricuspid valve regurgitation. The pulmonary artery systolic pressure is normal. Great Vessels The asc aorta is normal in size. Venous The inferior vena cava is normal in size and collapses greater than 50% with inspiration. Pericardium/Pleural There is no evidence of pericardial effusion. Prior Study Comparison No prior study available for comparison. Recommendations, Care & Conclusions No obvious valvular pathology seen on this study. Measurements 2D Linear Measurements IVSd: 1.26 0.6-0.9/0.6-1.0 cm LVIDd: 3.67 3.9-5.3/4.2-5.9 cm LVIDd Index: 2.07 2.4-3.2/2.2-3.1 cm/m2 LVIDs: 2.11 2.0-3.6 cm LVPWd: 1.23 0.7-1.1 cm Ao Root: 3.00 2.1-3.5 cm LA Diam: 3.20 2.7-3.8/3.0-4.0 cm LAIDs Index: 1.81 1.5-2.3 cm/m2 LV Mass: 191.69 67-162/88-224 g LV Mass Index: 108.30 43-95/49-115 g/m2 LVOT Diam: 2.00 3.0+(-)1.3 cm 2D Systolic Function EF 4C: 67.20 >55% EF 2C: 67.00 >55% EF BiP: 67.00 >55% Mitral Valve MV Pk E: 0.57 MV PK A: 0.82 MV Decel Time: 170.00 E/A: 0.70 E'Lateral: 10.10 E'Medial: 6.74 E/E' Med: 8.40 E/E' Lat: 5.60 PHT: 50.00 MVA PHT: 4.40 Decel [place]: 3.32 Aortic Valve AoV Pk Igor: 1.51 AoV Mn Igor: 1.00 AoV VTI: 0.41 AoV Pk Grad: 9.00 Aov Mn Grad: 5.00 MANUEL Cont.VTI: 2.15 LVOT LVOT Pk Igor: 0.94 LVOT Mn Igor: 0.71 LVOT VTI: 0.28 LVOT Pk Grad: 4.00 LVOT Mn Grad: 2.00 LVOT Diam: 2.00 LVOT Area: 3.14 Diastolic Function MV Pk E: 0.57 MV Pk A: 0.82 E/A: 0.70 E'Medial: 6.74 E/E' Med: 8.40 E' Laterial: 10.10 E/E' Lat: 5.60 Right Ventricle TAPSE (mm): 25.00 TVS' Igor: 11.00 Tricuspid Valve TR Pk Igor: 1.78 TR Pk Grad: 13.00 RA Press: 3.00 RVSP: 16.00 Great Vessels Aorta Ao Root-2D: 3.00 2.0-3.7 cm Ao Asc: 3.00 2.1-3.4 cm Pulmonary Valve PV Pk Igor: 1.11 Peak PV Grad: 5.00 Updated in Other Vendor System with Status of Final Tanner Dela Cruz MD electronically signed on 04/13/2022 4:59:52 PM with status of Final
--- NOTE | 2022-04-13 08:09 | PC.NURSE ---
Report received from Dave HAYES. Patient is resting comfortably on stretcher. Reports no pain at this time. Abdomen is distended and firm. Patient is on oxymask at 4L and O2 sat 96%. Patient aPTT results at 44.1 and Heparin restarted at 10 as per protocol and pharmacy confirmation. Nidhi HAYES at bedside. Lactic remains elevated but per hospitalist limiting fluids due to abdomen distension. Patient sitting upright eating breakfast at this time. Report given to Luz Maria in overflow. Awaiting transfer at this time. [facility] ontinue to monitor.
--- NOTE | 2022-04-13 08:20 | PM.HEMONCCN ---
Subjective - Subjective Chief complaint: Consult for: Pulmonary embolism. Patient: new to practice Consult date: 04/13/22 Requesting Physician: Flores. Primary Care Provider: Unknown Physician Medical Summary: DIAGNOSIS: PULMONARY EMBOLUS. HPI - Consult Narrative Reason for consult: CONSULT FOR: PULMONARY EMBOLISM. Narrative: Palma Jimenez is a 66 year old lady, presented to the ER yesterday, with a chief complaint of shortness of breath. Patient presented to the [facility] for EGD: She had banding of varices done. Status post EGD patient became very drowsy and hypoxic; patient was subsequently sent to the ER for further evaluation. Patient is alert and awake, answering questions appropriately, on supplemental oxygen; able to speak full sentences. Patient reported that over the past few days, she has been having shortness of breath which has been gradually worsening; also reports dry cough. Denies any fevers. Reports her abdomen has gradually been distending. Mentioned, she has been taking diuretics. Denies any blood in the vomitus or stool in the past few weeks. Had remote history of GI bleeding. Denies any difficulty swallowing. Denies any chest pain or palpitations. Review of all other systems is negative except mentioned above. ER course: Patient noted to have coarse breath sounds; acutely hypoxic; placed on non-rebreather initially subsequently transitioned to Oxymizer at 10 L; patient was able to finish full sentences. ABG showed compensated; CT chest was done which showed: multiple distal pulmonary emboli as well as findings concerning for pneumonia. ER team discussed with Dr. Leger from Gastroenterology who agreed for anticoagulation. She was started on IV heparin. Patient also noted to have ascites. [facility] Medical History: Past medical history of alcoholic liver cirrhosis, erosive esophagitis, esophageal varices, history of GI bleed. Erosive esophagitis Esophageal varices Liver cirrhosis No known health problems Family History: Patient Does not recall information. Social History: Household Members: Spouse Household Members Other:: 1 Housing: House Alcohol intake: former Patient Tobacco Use Status: Current everyday Tobacco user Tobacco use type: Cigarette Cigarette Packs Per Day: 2.5 Review of Systems - Constitutional Reports system reviewed and no additional complaints, except as documented, Reports weakness, Reports weight loss - Eyes Reports system reviewed and no additional complaints, except as documented - ENT Reports system reviewed and no additional complaints, except as documented - Cardiovascular Reports system reviewed and no additional complaints, except as documented - Respiratory Reports no additional respiratory complaints - Gastrointestinal Reports system reviewed and no additional complaints, except as documented - Genitourinary Reports no additional female genitourinary complaints - Musculoskeletal Reports system reviewed and no additional complaints, except as documented - Integumentary/Breasts Skin/Breast: Reports no additional skin complaints - Neurologic Denies dizziness, Denies loss of vision, Denies numbness, Denies tingling - Psychiatric Reports system reviewed and no additional complaints, except as documented - Endocrine Reports no additional endocrine complaints - Hematologic/Lymphatic Reports system reviewed and no additional complaints, except as documented - Allergic/Immunologic Reports system reviewed and no additional complaints, except as documented Oncology Screenings - ECOG Performance Status ECOG Performance Status: 0 [facility] Medical History: Medical History (Last Updated 04/15/22 @ 12:41 by Loy Ramos MD) Acute respiratory failure Erosive esophagitis Esophageal varices Liver cirrhosis No known health problems Pneumonitis Social History: Social History (Last Reviewed 04/13/22 @ 16:33 by Elaine Jackson MD) Living Situation History: Household Members: Spouse Household Members Other:: 1 Housing: House Do you presently have visiting nurse or other home services: No Tobacco History: Patient Tobacco Use Status: Current everyday Tobacco Tobacco use type: Cigarette Cigarette Packs Per Day: 2.5 Cigarettes Per Day: 4 e-Cigarette/Vaping Use: Never Used Second Hand Smoke Exposure: No Occupation Assessmet: service: No Current occupational status: retired Home Medications and Allergies Current Medications: Current Medications Acetaminophen (Acetaminophen 325 Mg Tablet) 650 mg PO Q6H PRN PRN Reason: Pain, Mild (Pain Scale 1-3) Heparin Sodium (Porcine) (Heparin Sodium,Porcine 5,000 Unit/Ml Vial) 3,000 unit 40 unit/kg (3000 unit) IVPUSH PROTOCOL BOLUS PRN; Protocol PRN Reason: 40 unit/kg - Heparin Protocol Heparin Sodium (Porcine) (Heparin Sodium,Porcine 5,000 Unit/Ml Vial) 5,900 unit 80 unit/kg (5900 unit) IVPUSH PROTOCOL BOLUS PRN; Protocol PRN Reason: 80 unit/kg - Heparin Protocol Hydromorphone HCl (Hydromorphone Hcl 1 Mg/Ml Syringe) 0.5 mg IVPUSH Q4H PRN; Protocol PRN Reason: Pain, Severe (Pain Scale 7-10) Heparin Sodium/Sodium Chloride () 25,000 unit in 250 mls @ 0 mls/hr IVCONT .Q0M [facility]; Protocol Last Titration: 04/13/22 07:44 Dose: 10 units/kg/hr, 7.41 mls/hr Documented by: Sodium Chloride (Ns) 1,000 mls @ 100 mls/hr IVCONT .Q10H [facility] Last Infusion: 04/13/22 07:48 Dose: Infused Documented by: Piperacillin Sod/Tazobactam (Sod 3.375 gm/ Sodium Chloride) 50 mls @ 100 mls/hr IV Q6H [facility] Last Admin: 04/13/22 07:39 Dose: 100 mls/hr Documented by: Sodium Chloride (Ns) 1,000 mls @ 50 mls/hr IVCONT .Q20H [facility] Last Admin: 04/13/22 02:30 Dose: 50 mls/hr Documented by: Vancomycin HCl 1,000 mg/ (Sodium Chloride) 270 mls @ 270 mls/hr IV Q24H [facility] Melatonin (Melatonin 3 Mg Tablet) 6 mg PO BEDTIME PRN PRN Reason: Insomnia Pantoprazole Sodium (Pantoprazole Sodium 40 Mg/10 Ml Vial) 40 mg IVPUSH DAILY@0630 [facility] Last Admin: 04/13/22 06:17 Dose: 40 mg Documented by: Pharmacy Consult (Consult Rx Perform Med Rec) 1 each MISCELLANE ONCE PRN PRN Reason: Consult order Pharmacy Consult (Consult Rx Vancomycin Dosing) 1 each MISCELLANE DAILY PRN PRN Reason: Consult order Senna (Sennosides 8.6 Mg Tablet) 17.2 mg PO BEDTIME PRN PRN Reason: Constipation Sodium Chloride (0.9 % Sodium Chloride Flush 3 Ml Syringe) 3 ml IVFLUSH QSHIFT [facility] Last Admin: 04/13/22 02:33 Dose: 3 ml Documented by: Home Medications Medication Instructions Recorded Confirmed Type furosemide 40 mg tablet 1 tab PO DAILY 04/13/22 04/13/22 History spironolactone 100 mg tablet 1 tab PO DAILY 04/13/22 04/13/22 History Allergies Allergy/AdvReac Type Severity Reaction Status Date / Time No Known Allergies Allergy Verified 02/14/22 10:38 Physical Exam Vital signs: Vital Signs Temp 98.4 F 04/12/22 22:55 Pulse 98 04/13/22 07:35 Resp 18 04/13/22 07:35 BP 119/60 04/13/22 07:35 Pulse Ox 96 04/13/22 07:35 Intake & Output 04/12/22 04/13/22 04/13/22 18:59 06:59 18:59 Intake Total 213.578 / 213.578 973.333 / 973.333 Balance 213.578 / 213.578 973.333 / 973.333 Intake: Intake, Oral Amount 110 / 110 Intake, IV Amount 103.578 / 103.578 973.333 / 973.333 Piperacillin Sodium/Tazobactam 50 / 50 3.375 gm In 0.9 % Sodium Chloride 50 ml @ 100 mls/hr IV Q6H [facility] Rx#:[id number] 0.9 % Sodium Chloride 1,000 ml 973.333 / 973.333 @ 100 mls/hr IVCONT .Q10H [facility] Rx#:[id number] Heparin Sodium,Porcine/1/2NS 25 53.578 / 53.578 0 / 0 ,000 unit In 250 ml @ Per Protocol IVCONT .Q0M [facility] Rx#: [id number] Other: Weight 58.967 kg 74.1 kg Weight in Grams 54839 Weight 74.1 kg - Constitutional Present: mild distress - Routine HEENT Exam Head: Present: normal inspection ENT: Present: mucous membranes moist - Routine Neck Exam Present: supple - Routine Respiratory Exam Present: CTAB - Routine Cardiovascular Exam Cardiovascular: Present: RRR, S1, S2 - Routine Abdominal Exam Present: normal bowel sounds, nontender - Routine Extremities Exam Present: nontender - Routine Skin Exam Present: intact - Routine Neurological Exam Present: alert, oriented X3 - Detailed Neurological Exam: Coma Scale Eye Opening: Spontaneous (4) Verbal Response: Oriented (5) Motor Response: Obeys commands (6) [place] Coma Scale Total: 15 - Routine Psychiatric Exam Present: anxious Hem/Onc Consult Result - Labs CBC & Chem 7: 04/17/22 07:05 04/17/22 07:05 Labs: Short CBC 04/12/22 04/13/22 04/13/22 Range/Units 16:26 02:02 04:48 WBC 15.0 H 31.2 H* Cancelled (4.8-10.8) X10*3/uL Hgb 12.9 11.6 L Cancelled (12.0-16.0) g/dl Hct 38.8 34.6 L Cancelled (37.0-47.0) % Plt Count 124 L 141 L Cancelled (160-400) X10*3/uL 04/13/22 Range/Units 04:48 WBC 29.2 H (4.8-10.8) X10*3/uL Hgb 11.0 L (12.0-16.0) g/dl Hct 32.6 L (37.0-47.0) % Plt Count 132 L (160-400) X10*3/uL BMP 04/12/22 04/13/22 16:27 04:48 Sodium 132 L 132 L Potassium 4.5 4.6 Chloride 101 102 Carbon Dioxide 22 21 L BUN 24 H 27 H Creatinine 1.00 1.10 Calcium 8.5 8.1 L Liver Function 04/12/22 Range/Units 16:27 Total Bilirubin 2.3 H (0.0-1.0) mg/dL AST 56 H (5-31) U/L ALT 35 H (0-31) U/L Alkaline Phosphatase 124 H (39-117) U/L Albumin 2.4 L (3.5-5.0) g/dL Assessment and Plan Patient Active problem list reviewed?: Yes (1) Pulmonary emboli Status: Acute Assessment and plan: 66-year-old lady who presented with shortness of breath. CTA from 04/12: Small number of acute pulmonary emboli in the right upper lobe, left upper lobe and left lower lobe. No evidence of right heart strain. Multifocal pulmonary infiltrates as described in the CT report one hour ago. In addition, she had hematemesis. This began yesterday morning. She has a history of alcohol abuse, although she states she has not had anything to drink for last 3 weeks. She has noted abdominal bloating over this time period and felt nauseous. Subsequently, she developed hematemesis with vomiting of dark red blood several times. She stated stools have been loose, but denies gui melena. She has no prior history of GI bleeding and denies use of NSAIDs or blood thinners. She had an upper endoscopy by Dr. Vaz on 04/12: Esophageal varices, status post banding. RECOMMENDATION: Repeat EGD in 6-8 weeks for reassessment of varices and further banding if necessary. PLAN: Will check lower extremity ultrasound to look for DVT. This did reveal a DVT: Nonocclusive deep venous thrombus in the right popliteal vein. No extension centrally into the femoral or common femoral vein. No evidence of deep venous arms in the left lower extremity however the bilateral peroneal veins were not identified. She has had tense ascites. She had a paracentesis done after holding the IV heparin. She had drainage of 8.8 L of fluid. After which she felt quite comfortable. Now down to 2 L by nasal cannula. Eating dinner. Will discuss with GI as to when it would be appropriate to start oral anticoagulation. Thank you for the consult, Will follow along with you, Cc: Clifford. Simmons. - Time Spent With Patient Time Spent with Patient (in minutes): 30
--- NOTE | 2022-04-13 10:13 | MHC.CM.PN ---
CM met with Patient at bedside and addressed IMM with her, providing her with the original and a copy will be placed on the chart. Patient lives in a house with her and home/no services is the goal; CM has initiated and will follow for dc planning. Patient received Pfizer/Covid vax X3 and she has no PCP.
[2022-04-13] MEDS: Albumin Human 25 % 100 ML IV ×4 (10:29→17:49)
[2022-04-13 10:37] LABS: Cancel Lactic Acid Canceled
--- NOTE | 2022-04-13 11:26 | PHA.PROG ---
Admission Date/Time: April 12, 2022 23:19 Indication: Pneumonia Weight in k.1 kg Adjusted body weight in K.1 mg [place] body weight in K.4 kg Obesity Dosing Indication % IBW: 141% Serum Creatinine - Last 168 Hours 04/12/22 04/13/22 16:27 04:48 Creatinine 1.00 1.10 Estimated CrCl and GFR - Last 168 Hours 04/12/22 04/13/22 16:27 04:48 Estim Creat Clear Calc 45.7 48.5 Estimated GFR 55 50 Vancomycin Loading Dose: N/A Current Vancomycin Dosing Regimen: 1000 mg Q24H Date and Time for next Vancomycin Level to be drawn: 04/15 @ 1900 Pharmacist Comments on Vancomycin Plan: Since % IBW is 141% will require obesity dosing First dose given in the ED vancomycin 1000 mg (13.5 mg/kg) 04/13 @ 0232. Patient was no given an adequate loading dose for his weight. Will start maintenance dose vancomcyin 1000 mg Q24H on 04/13 @ 2100. Dose given in 18 hours to help create a load dose for patient. Expected AUC 516 with a trough of 15.1 Trough to be drawn prior to 4th dose Pharmacy to monitor renal function daily. Rowena Payton PharmD Vancomycin dosing will take advantage of [employer] as a clinical decision support tool that uses Bayesian modeling to calculate individual patient's pharmacokinetic parameters and forecast the patient's drug concentration time course with the target goal AUC 24 range of 400 - 600 mg/L/hr.
[2022-04-13 11:36] LABS: Lactate Dehydrogenase 229 U/L (122-220)
[2022-04-13 14:31] LABS: PTT Heparin Drip 66.4 SEC (53-77.9)
--- NOTE | 2022-04-13 15:11 | HO.RADPN ---
RADIOLOGY Narrative Narrative: RLQ paracentesis using 4 fr catheter. L clear yellow fluid. Specimen sent. Hold Heparin for 2 hours and don't rebolus if possible.
--- NOTE | 2022-04-13 15:54 | P.PNIM_ITS ---
Subjective Subjective Date of Service: 04/13/22 Interval History: Hypoxemic respiratory failure secondary to pneumonia as well as pulmonary embolism, liver disease with ascites. Esophageal varices -had EGD done today and had varices banding also done with minor oozing. Review of Systems Denies any abdominal pain or nausea or vomiting or fever chills. Says that shortness of breath is slightly better than this morning, denies any chest pain. Physical Exam Vital Signs: Vital Signs: Last Vital Signs Temp 98.4 F 04/12/22 22:55 Pulse 81 04/13/22 12:19 Resp 19 04/13/22 12:19 BP 98/59 L 04/13/22 12:19 Pulse Ox 94 04/13/22 12:19 BMI result Body Mass Index 28.9 Appearance: Alert.? Oriented X3.? Eyes: Pupils equal, round and reactive to light.? Sclera mild icteric.? ENT: Pharynx normal.? Moist mucous membranes. cvs: rrr, [id number] , no murmur res: air entry fair ,slightly diminshed at bases. abd: significant ascitis ,nt, bs present. ext pulses present , no cyanosis. neuro: axo3 , nonfocal. Objective Data Active Medications Acetaminophen (Acetaminophen 325 Mg Tablet) 650 mg PO Q6H PRN PRN Reason: Pain, Mild (Pain Scale 1-3) Heparin Sodium (Porcine) (Heparin Sodium,Porcine 5,000 Unit/Ml Vial) 3,000 unit 40 unit/kg (3000 unit) IVPUSH PROTOCOL BOLUS PRN; Protocol PRN Reason: 40 unit/kg - Heparin Protocol Heparin Sodium (Porcine) (Heparin Sodium,Porcine 5,000 Unit/Ml Vial) 5,900 unit 80 unit/kg (5900 unit) IVPUSH PROTOCOL BOLUS PRN; Protocol PRN Reason: 80 unit/kg - Heparin Protocol Hydromorphone HCl (Hydromorphone Hcl 1 Mg/Ml Syringe) 0.5 mg IVPUSH Q4H PRN; Protocol PRN Reason: Pain, Severe (Pain Scale 7-10) Heparin Sodium/Sodium Chloride () 25,000 unit in 250 mls @ 0 mls/hr IVCONT .Q0M MAYO; Protocol Last Titration: 04/13/22 13:09 Dose: 0 units/kg/hr, 0 mls/hr Documented by: ZENIA Goodigned by: NATALI Piperacillin Sod/Tazobactam (Sod 3.375 gm/ Sodium Chloride) 50 mls @ 100 mls/hr IV Q6H [facility] Last Infusion: 04/13/22 09:08 Dose: 0 mls/hr Documented by: ZENIA Vancomycin HCl 1,000 mg/ (Sodium Chloride) 270 mls @ 270 mls/hr IV Q24H [facility] Albumin Human (Kedbumin 25 %) 100 mls @ 100 mls/hr IV Q1H [facility] Stop: 04/13/22 17:29 Melatonin (Melatonin 3 Mg Tablet) 6 mg PO BEDTIME PRN PRN Reason: Insomnia Midodrine (Midodrine Hcl 2.5 Mg Tablet) 2.5 mg PO TID MAYO Pantoprazole Sodium (Pantoprazole Sodium 40 Mg/10 Ml Vial) 40 mg IVPUSH DAILY@0630 [facility] Last Admin: 04/13/22 06:17 Dose: 40 mg Documented by: CHAPARRITA Pharmacy Consult (Consult Rx Perform Med Rec) 1 each MISCELLANE ONCE PRN PRN Reason: Consult order Pharmacy Consult (Consult Rx Vancomycin Dosing) 1 each MISCELLANE DAILY PRN PRN Reason: Consult order Senna (Sennosides 8.6 Mg Tablet) 17.2 mg PO BEDTIME PRN PRN Reason: Constipation Sodium Chloride (0.9 % Sodium Chloride Flush 3 Ml Syringe) 3 ml IVFLUSH QSHIFT [facility] Last Admin: 04/13/22 09:08 Dose: Not Given Documented by: ZENIA Non-Admin Reason: IV Running Labs CBC & Chem 7: 04/13/22 04:48 04/13/22 04:48 Labs: Laboratory Results - last 24 hr 04/12/22 04/12/22 04/12/22 16:26 16:26 16:26 MCV 97.0 MCH 32.3 MCHC 33.2 RDW 15.0 Plt Count 124 L MPV 9.8 Immature Gran % (Auto) 0.9 H Neut % (Auto) 82.2 H Lymph % (Auto) 8.7 L Granite % (Auto) 7.8 Eos % (Auto) 0.2 Baso % (Auto) 0.2 Lymph # (Auto) 1.3 Granite # (Auto) 1.2 Eos # (Auto) 0.0 Baso # (Auto) 0.0 Abs Immat Gran (auto) 0.13 H Absolute Neuts (auto) 12.3 H Absolute Nucleated RBC 0.000 Nucleated RBC % (auto) 0.0 Smear Tech's Comments PT INR APTT aPTT Heparin Protocol D-Dimer High Sensitivty 7053 VBG pH VBG pCO2 VBG pO2 VBG HCO3 VBG O2 Saturation VBG Base Excess Anion Gap Estim Creat Clear Calc Estimated GFR Random Glucose Lactic Acid Lactic Acid F/U @ 2Hr Lactic Acid F/U @ 4Hr Calcium Magnesium Total Bilirubin AST ALT Alkaline Phosphatase Ammonia Lactate Dehydrogenase Troponin I High Sens 20.5 H B-Natriuretic Peptide 65 Total Protein Albumin COVID-19 (LISA) COVID-19 Clin Com Influenza Type A (RANCHO) Influenza Type B (RANCHO) Influenza A & B Note 04/12/22 04/12/22 04/12/22 16:27 16:27 16:27 MCV MCH MCHC RDW Plt Count MPV Immature Gran % (Auto) Neut % (Auto) Lymph % (Auto) Granite % (Auto) Eos % (Auto) Baso % (Auto) Lymph # (Auto) Granite # (Auto) Eos # (Auto) Baso # (Auto) Abs Immat Gran (auto) Absolute Neuts (auto) Absolute Nucleated RBC Nucleated RBC % (auto) Smear Tech's Comments PT INR APTT aPTT Heparin Protocol D-Dimer High Sensitivty VBG pH VBG pCO2 VBG pO2 VBG HCO3 VBG O2 Saturation VBG Base Excess Anion Gap 14 Estim Creat Clear Calc 45.7 Estimated GFR 55 Random Glucose 115 Lactic Acid Lactic Acid F/U @ 2Hr Lactic Acid F/U @ 4Hr Calcium 8.5 Magnesium 2.1 Total Bilirubin 2.3 H AST 56 H ALT 35 H Alkaline Phosphatase 124 H Ammonia Lactate Dehydrogenase Troponin I High Sens B-Natriuretic Peptide Total Protein 6.5 Albumin 2.4 L COVID-19 (LISA) Negative COVID-19 Clin Com See Note Influenza Type A (RANCHO) Negative Influenza Type B (RANCHO) Negative Influenza A & B Note See Note 04/12/22 04/12/22 04/12/22 16:32 18:50 19:54 MCV MCH MCHC RDW Plt Count MPV Immature Gran % (Auto) Neut % (Auto) Lymph % (Auto) Granite % (Auto) Eos % (Auto) Baso % (Auto) Lymph # (Auto) Granite # (Auto) Eos # (Auto) Baso # (Auto) Abs Immat Gran (auto) Absolute Neuts (auto) Absolute Nucleated RBC Nucleated RBC % (auto) Smear Tech's Comments PT 15.6 H INR 1.4 H APTT 30.8 aPTT Heparin Protocol D-Dimer High Sensitivty VBG pH 7.34 VBG pCO2 40 VBG pO2 69 VBG HCO3 22 VBG O2 Saturation 86.0 VBG Base Excess -3.5 Anion Gap Estim Creat Clear Calc Estimated GFR Random Glucose Lactic Acid 5.1 H* Lactic Acid F/U @ 2Hr Lactic Acid F/U @ 4Hr Calcium Magnesium Total Bilirubin AST ALT Alkaline Phosphatase Ammonia Lactate Dehydrogenase Troponin I High Sens B-Natriuretic Peptide Total Protein Albumin COVID-19 (LISA) COVID-19 Clin Com Influenza Type A (RANCHO) Influenza Type B (RANCHO) Influenza A & B Note 04/12/22 04/12/22 04/12/22 22:44 22:44 22:44 MCV MCH MCHC RDW Plt Count MPV Immature Gran % (Auto) Neut % (Auto) Lymph % (Auto) Granite % (Auto) Eos % (Auto) Baso % (Auto) Lymph # (Auto) Granite # (Auto) Eos # (Auto) Baso # (Auto) Abs Immat Gran (auto) Absolute Neuts (auto) Absolute Nucleated RBC Nucleated RBC % (auto) Smear Tech's Comments PT INR APTT aPTT Heparin Protocol D-Dimer High Sensitivty VBG pH VBG pCO2 VBG pO2 VBG HCO3 VBG O2 Saturation VBG Base Excess Anion Gap Estim Creat Clear Calc Estimated GFR Random Glucose Lactic Acid Lactic Acid F/U @ 2Hr 6.8 H* Lactic Acid F/U @ 4Hr Calcium Magnesium Total Bilirubin AST ALT Alkaline Phosphatase Ammonia 60 H Lactate Dehydrogenase Troponin I High Sens 33.0 H D B-Natriuretic Peptide Total Protein Albumin COVID-19 (LISA) COVID-19 Clin Com Influenza Type A (RANCHO) Influenza Type B (RANCHO) Influenza A & B Note 04/13/22 04/13/22 04/13/22 00:37 00:37 02:02 MCV 95.3 MCH 32.0 MCHC 33.5 RDW 14.9 Plt Count 141 L MPV 9.5 Immature Gran % (Auto) 0.8 H Neut % (Auto) 87.6 H Lymph % (Auto) 4.7 L Granite % (Auto) 6.7 Eos % (Auto) 0.0 Baso % (Auto) 0.2 Lymph # (Auto) 1.5 Granite # (Auto) 2.1 H Eos # (Auto) 0.0 Baso # (Auto) 0.1 Abs Immat Gran (auto) 0.24 H Absolute Neuts (auto) 27.4 H Absolute Nucleated RBC 0.000 Nucleated RBC % (auto) 0.0 Smear Tech's Comments VERIFIED PT INR APTT aPTT Heparin Protocol > 200.0 H* D-Dimer High Sensitivty VBG pH VBG pCO2 VBG pO2 VBG HCO3 VBG O2 Saturation VBG Base Excess Anion Gap Estim Creat Clear Calc Estimated GFR Random Glucose Lactic Acid 4.7 H* Lactic Acid F/U @ 2Hr Lactic Acid F/U @ 4Hr Calcium Magnesium Total Bilirubin AST ALT Alkaline Phosphatase Ammonia Lactate Dehydrogenase Troponin I High Sens B-Natriuretic Peptide Total Protein Albumin COVID-19 (LISA) COVID-19 Clin Com Influenza Type A (RANCHO) Influenza Type B (RANCHO) Influenza A & B Note 04/13/22 04/13/22 04/13/22 02:02 03:15 03:15 MCV MCH MCHC RDW Plt Count MPV Immature Gran % (Auto) Neut % (Auto) Lymph % (Auto) Granite % (Auto) Eos % (Auto) Baso % (Auto) Lymph # (Auto) Granite # (Auto) Eos # (Auto) Baso # (Auto) Abs Immat Gran (auto) Absolute Neuts (auto) Absolute Nucleated RBC Nucleated RBC % (auto) Smear Tech's Comments PT INR APTT aPTT Heparin Protocol > 200.0 H* > 200.0 H* D-Dimer High Sensitivty VBG pH VBG pCO2 VBG pO2 VBG HCO3 VBG O2 Saturation VBG Base Excess Anion Gap Estim Creat Clear Calc Estimated GFR Random Glucose Lactic Acid Lactic Acid F/U @ 2Hr 4.9 H* Lactic Acid F/U @ 4Hr Calcium Magnesium Total Bilirubin AST ALT Alkaline Phosphatase Ammonia Lactate Dehydrogenase Troponin I High Sens B-Natriuretic Peptide Total Protein Albumin COVID-19 (LISA) COVID-19 Clin Com Influenza Type A (RANCHO) Influenza Type B (RANCHO) Influenza A & B Note 04/13/22 04/13/22 04/13/22 04:48 04:48 04:48 MCV Cancelled 96.7 MCH Cancelled 32.6 MCHC Cancelled 33.7 RDW Cancelled 15.2 Plt Count Cancelled 132 L MPV Cancelled 9.7 Immature Gran % (Auto) 0.6 H Neut % (Auto) 85.3 H Lymph % (Auto) 7.0 L Granite % (Auto) 6.8 Eos % (Auto) 0.0 Baso % (Auto) 0.3 Lymph # (Auto) 2.0 Granite # (Auto) 2.0 H Eos # (Auto) 0.0 Baso # (Auto) 0.1 Abs Immat Gran (auto) 0.18 H Absolute Neuts (auto) 24.9 H Absolute Nucleated RBC Cancelled 0.000 Nucleated RBC % (auto) Cancelled 0.0 Smear Tech's Comments PT 20.5 H INR 1.8 H APTT aPTT Heparin Protocol D-Dimer High Sensitivty VBG pH VBG pCO2 VBG pO2 VBG HCO3 VBG O2 Saturation VBG Base Excess Anion Gap Estim Creat Clear Calc Estimated GFR Random Glucose Lactic Acid Lactic Acid F/U @ 2Hr Lactic Acid F/U @ 4Hr Calcium Magnesium Total Bilirubin AST ALT Alkaline Phosphatase Ammonia Lactate Dehydrogenase Troponin I High Sens B-Natriuretic Peptide Total Protein Albumin COVID-19 (LISA) COVID-19 Clin Com Influenza Type A (RANCHO) Influenza Type B (RANCHO) Influenza A & B Note 04/13/22 04/13/22 04/13/22 04:48 06:23 06:23 MCV MCH MCHC RDW Plt Count MPV Immature Gran % (Auto) Neut % (Auto) Lymph % (Auto) Granite % (Auto) Eos % (Auto) Baso % (Auto) Lymph # (Auto) Granite # (Auto) Eos # (Auto) Baso # (Auto) Abs Immat Gran (auto) Absolute Neuts (auto) Absolute Nucleated RBC Nucleated RBC % (auto) Smear Tech's Comments PT INR APTT aPTT Heparin Protocol 44.1 L D D-Dimer High Sensitivty VBG pH VBG pCO2 VBG pO2 VBG HCO3 VBG O2 Saturation VBG Base Excess Anion Gap 14 Estim Creat Clear Calc 48.5 Estimated GFR 50 Random Glucose 104 Lactic Acid Lactic Acid F/U @ 2Hr Lactic Acid F/U @ 4Hr Cancelled Calcium 8.1 L Magnesium Total Bilirubin AST ALT Alkaline Phosphatase Ammonia Lactate Dehydrogenase 229 H Troponin I High Sens B-Natriuretic Peptide Total Protein Albumin COVID-19 (LISA) COVID-19 Clin Com Influenza Type A (RANCHO) Influenza Type B (RANCHO) Influenza A & B Note 04/13/22 04/13/22 10:10 14:05 MCV MCH MCHC RDW Plt Count MPV Immature Gran % (Auto) Neut % (Auto) Lymph % (Auto) Granite % (Auto) Eos % (Auto) Baso % (Auto) Lymph # (Auto) Granite # (Auto) Eos # (Auto) Baso # (Auto) Abs Immat Gran (auto) Absolute Neuts (auto) Absolute Nucleated RBC Nucleated RBC % (auto) Smear Tech's Comments PT INR APTT aPTT Heparin Protocol 66.4 D D-Dimer High Sensitivty VBG pH VBG pCO2 VBG pO2 VBG HCO3 VBG O2 Saturation VBG Base Excess Anion Gap Estim Creat Clear Calc Estimated GFR Random Glucose Lactic Acid Lactic Acid F/U @ 2Hr Lactic Acid F/U @ 4Hr Calcium Magnesium Total Bilirubin AST ALT Alkaline Phosphatase Ammonia Lactate Dehydrogenase Cancelled Troponin I High Sens B-Natriuretic Peptide Total Protein Albumin COVID-19 (LISA) COVID-19 Clin Com Influenza Type A (RANCHO) Influenza Type B (RANCHO) Influenza A & B Note Assessment and Plan (1) Cirrhosis: Status: Acute (2) Ascites: Status: Acute (3) Pulmonary emboli: Status: Acute (4) PNA (pneumonia): Status: Acute (5) Hypoxia: Status: Acute Plan 66-year-old female with a past medical history of alcoholic liver cirrhosis, erosive esophagitis, esophageal varices, history of GI bleed, presented to the hospital today with a chief complaint of shortness of breath.? Will Noted to have following conditions: Acute hypoxic respiratory failure: Multifactorial: pulmonary embolism/pneumonia, ascitis also pushing against the chest.? sob seems improving , says that still difficult to breathe due to the significant ascites. Patient on supplemental oxygen DuoNebs p.r.n. Blood culture pending Leukocytosis trending down Give the patient on IV vancomycin and Zosyn. Acute pulmonary embolism:??Patient noted to have multiple pulmonary emboli.? Troponins 33 probably related to pulmonary embolism/pneumonia. Echo added Started on heparin drip Leukocytosis trending down Hematology and Pulmonary evaluation pending. Severe lactic acidosis:? Probably secondary to liver disease, trending down patient is clinically improving so will stop trending lactic acid. stop fluids History of alcoholic liver cirrhosis/ascites: Patient has hypoalbuminemia possible related to poor oral intake as well as liver disease. Coagulopathy secondary to liver disease not due to sepsis LFTs actually trending down than before Patient said she quit alcohol 4 months ago Encouraged for p.o. intake. Patient going to get paracentesis, albumin ordered. Monitor liver function, renal function and electrolyte closely, PT INR. Patient has firm ascites? : Status post paracentesis. ascits fluid labs added hold off iv heparin for 2 hours and start back around 6 pm History of esophageal varices/erosive esophagitis:? Continue on PPI.? Continue iv heparin moniter h/h DVT prophylaxis: Patient on heparin drip inpatient need:pneumonia,pulm embolism, esophageal varices . Above management discussed with the patient in detail length. Quality Stroke Does the patient have a stroke diagnosis?: No VTE Prior VTE?: No VTE Risk Level:: Medical - moderate - high VTE Device Contraindication: Treatment Not Indicated VTE Drug Contraindication: N/A - Med Ordered
--- NOTE | 2022-04-13 16:32 | W.PM.IDCN ---
History of Present Illness Data of Consult Service Date: 04/13/22 Requesting physician: Lisa Hendricks Primary Care Provider: Unknown Physician HPI Reason for consult: shortness of breath She presents with shortness of breath, She is not normally hypoxic at home she reports. She also feels as though she may need paracentesis. She has no productive sputum or hemoptysisis Review of Systems Review of Systems: Yes all other systems are reviewed and are negative PMFSH Past Medical History Medical History Erosive esophagitis Esophageal varices Liver cirrhosis No known health problems Family History Family history: reviewed and not pertinent Social History Social History Household Members: Spouse Household Members Other:: 1 Housing: House Do you presently have visiting nurse or other home services: No Alcohol intake: former Patient Tobacco Use Status: Current everyday Tobacco user Tobacco use type: Cigarette Cigarette Packs Per Day: 2.5 Second Hand Smoke Exposure: No Advance Directives: No Advance Directives Information Provided: No service: No Current occupational status: retired [employer] Allergies Allergy/AdvReac Type Severity Reaction Status Date / Time No Known Allergies Allergy Verified 02/14/22 10:38 Active Medications: Current Medications Acetaminophen (Acetaminophen 325 Mg Tablet) 650 mg PO Q6H PRN PRN Reason: Pain, Mild (Pain Scale 1-3) Heparin Sodium (Porcine) (Heparin Sodium,Porcine 5,000 Unit/Ml Vial) 3,000 unit 40 unit/kg (3000 unit) IVPUSH PROTOCOL BOLUS PRN; Protocol PRN Reason: 40 unit/kg - Heparin Protocol Heparin Sodium (Porcine) (Heparin Sodium,Porcine 5,000 Unit/Ml Vial) 5,900 unit 80 unit/kg (5900 unit) IVPUSH PROTOCOL BOLUS PRN; Protocol PRN Reason: 80 unit/kg - Heparin Protocol Hydromorphone HCl (Hydromorphone Hcl 1 Mg/Ml Syringe) 0.5 mg IVPUSH Q4H PRN; Protocol PRN Reason: Pain, Severe (Pain Scale 7-10) Heparin Sodium/Sodium Chloride () 25,000 unit in 250 mls @ 0 mls/hr IVCONT .Q0M MAYO; Protocol Last Titration: 04/13/22 13:09 Dose: 0 units/kg/hr, 0 mls/hr Documented by: Piperacillin Sod/Tazobactam (Sod 3.375 gm/ Sodium Chloride) 50 mls @ 100 mls/hr IV Q6H [facility] Last Infusion: 04/13/22 09:08 Dose: Infused Documented by: Vancomycin HCl 1,000 mg/ (Sodium Chloride) 270 mls @ 270 mls/hr IV Q24H [facility] Albumin Human (Kedbumin 25 %) 100 mls @ 100 mls/hr IV Q1H [facility] Stop: 04/13/22 17:29 Melatonin (Melatonin 3 Mg Tablet) 6 mg PO BEDTIME PRN PRN Reason: Insomnia Midodrine (Midodrine Hcl 2.5 Mg Tablet) 2.5 mg PO TID [facility] Pantoprazole Sodium (Pantoprazole Sodium 40 Mg/10 Ml Vial) 40 mg IVPUSH DAILY@0630 [facility] Last Admin: 04/13/22 06:17 Dose: 40 mg Documented by: Pharmacy Consult (Consult Rx Perform Med Rec) 1 each MISCELLANE ONCE PRN PRN Reason: Consult order Pharmacy Consult (Consult Rx Vancomycin Dosing) 1 each MISCELLANE DAILY PRN PRN Reason: Consult order Senna (Sennosides 8.6 Mg Tablet) 17.2 mg PO BEDTIME PRN PRN Reason: Constipation Sodium Chloride (0.9 % Sodium Chloride Flush 3 Ml Syringe) 3 ml IVFLUSH QSHIFT [facility] Last Admin: 04/13/22 09:08 Dose: Not Given Documented by: Home Medications Medication Instructions Recorded Confirmed Last Taken Type furosemide 40 mg tablet 1 tab PO DAILY 04/13/22 04/13/22 04/12/22 History spironolactone 100 mg tablet 1 tab PO DAILY 04/13/22 04/13/22 04/12/22 History Physical Exam Vital Signs: Vital Signs: Last Vital Signs Temp 98.4 F 04/12/22 22:55 Pulse 81 04/13/22 12:19 Resp 19 04/13/22 12:19 BP 98/59 L 04/13/22 12:19 Pulse Ox 94 04/13/22 12:19 BMI result Body Mass Index 28.9 Const: General: cooperative HEENT: Head: Yes normal to inspection Mouth: Normal oral and palatal mucosa present Resp: Effort & Inspection: normal respiratory effort Auscultation: diminished lung sounds Cardio: Rate: regular rate Rhythm: regular rhythm GI: Palpation (GI): Soft to palpation and not firm Skin: General skin exam: no rashes or lesions noted Extrem: General: Yes normal to inspection Results Labs CBC & Chem 7: 04/13/22 04:48 04/13/22 04:48 Labs: Short CBC 04/12/22 04/13/22 04/13/22 Range/Units 16:26 02:02 04:48 WBC 15.0 H 31.2 H* Cancelled (4.8-10.8) X10*3/uL Hgb 12.9 11.6 L Cancelled (12.0-16.0) g/dl Hct 38.8 34.6 L Cancelled (37.0-47.0) % Plt Count 124 L 141 L Cancelled (160-400) X10*3/uL 04/13/22 Range/Units 04:48 WBC 29.2 H (4.8-10.8) X10*3/uL Hgb 11.0 L (12.0-16.0) g/dl Hct 32.6 L (37.0-47.0) % Plt Count 132 L (160-400) X10*3/uL BMP 04/12/22 04/13/22 16:27 04:48 Sodium 132 L 132 L Potassium 4.5 4.6 Chloride 101 102 Carbon Dioxide 22 21 L BUN 24 H 27 H Creatinine 1.00 1.10 Calcium 8.5 8.1 L Liver Function 04/12/22 Range/Units 16:27 Total Bilirubin 2.3 H (0.0-1.0) mg/dL AST 56 H (5-31) U/L ALT 35 H (0-31) U/L Alkaline Phosphatase 124 H (39-117) U/L Albumin 2.4 L (3.5-5.0) g/dL Assessment and Plan (1) Pulmonary emboli: Status: Acute (2) Hypoxia: Status: Acute There is most likely infiltrates related to infarction/embolus. Less likely infection with notable exception of possible septic emboli from staph aureus,doubt fungus. WBC likely due to leukemoid response to infection or embolus ,possible abdominal ascites tap needed. (3) PNA (pneumonia): Status: Acute Plan Continue Vancomycin alone. Stop Zosyn. Stop Vancomycin if no bacteremia found next day or two.
[2022-04-13] MEDS: Lidocaine HCl 1 % MPF 5 ML VIAL 4 ML SUBCUT (16:35)
[2022-04-13] MEDS: Midodrine HCl 2.5 MG TABLET PO ×2 (16:44→21:17)
[2022-04-13 17:24] LABS: Hematocrit 29.4 % (37.0-47.0); Hemoglobin 9.8 g/dl (12.0-16.0)
[2022-04-13 18:27] LABS: Lymphocyte Peritoneal Fl 25 %; Neutrophils Peritoneal Fluid 37 %; RBC Peritoneal Fluid < 0.002 X10*6/uL; WBC Peritoneal Fluid 0.122 X10*3/uL
[2022-04-13 18:28] LABS: BF Shift QC OK YES; MN% 60.6 %; Monocytes Peritoneal Fl 35 %; Other Peritioneal Fl 3 %; PMN% 39.4 %
[2022-04-13] MEDS: Heparin Sodium,Porcine/1/2NS 25,000 UNIT/250 ML IV.SOLN 7.41 UNIT IVCONT (21:13)
[2022-04-13] MEDS: Pantoprazole Sodium 80 MG in 0.9 % Sodium Chloride 80 ML 10 MG IV (21:17)
[2022-04-13] MEDS: Octreotide Acetate 500 MCG in 0.9 % Sodium Chloride 500 ML 25.05 MCG IVCONT (21:17)
[2022-04-13 21:19] LABS: Hematocrit 25.4 % (37.0-47.0); Hemoglobin 8.5 g/dl (12.0-16.0)
[2022-04-14] VITALS (8 sets, daily range): BP systolic 106–146; BP diastolic 56–79; PULSE 84–104; RESP 18–20; TEMP 36.4–37; O2SAT 84–93
[2022-04-14 02:47] LABS: Hematocrit 24.9 % (37.0-47.0); Hemoglobin 8.6 g/dl (12.0-16.0); Mean Corpuscular HGB Conc 34.5 g/dl (31.0-35.0); Mean Corpuscular Hemoglobin 32.6 pg (27.0-33.0); Mean Corpuscular Volume 94.3 fL (80.0-98.0); Platelet Count 101 X10*3/uL (160-400); Red Blood Count 2.64 X10*6/uL (4.20-5.50); Red Cell Distribution Width 15.1 % (11.0-16.0); White Blood Count 17.2 X10*3/uL (4.8-10.8)
[2022-04-14 03:09] LABS: PTT Heparin Drip 158.3 SEC (53-77.9)
[2022-04-14 03:11] LABS: Anion Gap 13 (12-20); Blood Urea Nitrogen 30 mg/dL (9-16); Calcium 8.3 mg/dL (8.4-10.2); Carbon Dioxide 21 mmol/L (22-29); Chloride 103 mmol/L (96-108); Creatinine Clr Calc Pharmacy 61.3; Estimated Glomerular Filt Rate > 60; Glucose Random 114 mg/dL (60-115); Potassium 3.8 mmol/L (3.3-5.1); Sodium 133 mmol/L (135-145)
--- NOTE | 2022-04-14 03:30 | MHC.PIE ---
Patient heparin drip titrated per protocol. H&H dropped during serial labs. Dr Tirado shown trend of labs. Ordered to hold heparin drip in drops more with morning labs. No bleeding noted or significant bruising. Patient resting - denies pain. O2sat drops on room air to 70's, put back on 3 liters nasal cannula - 02sat remains >90%. abd distended, but soft - bandaid intact from paracentesis. Patient on bedpan x2 - 1 assist repos in bed. Alert and oriented - cooperative with care.
--- NOTE | 2022-04-14 03:55 | CONS_ITS ---
DATE OF SERVICE: 04/13/2022 REFERRING PHYSICIAN: Montez Tanner MD REASON FOR CONSULTATION: Esophageal varices and pulmonary emboli. HISTORY OF PRESENT ILLNESS: The patient is a 66-year-old woman, well known to me from recent evaluation. She was admitted to the hospital after being transferred to the emergency room yesterday with hypoxia after endoscopy with banding of esophageal varices. She has a history of previous admission with upper GI bleeding and had banding at that time because of stigmata of recent hemorrhage on endoscopy from her varices. She was seen yesterday for elective endoscopy and postoperatively transferred to the emergency room as above. Evaluation in the emergency room showed multiple distal pulmonary emboli and she was started on anticoagulation. She was admitted to the hospital and is currently undergoing paracentesis, which had been planned as an outpatient. The patient has a history of alcoholic liver disease with cirrhosis, ascites, and esophageal varices as her major decompensations and has been undergoing variceal banding as above. She states she has been abstinent from alcohol for approximately 4 months now and had developed lower extremity edema for which she was started on diuretic therapy. She has been advised multiple times to establish with a primary care provider for overall general medical care, but has not yet done this. PAST MEDICAL HISTORY: 1. Alcoholic cirrhosis with ascites and variceal bleeding. 2. Lower extremity edema. 3. Pulmonary emboli. 4. Gastroesophageal reflux disease. CURRENT MEDICATIONS: Her current medication list is reviewed in the chart. ALLERGIES: THERE ARE NONE REPORTED. FAMILY HISTORY: This is reviewed with the patient and is noncontributory. SOCIAL HISTORY: She does continue to use tobacco. Alcohol use is as above. She denies other substance use. REVIEW OF SYSTEMS: SKIN: No pruritus. HEENT: Negative. CARDIOPULMONARY: She denies shortness of breath or chest pain currently. GASTROINTESTINAL: As above. GENITOURINARY: Negative. NEUROPSYCHIATRIC: Negative. PHYSICAL EXAMINATION: GENERAL: Shows a pleasant female, lying in bed, currently undergoing paracentesis, 5 L have already been withdrawn. VITAL SIGNS: Stable. SKIN: Anicteric. HEENT: Shows no scleral icterus. NECK: Without lymphadenopathy or thyromegaly. LUNGS: Show decreased breath sounds bilaterally. HEART: Shows regular rate and rhythm. S1, S2. No murmur. ABDOMEN: Soft without focal masses. Ascites is improved status post current paracentesis. EXTREMITIES: Show significant edema. LABORATORY DATA: Includes a white blood cell count of 31, hematocrit 34.6, platelet count 141. INR is 1.8. IMAGING STUDIES: Including CT scanning are reviewed. IMPRESSION: 1. Cirrhosis with ascites and esophageal varices. a. At this time, she appears stable with respect to her varices. She did have a small amount of bleeding yesterday at the time of her banding and I would recommend keeping her on IV heparin for the first 24 hours of her admission in case she does need repeat endoscopy because of recurrent upper GI bleeding from varices. After this, she will need oral anticoagulants because of her pulmonary emboli, she will also need followup endoscopy for reassessment of her varices in several weeks. This will be arranged through my office. b. I did discuss with her the need to establish with a primary care provider for care of her general medical problems. She is in the process of doing this. MD HELEN Escalante/ELIZABETH / [phone]
[2022-04-14 04:18] LABS: PTT Heparin Drip 130.7 SEC (53-77.9)
[2022-04-14] MEDS: Pantoprazole Sodium 80 MG in 0.9 % Sodium Chloride 80 ML 10 MG IV ×2 (04:57→15:54)
[2022-04-14 05:33] LABS: PTT Heparin Drip 52.2 SEC (53-77.9)
[2022-04-14 07:42] LABS: Creatinine Clr Calc Pharmacy 62.7; Estimated Glomerular Filt Rate > 60
--- NOTE | 2022-04-14 07:51 | HE.PHANOTE ---
RE Vanco Scr improved to 0.87 today. I am increasing the dose to 1250mg q24h (16.9 mg/kg) resulting in an AUC of 512; trough 13.5. Trough is still scheduled for 04/15 @1900. Thanks Mamadou
[2022-04-14] MEDS: Albumin Human 25 % 100 ML IV ×2 (08:10→11:25)
[2022-04-14] MEDS: 0.9 % Sodium Chloride Flush 3 ML SYRINGE IVFLUSH ×2 (08:11→15:55)
[2022-04-14] MEDS: Midodrine HCl 2.5 MG TABLET PO ×3 (08:11→20:18)
--- NOTE | 2022-04-14 08:55 | PM.GIPN ---
Subjective Subjective Date of Service: 04/14/22 Interval History: feels ok no reported bleeding Critical Care Time (minutes): 0 Physical Exam Vital Signs: Vital Signs: Last Vital Signs Temp 97.9 F 04/14/22 08:00 Pulse 87 04/14/22 08:00 Resp 20 04/14/22 08:00 BP 125/56 L 04/14/22 08:00 Pulse Ox 92 04/14/22 08:00 BMI result Body Mass Index 28.9 Const: General: comfortable GI: Other: abd is less distended after paracentesis Extrem: Other: less edema Objective Data Labs CBC & Chem 7: 04/14/22 02:39 04/14/22 06:38 Microbiology Microbiology Results: Microbiology 04/13/22 Unknown Peritoneal Fluid Gram Stain - Final 04/12/22 18:55 Blood - Venous Blood Culture - Preliminary Prelim: GPC Gram Stain only Prelim: GPR Gram Stain only 04/12/22 18:49 Blood - Venous Blood Culture - Preliminary No growth after 24 hours. Procedures Date of Service Date of Service: 04/14/22 Progress Note: A&P Assessment and plan (1) Cirrhosis: Status: Acute Plan esophageal varices s/p banding no signs of bleeding hct down slightly but stable feels better s/p paracentesis no sbp on fluid cell count. ok to start oral anticoagulation Time Spent With Patient Time: Total time spent is greater than 50% in coordination of care (as documented) at patient's floor/unit and/or counseling patient: Quality Stroke Does the patient have a stroke diagnosis?: No VTE Prior VTE?: No VTE Risk Level:: Medical - moderate - high VTE Device Contraindication: Treatment Not Indicated VTE Drug Contraindication: N/A - Med Ordered
[2022-04-14 08:58] LABS: INTERNATIONAL NORM RATIO 1.7 (0.9-1.1); Prothrombin Time 19.5 SEC (9.9-13.0)
[2022-04-14 10:18] LABS: Hematocrit 27.2 % (37.0-47.0); Mean Corpuscular HGB Conc 33.1 g/dl (31.0-35.0); Mean Corpuscular Hemoglobin 31.9 pg (27.0-33.0); Mean Corpuscular Volume 96.5 fL (80.0-98.0); Mean Platelet Volume 10.3 fL (9.4-12.3); Platelet Count 107 X10*3/uL (160-400); Red Blood Count 2.82 X10*6/uL (4.20-5.50); Red Cell Distribution Width 15.1 % (11.0-16.0); White Blood Count 16.6 X10*3/uL (4.8-10.8)
[2022-04-14 11:20] LABS: Glucose Peritoneal Fluid 112; LDH Peritoneal Fluid 36; Total Protein Peritoneal Fluid 0.9
--- NOTE | 2022-04-14 13:04 | PM.CNPUL ---
History of Present Illness History of Present Illness Consult date: 04/14/22 Chief complaint: PE Narrative: This is an inpatient pulmonary consultation. The patient is a 66-year-old female with a past medical history of alcoholic liver cirrhosis, erosive esophagitis, esophageal varices, history of GI bleed, presented to the hospital today with a chief complaint of shortness of breath.?The Patient presented to the Day surgery for possible EGD; status post EGD patient became very drowsy and hypoxic; patient was subsequently sent to the ER for further evaluation.?In the ED, the patient noted to have coarse breath sounds; acutely hypoxic; placed on non-rebreather initially subsequently transitioned to Oxymizer at 10 L; patient was able to finish full sentences.? ABG showed compensated; CT chest was done which showed pulmonary emboli as well as findings concerning for pneumonia.? Patient also noted to have ascites.? Patient was started on heparin drip.? ER team discussed with Dr. Leger from Gastroenterology who agreed for anticoagulation. The patient is placed on heparin drip for now. She has been having decreasing hemoglobin results. Therefore needs to be monitor closely. She was also found to have nonocclusive clots in her lower extremities. The patient was started on antibiotics. Ultimately underwent a paracentesis which was therapeutic improving her respiratory status significantly. She currently is on 5 L nasal cannula. Review of Systems Constitutional: Constitutional: Reports no additional constitutional complaints, Denies chills, Denies fever(s) and Denies night sweats Eyes: Eyes: Reports no additional eye complaints, Denies blurry vision, Denies change in vision, Denies diplopia, Denies eye discharge, Denies loss of vision and Denies eye pain ENT: Denies dizziness Cardiovascular: Cardiovascular: Reports no additional cardiovascular complaints, Denies chest pain, Denies lightheadedness, Denies Loss of Consciousness and Reports dyspnea Respiratory: Respiratory: Reports no additional respiratory complaints and Reports dyspnea Gastrointestinal: Gastrointestinal: Reports no additional gastrointestinal complaints, Denies abdominal pain, Denies melena, Denies hematochezia, Denies change in bowel habits and Denies change in stool character Genitourinary: Genitourinary: Denies hematuria, Denies urinary frequency, Denies dysuria, Denies urinary incontinence, Denies urinary hesitancy and Denies urinary urgency Musculoskeletal: Musculoskeletal: Reports no additional musculoskeletal complaints, Denies numbness and Denies tingling Neurologic: Denies dizziness, Denies loss of vision, Denies numbness and Denies tingling Psychiatric: Psychiatric: Reports no additional psychiatric complaints Endocrine: Endocrine: Reports no additional endocrine complaints Hematologic/Lymphatic: Hematologic/Lymphatic: Reports no additional hematologic/lymphatic complaints Allergic/Immunologic: Allergic/Immunologic: Reports no additional allergic/immunologic complaints [facility] Past Medical History Medical History (Updated 04/14/22 @ 13:07 by Loy Ramos MD) Acute respiratory failure Erosive esophagitis Esophageal varices Liver cirrhosis No known health problems Family History Family history: reviewed and not pertinent Social History Social History Household Members: Spouse Household Members Other:: 1 Housing: House Do you presently have visiting nurse or other home services: No Alcohol intake: former Patient Tobacco Use Status: Current everyday Tobacco user Tobacco use type: Cigarette Cigarette Packs Per Day: 2.5 Cigarettes Per Day: 4 e-Cigarette/Vaping Use: Never Used Second Hand Smoke Exposure: No service: No Current occupational status: retired [employer] Allergies Allergy/AdvReac Type Severity Reaction Status Date / Time No Known Allergies Allergy Verified 02/14/22 10:38 Active Medications: Current Medications Acetaminophen (Acetaminophen 325 Mg Tablet) 650 mg PO Q6H PRN PRN Reason: Pain, Mild (Pain Scale 1-3) Heparin Sodium (Porcine) (Heparin Sodium,Porcine 5,000 Unit/Ml Vial) 3,000 unit 40 unit/kg (3000 unit) IVPUSH PROTOCOL BOLUS PRN; Protocol PRN Reason: 40 unit/kg - Heparin Protocol Heparin Sodium (Porcine) (Heparin Sodium,Porcine 5,000 Unit/Ml Vial) 5,900 unit 80 unit/kg (5900 unit) IVPUSH PROTOCOL BOLUS PRN; Protocol PRN Reason: 80 unit/kg - Heparin Protocol Hydromorphone HCl (Hydromorphone Hcl 1 Mg/Ml Syringe) 0.5 mg IVPUSH Q4H PRN; Protocol PRN Reason: Pain, Severe (Pain Scale 7-10) Heparin Sodium/Sodium Chloride () 25,000 unit in 250 mls @ 0 mls/hr IVCONT .Q0M MAYO; Protocol Last Titration: 04/14/22 06:41 Dose: 6 units/kg/hr, 4.45 mls/hr Documented by: Pantoprazole Sodium 80 mg/ (Sodium Chloride) 100 mls @ 10 mls/hr IV .Q10H [facility] Last Admin: 04/14/22 04:57 Dose: 8 mg/hr, 10 mls/hr Documented by: Octreotide Acetate 500 mcg/ (Sodium Chloride) 501 mls @ 25.05 mls/hr IVCONT .Q20H [facility] Last Admin: 04/13/22 21:17 Dose: 25 mcg/hr, 25.05 mls/hr Documented by: Vancomycin HCl 1,250 mg/ (Sodium Chloride) 250 mls @ 166.667 mls/hr IV Q24H [facility] Melatonin (Melatonin 3 Mg Tablet) 6 mg PO BEDTIME PRN PRN Reason: Insomnia Midodrine (Midodrine Hcl 2.5 Mg Tablet) 2.5 mg PO TID [facility] Last Admin: 04/14/22 08:11 Dose: 2.5 mg Documented by: Pharmacy Consult (Consult Rx Perform Med Rec) 1 each MISCELLANE ONCE PRN PRN Reason: Consult order Pharmacy Consult (Consult Rx Vancomycin Dosing) 1 each MISCELLANE DAILY PRN PRN Reason: Consult order Senna (Sennosides 8.6 Mg Tablet) 17.2 mg PO BEDTIME PRN PRN Reason: Constipation Sodium Chloride (0.9 % Sodium Chloride Flush 3 Ml Syringe) 3 ml IVFLUSH QSHIFT [facility] Last Admin: 04/14/22 08:11 Dose: 3 ml Documented by: Home Medications Medication Instructions Recorded Confirmed Last Taken Type furosemide 40 mg tablet 1 tab PO DAILY 04/13/22 04/13/22 04/12/22 History spironolactone 100 mg tablet 1 tab PO DAILY 04/13/22 04/13/22 04/12/22 History Physical Exam Vital Signs: Vital Signs: Last Vital Signs Temp 97.7 F 04/14/22 11:54 Pulse 84 04/14/22 11:54 Resp 20 04/14/22 11:54 BP 120/59 L 04/14/22 11:54 Pulse Ox 93 04/14/22 11:54 BMI result Body Mass Index 28.9 Const: General: alert and ill appearing Nutritional Appearance: underweight Neck: Neck: Yes normal visual inspection, Yes full ROM and Yes no lymphadenopathy Chest: Chest palpation & inspection: normal inspection of the chest Resp: Auscultation: diminished lung sounds Cardio: Rate: regular rate Rhythm: regular rhythm Heart sounds: S1 normal heart sound present and S2 normal heart sound present GI: Palpation (GI): Soft to palpation and nontender Auscultation: normal bowel sounds Skin: General skin exam: rashes and/or lesions noted Results Laboratory Findings CBC and BMP: 04/14/22 06:38 04/14/22 06:38 ABG, PT/INR, D-dimer: PT/INR, D-dimer PT 19.5 SEC (9.9-13.0) H 04/14/22 08:22 INR 1.7 (0.9-1.1) H 04/14/22 08:22 Abnormal lab findings: Abnormal Labs 04/12/22 04/12/22 04/12/22 16:26 16:26 16:27 WBC 15.0 H RBC 4.00 L Hgb Hct Plt Count 124 L Immature Gran % (Auto) 0.9 H Neut % (Auto) 82.2 H Lymph % (Auto) 8.7 L [place]ancock # (Auto) Abs Immat Gran (auto) 0.13 H Absolute Neuts (auto) 12.3 H PT INR aPTT Heparin Protocol Sodium 132 L Carbon Dioxide BUN 24 H Lactic Acid Lactic Acid F/U @ 2Hr Calcium Total Bilirubin 2.3 H AST 56 H ALT 35 H Alkaline Phosphatase 124 H Ammonia Lactate Dehydrogenase Troponin I High Sens 20.5 H Albumin 2.4 L 04/12/22 04/12/22 04/12/22 18:50 19:54 22:44 WBC RBC Hgb Hct Plt Count Immature Gran % (Auto) Neut % (Auto) Lymph % (Auto) Hancock # (Auto) Abs Immat Gran (auto) Absolute Neuts (auto) PT 15.6 H INR 1.4 H aPTT Heparin Protocol Sodium Carbon Dioxide BUN Lactic Acid 5.1 H* Lactic Acid F/U @ 2Hr 6.8 H* Calcium Total Bilirubin AST ALT Alkaline Phosphatase Ammonia Lactate Dehydrogenase Troponin I High Sens Albumin 04/12/22 04/12/22 04/13/22 22:44 22:44 00:37 WBC RBC Hgb Hct Plt Count Immature Gran % (Auto) Neut % (Auto) Lymph % (Auto) Hancock # (Auto) Abs Immat Gran (auto) Absolute Neuts (auto) PT INR aPTT Heparin Protocol > 200.0 H* Sodium Carbon Dioxide BUN Lactic Acid Lactic Acid F/U @ 2Hr Calcium Total Bilirubin AST ALT Alkaline Phosphatase Ammonia 60 H Lactate Dehydrogenase Troponin I High Sens 33.0 H D Albumin 04/13/22 04/13/22 04/13/22 00:37 02:02 02:02 WBC 31.2 H* RBC 3.63 L Hgb 11.6 L Hct 34.6 L Plt Count 141 L Immature Gran % (Auto) 0.8 H Neut % (Auto) 87.6 H Lymph % (Auto) 4.7 L Hancock # (Auto) 2.1 H Abs Immat Gran (auto) 0.24 H Absolute Neuts (auto) 27.4 H PT INR aPTT Heparin Protocol > 200.0 H* Sodium Carbon Dioxide BUN Lactic Acid 4.7 H* Lactic Acid F/U @ 2Hr Calcium Total Bilirubin AST ALT Alkaline Phosphatase Ammonia Lactate Dehydrogenase Troponin I High Sens Albumin 04/13/22 04/13/22 04/13/22 03:15 03:15 04:48 WBC RBC Hgb Hct Plt Count Immature Gran % (Auto) Neut % (Auto) Lymph % (Auto) Hancock # (Auto) Abs Immat Gran (auto) Absolute Neuts (auto) PT 20.5 H INR 1.8 H aPTT Heparin Protocol > 200.0 H* Sodium Carbon Dioxide BUN Lactic Acid Lactic Acid F/U @ 2Hr 4.9 H* Calcium Total Bilirubin AST ALT Alkaline Phosphatase Ammonia Lactate Dehydrogenase Troponin I High Sens Albumin 04/13/22 04/13/22 04/13/22 04:48 04:48 06:23 WBC 29.2 H RBC 3.37 L Hgb 11.0 L Hct 32.6 L Plt Count 132 L Immature Gran % (Auto) 0.6 H Neut % (Auto) 85.3 H Lymph % (Auto) 7.0 L Hancock # (Auto) 2.0 H Abs Immat Gran (auto) 0.18 H Absolute Neuts (auto) 24.9 H PT INR aPTT Heparin Protocol 44.1 L D Sodium 132 L Carbon Dioxide 21 L BUN 27 H Lactic Acid Lactic Acid F/U @ 2Hr Calcium 8.1 L Total Bilirubin AST ALT Alkaline Phosphatase Ammonia Lactate Dehydrogenase 229 H Troponin I High Sens Albumin 04/13/22 04/13/22 04/14/22 16:58 21:11 02:39 WBC 17.2 H RBC 2.64 L D Hgb 9.8 L 8.5 L 8.6 L Hct 29.4 L 25.4 L 24.9 L Plt Count 101 L Immature Gran % (Auto) Neut % (Auto) Lymph % (Auto) Hancock # (Auto) Abs Immat Gran (auto) Absolute Neuts (auto) PT INR aPTT Heparin Protocol Sodium Carbon Dioxide BUN Lactic Acid Lactic Acid F/U @ 2Hr Calcium Total Bilirubin AST ALT Alkaline Phosphatase Ammonia Lactate Dehydrogenase Troponin I High Sens Albumin 04/14/22 04/14/22 04/14/22 02:39 02:39 03:51 WBC RBC Hgb Hct Plt Count Immature Gran % (Auto) Neut % (Auto) Lymph % (Auto) Hancock # (Auto) Abs Immat Gran (auto) Absolute Neuts (auto) PT INR aPTT Heparin Protocol 158.3 H* D 130.7 H* Sodium 133 L Carbon Dioxide 21 L BUN 30 H Lactic Acid Lactic Acid F/U @ 2Hr Calcium 8.3 L Total Bilirubin AST ALT Alkaline Phosphatase Ammonia Lactate Dehydrogenase Troponin I High Sens Albumin 04/14/22 04/14/22 04/14/22 05:09 06:38 08:22 WBC 16.6 H RBC 2.82 L Hgb 9.0 L Hct 27.2 L Plt Count 107 L Immature Gran % (Auto) Neut % (Auto) Lymph % (Auto) [place]ancock # (Auto) Abs Immat Gran (auto) Absolute Neuts (auto) PT 19.5 H INR 1.7 H aPTT Heparin Protocol 52.2 L D Sodium Carbon Dioxide BUN Lactic Acid Lactic Acid F/U @ 2Hr Calcium Total Bilirubin AST ALT Alkaline Phosphatase Ammonia Lactate Dehydrogenase Troponin I High Sens Albumin Microbiology: Microbiology 04/13/22 Unknown Peritoneal Fluid Gram Stain - Final 04/13/22 Unknown Peritoneal Fluid Anaerobic Culture - Preliminary No growth to date. 04/13/22 Unknown Peritoneal Fluid Body Fluid Culture - Preliminary No growth to date. 04/12/22 18:55 Blood - Venous Blood Culture - Preliminary Gram positive cocci Bacillus species 04/12/22 18:49 Blood - Venous Blood Culture - Preliminary No growth after 24 hours. Assessment and Plan (1) Pulmonary emboli: Status: Acute (2) PNA (pneumonia): Status: Acute (3) Acute respiratory failure: Status: Acute Plan Continue heparin gtt If Hb drops consider IVC filter Continue abx as per ID Continue oxygen supplementation Procedures Date of Service Date of Service: 04/14/22
--- NOTE | 2022-04-14 13:29 | MHC.CLN ---
RE: CONSULT RECOMMEND ADDING ENSURE BID R/T POOR PO SUPP TO PROVIDE 700KCALS, 40G PROTEIN MONITOR PO INTAKE CLOSELY
[2022-04-14 13:38] LABS: PTT Heparin Drip 69.9 SEC (53-77.9)
--- NOTE | 2022-04-14 15:20 | HO.PM.IMPN ---
Subjective Subjective Date of Service: 04/14/22 Interval History: Hypoxemic respiratory failure secondary to pneumonia as well as pulmonary embolism, liver disease with ascites. Esophageal varices Review of Systems Denies any abdominal pain or nausea or vomiting or fever or chills. Still shortness of breath is slightly better than this morning, denies any chest pain. no active bleed as per patient so far. Physical Exam Vital Signs: Vital Signs: Last Vital Signs Temp 98.6 F 04/14/22 15:07 Pulse 101 H 04/14/22 15:07 Resp 18 04/14/22 15:07 BP 142/72 H 04/14/22 15:07 Pulse Ox 88 L 04/14/22 15:07 BMI result Body Mass Index 28.9 Appearance: Alert.? Oriented X3.? cvs: rrr, [id number] , no murmur res: air entry fair ,slightly diminshed at bases. abd: significant ascitis? ,nt, bs present. ext pulses present , no cyanosis. neuro: axo3 , nonfocal. Objective Data Active Medications Acetaminophen (Acetaminophen 325 Mg Tablet) 650 mg PO Q6H PRN PRN Reason: Pain, Mild (Pain Scale 1-3) Heparin Sodium (Porcine) (Heparin Sodium,Porcine 5,000 Unit/Ml Vial) 3,000 unit 40 unit/kg (3000 unit) IVPUSH PROTOCOL BOLUS PRN; Protocol PRN Reason: 40 unit/kg - Heparin Protocol Heparin Sodium (Porcine) (Heparin Sodium,Porcine 5,000 Unit/Ml Vial) 5,900 unit 80 unit/kg (5900 unit) IVPUSH PROTOCOL BOLUS PRN; Protocol PRN Reason: 80 unit/kg - Heparin Protocol Hydromorphone HCl (Hydromorphone Hcl 1 Mg/Ml Syringe) 0.5 mg IVPUSH Q4H PRN; Protocol PRN Reason: Pain, Severe (Pain Scale 7-10) Heparin Sodium/Sodium Chloride () 25,000 unit in 250 mls @ 0 mls/hr IVCONT .Q0M [facility]; Protocol Last Titration: 04/14/22 06:41 Dose: 6 units/kg/hr, 4.45 mls/hr Documented by: SINTIA Cosigned by: WATSON Pantoprazole Sodium 80 mg/ (Sodium Chloride) 100 mls @ 10 mls/hr IV .Q10H [facility] Last Admin: 04/14/22 04:57 Dose: 8 mg/hr, 10 mls/hr Documented by: SINTIA Octreotide Acetate 500 mcg/ (Sodium Chloride) 501 mls @ 25.05 mls/hr IVCONT .Q20H [facility] Last Admin: 04/13/22 21:17 Dose: 25 mcg/hr, 25.05 mls/hr Documented by: SINTIA Vancomycin HCl 1,250 mg/ (Sodium Chloride) 250 mls @ 166.667 mls/hr IV Q24H [facility] Melatonin (Melatonin 3 Mg Tablet) 6 mg PO BEDTIME PRN PRN Reason: Insomnia Midodrine (Midodrine Hcl 2.5 Mg Tablet) 2.5 mg PO TID [facility] Last Admin: 04/14/22 08:11 Dose: 2.5 mg Documented by: LIBBY Pharmacy Consult (Consult Rx Perform Med Rec) 1 each MISCELLANE ONCE PRN PRN Reason: Consult order Pharmacy Consult (Consult Rx Vancomycin Dosing) 1 each MISCELLANE DAILY PRN PRN Reason: Consult order Senna (Sennosides 8.6 Mg Tablet) 17.2 mg PO BEDTIME PRN PRN Reason: Constipation Sodium Chloride (0.9 % Sodium Chloride Flush 3 Ml Syringe) 3 ml IVFLUSH QSHIFT [facility] Last Admin: 04/14/22 08:11 Dose: 3 ml Documented by: LIBBY Labs CBC & Chem 7: 04/14/22 06:38 04/14/22 06:38 Labs: Laboratory Results - last 24 hr 04/13/22 04/13/22 04/14/22 15:30 15:30 02:39 MCV 94.3 MCH 32.6 MCHC 34.5 RDW 15.1 Plt Count 101 L MPV 10.0 Absolute Nucleated RBC 0.000 Nucleated RBC % (auto) 0.0 PT INR aPTT Heparin Protocol Anion Gap Estim Creat Clear Calc Estimated GFR Random Glucose Calcium Peritoneal WBC 0.122 Peritoneal RBC < 0.002 Periton Neutrophils 37 Periton Lymphocytes 25 Peritoneal Monocytes 35 Peritoneal Other Cells 3 Peritoneal Tot Protein 0.9 Peritoneal LDH 36 Peritoneal Glucose 112 Blood Type Antibody Screen 04/14/22 04/14/22 04/14/22 02:39 02:39 03:51 MCV MCH MCHC RDW Plt Count MPV Absolute Nucleated RBC Nucleated RBC % (auto) PT INR aPTT Heparin Protocol 158.3 H* D 130.7 H* Anion Gap 13 Estim Creat Clear Calc 61.3 Estimated GFR > 60 Random Glucose 114 Calcium 8.3 L Peritoneal WBC Peritoneal RBC Periton Neutrophils Periton Lymphocytes Peritoneal Monocytes Peritoneal Other Cells Peritoneal Tot Protein Peritoneal LDH Peritoneal Glucose Blood Type Antibody Screen 04/14/22 04/14/22 04/14/22 05:09 06:38 06:38 MCV MCH MCHC RDW Plt Count MPV Absolute Nucleated RBC Nucleated RBC % (auto) PT INR aPTT Heparin Protocol 52.2 L D Anion Gap Estim Creat Clear Calc 62.7 Estimated GFR > 60 Random Glucose Calcium Peritoneal WBC Peritoneal RBC Periton Neutrophils Periton Lymphocytes Peritoneal Monocytes Peritoneal Other Cells Peritoneal Tot Protein Peritoneal LDH Peritoneal Glucose Blood Type A Positive Antibody Screen NEGATIVE 04/14/22 04/14/22 04/14/22 06:38 08:22 12:45 MCV 96.5 MCH 31.9 MCHC 33.1 RDW 15.1 Plt Count 107 L MPV 10.3 Absolute Nucleated RBC 0.000 Nucleated RBC % (auto) 0.0 PT 19.5 H INR 1.7 H aPTT Heparin Protocol 69.9 D Anion Gap Estim Creat Clear Calc Estimated GFR Random Glucose Calcium Peritoneal WBC Peritoneal RBC Periton Neutrophils Periton Lymphocytes Peritoneal Monocytes Peritoneal Other Cells Peritoneal Tot Protein Peritoneal LDH Peritoneal Glucose Blood Type Antibody Screen Microbiology Microbiology Results: Microbiology 04/13/22 Unknown Gram Stain - Final Peritoneal Fluid Anaerobic Culture - Preliminary No growth to date. Body Fluid Culture - Preliminary No growth to date. 04/12/22 18:55 Blood Culture - Preliminary Blood - Venous Gram positive cocci Bacillus species 04/12/22 18:49 Blood Culture - Preliminary Blood - Venous No growth after 24 hours. Assessment and Plan (1) Acute respiratory failure: Status: Acute (2) Cirrhosis: Status: Acute (3) Ascites: Status: Acute (4) Pulmonary emboli: Status: Acute (5) PNA (pneumonia): Status: Acute Plan 66-year-old female with a past medical history of alcoholic liver cirrhosis, erosive esophagitis, esophageal varices, history of GI bleed, presented to the hospital today with a chief complaint of shortness of breath.? Will Noted to have following conditions: Acute hypoxic respiratory failure:? Multifactorial: pulmonary embolism/pneumonia, ascitis also pushing against the chest.? sob seems improving , says that still difficult to breathe due to the significant ascites. Patient on supplemental oxygen DuoNebs p.r.n. Blood culture -gram postive cocci and bacillius sp, Leukocytosis trending down Give the patient on IV vancomycin , moniter Vanco trough. Id evaluation noted, ID follow-up pending. Acute pulmonary embolism:??Patient noted to have multiple pulmonary emboli.? Troponins 33 probably related to pulmonary embolism/pneumonia. ?US/US venous duplex : Nonocclusive deep venous thrombus in the right popliteal vein. No extension centrally into the femoral or common femoral vein. ? No evidence of deep venous arms in the left lower extremity however the bilateral peroneal veins were not identified. Echo : Conclusions: - The left ventricular systolic function is normal.? The ? calculated ejection fraction is 67% by biplane method. ? - No obvious valvular pathology seen on this study.? ? Started on heparin drip, moniter pt/ptt Leukocytosis trending down Hematology and Pulmonary evaluation pending. Severe lactic acidosis:? Probably secondary to liver disease, trending down patient is clinically improving so will stop trending lactic acid. stop fluids History of alcoholic liver cirrhosis/ascites: Patient has hypoalbuminemia possible related to poor oral intake as well as liver disease. Coagulopathy secondary to liver disease not due to sepsis( inr slightly better than yesterday). LFTs actually trending down than before Patient said she quit alcohol 4 months ago Encouraged for p.o. intake. s/pparacentesis:less likely infectious,cultures pending , cytology added. Monitor liver function, renal function and electrolyte closely, PT INR. ?Patient has firm ascites? :? Status post paracentesis. ascits fluid lab noted History of esophageal varices/erosive esophagitis:? Continue on PPI.? Continue iv heparin moniter h/h stable around 9 range anemia normocytic : d/w Gi -moniter cbc daily since h/h stable around 9. Discussed with Dr. Vaz: Continue IV heparin. If patient started bleedin-repeat H&H that time. Otherwise monitor H and H daily. If started bleeding-will hold heparin, call GI. May need filter for pulmonary embolism in that scenario. DVT prophylaxis: Patient on heparin drip inpatient need:pneumonia,pulm embolism, esophageal varices . Quality Stroke Does the patient have a stroke diagnosis?: No VTE Prior VTE?: No VTE Risk Level:: Medical - moderate - high VTE Device Contraindication: Treatment Not Indicated VTE Drug Contraindication: N/A - Med Ordered
[2022-04-14] MEDS: Octreotide Acetate 500 MCG in 0.9 % Sodium Chloride 500 ML 25.05 MCG IVCONT (15:52)
--- NOTE | 2022-04-14 16:34 | PC.NURSE ---
Patient complained of feeling full in abdomen. Voided 3 x's small amounts this shift. [employer] bladder scanned for >800. ? If ascites or urine in bladder. Dr. Hendricks notified and ordered straight cath x 1.
--- NOTE | 2022-04-14 18:49 | PC.NURSE ---
1625- Pt inc urine, voided 50ml on bedpan, bladder scanned for >999ml. Straight cathed per MD order for only 50ml. Dr Dietz notified, will continue to monitor
[2022-04-14 19:40] LABS: PTT Heparin Drip 62.3 SEC (53-77.9)
[2022-04-14] MEDS: Heparin Sodium,Porcine/1/2NS 25,000 UNIT/250 ML IV.SOLN 4.45 UNIT IVCONT (20:14)
[2022-04-14] MEDS: vancomycin HCL 1,250 MG in 0.9 % Sodium Chloride 250 ML 166.67 MG IV (20:18)
[2022-04-15] VITALS (8 sets, daily range): BP systolic 104–152; BP diastolic 56–81; PULSE 86–97; RESP 17–24; TEMP 36.7–37.1; O2SAT 91–95
[2022-04-15] MEDS: 0.9 % Sodium Chloride Flush 3 ML SYRINGE IVFLUSH ×2 (00:53→20:34)
[2022-04-15] MEDS: Pantoprazole Sodium 80 MG in 0.9 % Sodium Chloride 80 ML 10 MG IV ×3 (02:41→20:33)
[2022-04-15 06:49] LABS: INTERNATIONAL NORM RATIO 1.6 (0.9-1.1); Prothrombin Time 18.4 SEC (9.9-13.0)
[2022-04-15 06:52] LABS: PTT Heparin Drip 64.9 SEC (53-77.9)
[2022-04-15 06:59] LABS: Creatinine Clr Calc Pharmacy 69.3; Estimated Glomerular Filt Rate > 60
[2022-04-15 07:00] LABS: Anion Gap 11 (12-20); Blood Urea Nitrogen 21 mg/dL (9-16); Calcium 8.4 mg/dL (8.4-10.2); Carbon Dioxide 22 mmol/L (22-29); Chloride 108 mmol/L (96-108); Creatinine Clr Calc Pharmacy 69.3; Estimated Glomerular Filt Rate > 60; Glucose Random 135 mg/dL (60-115); Potassium 4.4 mmol/L (3.3-5.1); Sodium 137 mmol/L (135-145)
[2022-04-15 07:05] LABS: Hematocrit 28.1 % (37.0-47.0); Hemoglobin 9.1 g/dl (12.0-16.0); Mean Corpuscular HGB Conc 32.4 g/dl (31.0-35.0); Mean Corpuscular Hemoglobin 31.5 pg (27.0-33.0); Mean Corpuscular Volume 97.2 fL (80.0-98.0); Mean Platelet Volume 10.3 fL (9.4-12.3); Platelet Count 120 X10*3/uL (160-400); Red Blood Count 2.89 X10*6/uL (4.20-5.50); Red Cell Distribution Width 15.3 % (11.0-16.0); White Blood Count 15.7 X10*3/uL (4.8-10.8)
--- NOTE | 2022-04-15 08:00 | HO.PM.IMPN ---
Subjective Subjective Date of Service: 04/15/22 Interval History: hypoxia , anemia.liver disease with ascites. Esophageal varices Review of Systems Feels is general slightly weak than yesterday, Oxygen demand slowly going up. Denies any chest pain or nausea or vomiting or abdominal pain,mild ascites as well as leg swelling. Physical Exam Vital Signs: Vital Signs: Last Vital Signs Temp 98.4 F 04/15/22 07:39 Pulse 86 04/15/22 07:39 Resp 18 04/15/22 07:39 BP 140/65 H 04/15/22 07:39 Pulse Ox 94 04/15/22 07:39 BMI result Body Mass Index 28.9 Appearance: Alert.? Oriented X3.? cvs: rrr, [id number] , no murmur res: air entry fair ,slightly diminshed at bases. abd: significant ascitis? ,nt, bs present. ext pulses present , no cyanosis. neuro: axo3 , nonfocal. Objective Data Active Medications Acetaminophen (Acetaminophen 325 Mg Tablet) 650 mg PO Q6H PRN PRN Reason: Pain, Mild (Pain Scale 1-3) Heparin Sodium (Porcine) (Heparin Sodium,Porcine 5,000 Unit/Ml Vial) 3,000 unit 40 unit/kg (3000 unit) IVPUSH PROTOCOL BOLUS PRN; Protocol PRN Reason: 40 unit/kg - Heparin Protocol Heparin Sodium (Porcine) (Heparin Sodium,Porcine 5,000 Unit/Ml Vial) 5,900 unit 80 unit/kg (5900 unit) IVPUSH PROTOCOL BOLUS PRN; Protocol PRN Reason: 80 unit/kg - Heparin Protocol Hydromorphone HCl (Hydromorphone Hcl 1 Mg/Ml Syringe) 0.5 mg IVPUSH Q4H PRN; Protocol PRN Reason: Pain, Severe (Pain Scale 7-10) Heparin Sodium/Sodium Chloride () 25,000 unit in 250 mls @ 0 mls/hr IVCONT .Q0M [facility]; Protocol Last Admin: 04/14/22 20:14 Dose: 6 units/kg/hr, 4.45 mls/hr Documented by: AUNDREA Cosigned by: DAPHNE Pantoprazole Sodium 80 mg/ (Sodium Chloride) 100 mls @ 10 mls/hr IV .Q10H [facility] Last Admin: 04/15/22 02:41 Dose: 8 mg/hr, 10 mls/hr Documented by: MIRZA Octreotide Acetate 500 mcg/ (Sodium Chloride) 501 mls @ 25.05 mls/hr IVCONT .Q20H [facility] Last Admin: 04/14/22 15:52 Dose: 25 mcg/hr, 25.05 mls/hr Documented by: TAQUERIA Vancomycin HCl 1,250 mg/ (Sodium Chloride) 250 mls @ 166.667 mls/hr IV Q24H [facility] Last Infusion: 04/14/22 22:41 Dose: 0 mls/hr Documented by: AUNDREA Melatonin (Melatonin 3 Mg Tablet) 6 mg PO BEDTIME PRN PRN Reason: Insomnia Midodrine (Midodrine Hcl 2.5 Mg Tablet) 2.5 mg PO TID [facility] Last Admin: 04/14/22 20:18 Dose: 2.5 mg Documented by: AUNDREA Pharmacy Consult (Consult Rx Perform Med Rec) 1 each MISCELLANE ONCE PRN PRN Reason: Consult order Pharmacy Consult (Consult Rx Vancomycin Dosing) 1 each MISCELLANE DAILY PRN PRN Reason: Consult order Senna (Sennosides 8.6 Mg Tablet) 17.2 mg PO BEDTIME PRN PRN Reason: Constipation Sodium Chloride (0.9 % Sodium Chloride Flush 3 Ml Syringe) 3 ml IVFLUSH QSHIFT [facility] Last Admin: 04/15/22 00:53 Dose: 3 ml Documented by: MIRZA Labs CBC & Chem 7: 04/15/22 06:09 04/15/22 06:09 Labs: Laboratory Results - last 24 hr 04/13/22 04/14/22 04/14/22 15:30 06:38 06:38 MCV 96.5 MCH 31.9 MCHC 33.1 RDW 15.1 Plt Count 107 L MPV 10.3 Absolute Nucleated RBC 0.000 Nucleated RBC % (auto) 0.0 PT INR aPTT Heparin Protocol Anion Gap Estim Creat Clear Calc Estimated GFR Random Glucose Calcium Peritoneal Tot Protein 0.9 Peritoneal LDH 36 Peritoneal Glucose 112 Blood Type A Positive Antibody Screen NEGATIVE 04/14/22 04/14/22 04/14/22 08:22 12:45 19:18 MCV MCH MCHC RDW Plt Count MPV Absolute Nucleated RBC Nucleated RBC % (auto) PT 19.5 H INR 1.7 H aPTT Heparin Protocol 69.9 D 62.3 Anion Gap Estim Creat Clear Calc Estimated GFR Random Glucose Calcium Peritoneal Tot Protein Peritoneal LDH Peritoneal Glucose Blood Type Antibody Screen 04/15/22 04/15/22 04/15/22 06:09 06:09 06:09 MCV 97.2 MCH 31.5 MCHC 32.4 RDW 15.3 Plt Count 120 L MPV 10.3 Absolute Nucleated RBC 0.000 Nucleated RBC % (auto) 0.0 PT INR aPTT Heparin Protocol 64.9 Anion Gap Estim Creat Clear Calc 69.3 Estimated GFR > 60 Random Glucose Calcium Peritoneal Tot Protein Peritoneal LDH Peritoneal Glucose Blood Type Antibody Screen 04/15/22 04/15/22 06:09 06:09 MCV MCH MCHC RDW Plt Count MPV Absolute Nucleated RBC Nucleated RBC % (auto) PT 18.4 H INR 1.6 H aPTT Heparin Protocol Anion Gap 11 L Estim Creat Clear Calc 69.3 Estimated GFR > 60 Random Glucose 135 H Calcium 8.4 Peritoneal Tot Protein Peritoneal LDH Peritoneal Glucose Blood Type Antibody Screen Microbiology Microbiology Results: Microbiology 04/12/22 18:49 Blood Culture - Preliminary Blood - Venous No growth after 48 hours. 04/13/22 Unknown Gram Stain - Final Peritoneal Fluid Anaerobic Culture - Preliminary No growth to date. Body Fluid Culture - Preliminary No growth to date. 04/12/22 18:55 Blood Culture - Preliminary Blood - Venous Gram positive cocci Bacillus species Assessment and Plan (1) Pneumonitis: Status: Acute (2) Acute respiratory failure: Status: Acute (3) Cirrhosis: Status: Acute (4) Ascites: Status: Acute Plan 66-year-old female with a past medical history of alcoholic liver cirrhosis, erosive esophagitis, esophageal varices, history of GI bleed, presented to the hospital today with a chief complaint of shortness of breath.? Will Noted to have following conditions: Acute hypoxic respiratory failure:? Multifactorial: pulmonary embolism/pneumonia, ascitis also pushing against the chest.? sob seems improving , says that still difficult to breathe due to the significant ascites. Patient on supplemental oxygen DuoNebs p.r.n. Blood culture -gram postive cocci and bacillius sp, Leukocytosis trending down Give the patient on IV vancomycin , moniter Vanco trough. Id evaluation noted, ID follow-up pending. Acute pulmonary embolism:??Patient noted to have multiple pulmonary emboli.? Troponins 33 probably related to pulmonary embolism/pneumonia. ?US/US venous duplex : Nonocclusive deep venous thrombus in the right popliteal vein. No extension centrally into the femoral or common femoral vein. ? No evidence of deep venous arms in the left lower extremity however the bilateral peroneal veins were not identified. Echo : Conclusions: - The left ventricular systolic function is normal.? The ? calculated ejection fraction is 67% by biplane method. ? - No obvious valvular pathology seen on this study.? ? Started on heparin drip, moniter pt/ptt Leukocytosis trending down VBG and chest x-ray from this morning reviewed with Pulmonary Hematology and Pulmonary evaluation-Added zosyn /vanco . Severe lactic acidosis:? Probably secondary to liver disease, trending down patient is clinically improving so will stop trending lactic acid. stop fluids History of alcoholic liver cirrhosis/ascites: Patient has hypoalbuminemia possible related to poor oral intake as well as liver disease. Coagulopathy secondary to liver disease not due to sepsis( inr slightly better than yesterday). LFTs actually trending down than before Patient said she quit alcohol 4 months ago Encouraged for p.o. intake. s/pparacentesis:less likely infectious,cultures pending , cytology added. Monitor liver function, renal function and electrolyte closely, PT INR. ?Patient has firm ascites? :? Status post paracentesis. ascits fluid lab noted History of esophageal varices/erosive esophagitis:? Continue on PPI.? Continue iv heparin moniter h/h stable around 9 range anemia normocytic : d/w Gi -moniter cbc daily since h/h stable around 9. Discussed with Dr. Vaz:? Continue IV heparin. If patient started bleedin-repeat H&H that time.? Otherwise monitor H and H daily. If started bleeding-will hold heparin, call GI.? May need filter for pulmonary embolism in that scenario. DVT prophylaxis: Patient on heparin drip inpatient need:pneumonia,pulm embolism, esophageal varices . Quality Stroke Does the patient have a stroke diagnosis?: No VTE Prior VTE?: No VTE Risk Level:: Medical - moderate - high VTE Device Contraindication: Treatment Not Indicated VTE Drug Contraindication: N/A - Med Ordered
[2022-04-15 09:55] LABS: Venous Blood Gas Refer to POC result
[2022-04-15 09:56] LABS: VBG Base Excess 3.3 mmol/L; VBG HCO3 29 mmol/L (22-26); VBG pCO2 53 mmHg; VBG pH 7.34 (7.32-7.43); VBG pO2 140 mmHg
[2022-04-15] MEDS: methylPREDNISolone Sod Succ 40 MG/ML VIAL IVPUSH (10:29)
[2022-04-15] MEDS: Furosemide 40 MG TABLET PO (10:34)
[2022-04-15] MEDS: Midodrine HCl 2.5 MG TABLET PO ×2 (10:34→20:40)
[2022-04-15] MEDS: Octreotide Acetate 500 MCG in 0.9 % Sodium Chloride 500 ML 25.05 MCG IVCONT (10:41)
[2022-04-15] MEDS: Albuterol/Iprat 2.5/0.5MG 3 ML AMPUL.NEB INHALE ×3 (10:41→22:42)
--- NOTE | 2022-04-15 12:38 | P.PNPL_ITS ---
Subjective Subjective Date of Service: 04/15/22 Interval history: The patient was seen on exam. Has been developing worsening shortness of breath and hypoxia. She had a repeat chest x-ray demonstrating evidence of ground- glass opacities bilaterally with hazy fluffy opacities suggesting of pneumonitis. She is also having some rhonchi and wheezing on examination. Will treat her for inflammatory process. She is already on broad-spectrum antibiotics. I am concerned for the possibility of aspiration pneumonitis which could develop into ARDS. Objective Data Labs CBC & Chem 7: 04/15/22 06:09 04/15/22 06:09 Labs: Laboratory Results - last 24 hr 04/14/22 04/14/22 04/15/22 12:45 19:18 06:09 WBC RBC Hgb Hct MCV MCH MCHC RDW Plt Count MPV Absolute Nucleated RBC Nucleated RBC % (auto) PT INR aPTT Heparin Protocol 69.9 D 62.3 VBG pH VBG pCO2 VBG pO2 VBG HCO3 VBG O2 Saturation VBG Base Excess Sodium Potassium Chloride Carbon Dioxide Anion Gap BUN Creatinine 0.77 Estim Creat Clear Calc 69.3 Estimated GFR > 60 Random Glucose Calcium 04/15/22 04/15/22 04/15/22 06:09 06:09 06:09 WBC 15.7 H RBC 2.89 L Hgb 9.1 L Hct 28.1 L MCV 97.2 MCH 31.5 MCHC 32.4 RDW 15.3 Plt Count 120 L MPV 10.3 Absolute Nucleated RBC 0.000 Nucleated RBC % (auto) 0.0 PT INR aPTT Heparin Protocol 64.9 VBG pH VBG pCO2 VBG pO2 VBG HCO3 VBG O2 Saturation VBG Base Excess Sodium 137 Potassium 4.4 Chloride 108 Carbon Dioxide 22 Anion Gap 11 L BUN 21 H Creatinine 0.77 Estim Creat Clear Calc 69.3 Estimated GFR > 60 Random Glucose 135 H Calcium 8.4 04/15/22 04/15/22 06:09 09:49 WBC RBC Hgb Hct MCV MCH MCHC RDW Plt Count MPV Absolute Nucleated RBC Nucleated RBC % (auto) PT 18.4 H INR 1.6 H aPTT Heparin Protocol VBG pH 7.34 VBG pCO2 53 VBG pO2 140 VBG HCO3 29 H VBG O2 Saturation 100.0 VBG Base Excess 3.3 Sodium Potassium Chloride Carbon Dioxide Anion Gap BUN Creatinine Estim Creat Clear Calc Estimated GFR Random Glucose Calcium Microbiology Microbiology Results: Microbiology 04/12/22 18:55 Blood - Venous Blood Culture - Final Coag negative Staphylococcus Bacillus species 04/13/22 Unknown Peritoneal Fluid Gram Stain - Final 04/13/22 Unknown Peritoneal Fluid Anaerobic Culture - Preliminary No growth to date. 04/13/22 Unknown Peritoneal Fluid Body Fluid Culture - Preliminary No growth to date. 04/12/22 18:49 Blood - Venous Blood Culture - Preliminary No growth after 48 hours. Review of Systems Constitutional: Reports no additional constitutional complaints, Denies chills, Denies fever(s) and Denies night sweats Eyes: Reports no additional eye complaints, Denies blurry vision, Denies change in vision, Denies diplopia, Denies eye discharge, Denies loss of vision and De nies eye pain Denies dizziness Cardiovascular: Reports no additional cardiovascular complaints, Denies chest pain, Denies lightheadedness, Denies Loss of Consciousness and Reports dyspnea Respiratory: Reports dyspnea Gastrointestinal: Reports no additional gastrointestinal complaints, Denies abdominal pain, Denies melena, Denies hematochezia, Denies change in bowel habits and Denies change in stool character Genitourinary: Denies hematuria, Denies urinary frequency, Denies dysuria, Denies urinary incontinence, Denies urinary hesitancy and Denies urinary urgency Musculoskeletal: Reports no additional musculoskeletal complaints, Denies numbness and Denies tingling Denies dizziness, Denies loss of vision, Denies numbness and Denies tingling Psychiatric: Reports no additional psychiatric complaints Endocrine: Reports no additional endocrine complaints Hematologic/Lymphatic: Reports no additional hematologic/lymphatic complaints Allergic/Immunologic: Reports no additional allergic/immunologic complaints Physical Exam Vital Signs: Vital Signs: Last Vital Signs Temp 98.0 F 04/15/22 11:50 Pulse 88 04/15/22 11:50 Resp 20 04/15/22 11:50 BP 128/64 04/15/22 11:50 Pulse Ox 94 04/15/22 11:50 BMI result Body Mass Index 28.9 Const: General: ill appearing and tired appearing; No acute distress Nutritional Appearance: thin and underweight Neck: Neck: Yes normal visual inspection, Yes full ROM and Yes no lymphaden opathy Chest: Chest palpation & inspection: normal inspection of the chest Resp: Auscultation: rhonchi, wheezes and diminished lung sounds Cardio: Rate: regular rate Rhythm: regular rhythm Heart sounds: S1 normal heart sound present and S2 normal heart sound present GI: Palpation (GI): Soft to palpation and nontender Auscultation: normal bowel sounds : General: Yes no CVA tenderness Back/Spine/Pelvis: Back: no CVA tenderness Procedures Date of Service Date of Service: 04/15/22 Assessment and Plan Assessment and plan (1) Acute respiratory failure: Status: Acute (2) Pulmonary emboli: Status: Acute (3) PNA (pneumonia): Status: Acute (4) Pneumonitis: Problem details: maybe developing ARDS Status: Acute Plan In view of her worsening chest x-ray with the possibility of developing ARDS I will broaden again the antibiotics to Zosyn and vanco Solu-Medrol 40 mg daily for the treatment of potential of ARDS Nebulized therapy every 4 hours and as needed Oxygen supplementation to maintain a pulse ox above 90% Continue heparin drip for now Repeat chest x-ray in the morning Cardiac condition Time Spent With Patient Time: Total time spent is greater than 50% in coordination of care (as documented) at patient's floor/unit and/or counseling patient: Progress Note: Quality Stroke Does the patient have a stroke diagnosis?: No
[2022-04-15] MEDS: Spironolactone 25 MG TABLET 12.5 MG PO (14:15)
--- NOTE | 2022-04-15 14:17 | P.PNID_ITS ---
Subjective Subjective Date of Service: 04/15/22 Interval History: she has some leukocytosis decrease and no productive sputum Critical Care Time (minutes): 15 Objective Data Labs CBC & Chem 7: 04/15/22 06:09 04/15/22 06:09 Labs: Laboratory Results - last 24 hr 04/14/22 04/15/22 04/15/22 19:18 06:09 06:09 WBC 15.7 H RBC 2.89 L Hgb 9.1 L Hct 28.1 L MCV 97.2 MCH 31.5 MCHC 32.4 RDW 15.3 Plt Count 120 L MPV 10.3 Absolute Nucleated RBC 0.000 Nucleated RBC % (auto) 0.0 PT INR aPTT Heparin Protocol 62.3 VBG pH VBG pCO2 VBG pO2 VBG HCO3 VBG O2 Saturation VBG Base Excess Sodium Potassium Chloride Carbon Dioxide Anion Gap BUN Creatinine 0.77 Estim Creat Clear Calc 69.3 Estimated GFR > 60 Random Glucose Calcium 04/15/22 04/15/22 04/15/22 06:09 06:09 06:09 WBC RBC Hgb Hct MCV MCH MCHC RDW Plt Count MPV Absolute Nucleated RBC Nucleated RBC % (auto) PT 18.4 H INR 1.6 H aPTT Heparin Protocol 64.9 VBG pH VBG pCO2 VBG pO2 VBG HCO3 VBG O2 Saturation VBG Base Excess Sodium 137 Potassium 4.4 Chloride 108 Carbon Dioxide 22 Anion Gap 11 L BUN 21 H Creatinine 0.77 Estim Creat Clear Calc 69.3 Estimated GFR > 60 Random Glucose 135 H Calcium 8.4 04/15/22 09:49 WBC RBC Hgb Hct MCV MCH MCHC RDW Plt Count MPV Absolute Nucleated RBC Nucleated RBC % (auto) PT INR aPTT Heparin Protocol VBG pH 7.34 VBG pCO2 53 VBG pO2 140 VBG HCO3 29 H VBG O2 Saturation 100.0 VBG Base Excess 3.3 Sodium Potassium Chloride Carbon Dioxide Anion Gap BUN Creatinine Estim Creat Clear Calc Estimated GFR Random Glucose Calcium Microbiology Microbiology Results: Microbiology 04/12/22 18:55 Blood - Venous Blood Culture - Final Coag negative Staphylococcus Bacillus species 04/13/22 Unknown Peritoneal Fluid Gram Stain - Final 04/13/22 Unknown Peritoneal Fluid Anaerobic Culture - Preliminary No growth to date. 04/13/22 Unknown Peritoneal Fluid Body Fluid Culture - Preliminary No growth to date. 04/12/22 18:49 Blood - Venous Blood Culture - Preliminary No growth after 48 hours. Physical Exam Vital Signs: Vital Signs: Last Vital Signs Temp 98.0 F 04/15/22 11:50 Pulse 88 04/15/22 11:50 Resp 20 04/15/22 11:50 BP 128/64 04/15/22 11:50 Pulse Ox 94 04/15/22 11:50 BMI result Body Mass Index 28.9 Eyes: General: appearance normal, both eyes and all related structures Resp: Effort & Inspection: normal respiratory effort Cardio: Rate: regular rate Rhythm: regular rhythm GI: Inspection: Yes normal to inspection Assessment and Plan Assessment and plan (1) Pneumonitis: Problem details: possible atypical no positive cultures Status: Acute (2) Cirrhosis: Status: Acute Plan May change at this time to Doxycycline cover atypical lung infection,possibly 3- 5 days Stop Vancomycin and Zosyn (one blood culture with bacillus and coagulase negative staph together likely contaminant) Time Spent With Patient Time: Total time spent is greater than 50% in coordination of care (as documented) at patient's floor/unit and/or counseling patient:
[2022-04-15] MEDS: Doxycycline Hyclate 100 MG in 0.9 % Sodium Chloride 250 ML 166.67 MG IV (14:27)
--- NOTE | 2022-04-15 14:54 | MHC.CM.PN ---
Female 66 DX PE , PNA respiratory failure. No discharge today per MD rounds. DPis home no services. Her will provide transport.
--- NOTE | 2022-04-15 17:11 | PM.GIPN ---
Subjective Subjective Date of Service: 04/15/22 Interval History: no black stools tolerating diet Critical Care Time (minutes): 0 Physical Exam Vital Signs: Vital Signs: Last Vital Signs Temp 98.6 F 04/15/22 20:00 Pulse 92 04/15/22 20:00 Resp 17 04/15/22 20:00 BP 135/76 04/15/22 20:00 Pulse Ox 93 04/15/22 20:00 BMI result Body Mass Index 28.9 GI: Other: abdomen is soft with ascites Extrem: Other: there is less edema than on prior exam. Objective Data Labs CBC & Chem 7: 04/15/22 06:09 04/15/22 06:09 Procedures Date of Service Date of Service: 04/15/22 Progress Note: A&P Assessment and plan (1) Cirrhosis: Status: Acute Assessment and Plan: cirrhosis with ascites and esophageal varicea repeat paracentesis prn discomfort diuretics with goal of O>I by 500ml daily monitor cbc, lfts and bun/cr She needs to be set up with a pcp prior to discharge. Time Spent With Patient Time: Total time spent is greater than 50% in coordination of care (as documented) at patient's floor/unit and/or counseling patient: Quality Stroke Does the patient have a stroke diagnosis?: No VTE Prior VTE?: No VTE Risk Level:: Medical - moderate - high VTE Device Contraindication: Treatment Not Indicated VTE Drug Contraindication: N/A - Med Ordered
[2022-04-15] MEDS: Furosemide 20 MG/2 ML VIAL IVPUSH (17:56)
[2022-04-15] MEDS: Piperacillin Sodium/Tazobactam 3.375 GM in 0.9 % Sodium Chloride 50 ML IV ×2 (17:56→23:59)
[2022-04-15 19:44] LABS: Vancomycin Trough 14.3 mcg/mL (10.0-20.0)
[2022-04-16] VITALS (9 sets, daily range): BP systolic 110–140; BP diastolic 56–79; PULSE 86–113; RESP 18–22; TEMP 36.3–37; O2SAT 90–95; BMI 29.0
[2022-04-16] MEDS: Doxycycline Hyclate 100 MG in 0.9 % Sodium Chloride 250 ML 166.67 MG IV (02:36)
[2022-04-16] MEDS: Heparin Sodium,Porcine/1/2NS 25,000 UNIT/250 ML IV.SOLN 4.45 UNIT IVCONT (06:04)
[2022-04-16] MEDS: Octreotide Acetate 500 MCG in 0.9 % Sodium Chloride 500 ML 25.05 MCG IVCONT (06:09)
[2022-04-16] MEDS: Piperacillin Sodium/Tazobactam 3.375 GM in 0.9 % Sodium Chloride 50 ML IV ×3 (06:09→18:30)
[2022-04-16] MEDS: Pantoprazole Sodium 80 MG in 0.9 % Sodium Chloride 80 ML 10 MG IV (06:09)
[2022-04-16] MEDS: methylPREDNISolone Sod Succ 40 MG/ML VIAL IVPUSH (06:10)
[2022-04-16 06:31] LABS: Hematocrit 27.9 % (37.0-47.0); Hemoglobin 9.3 g/dl (12.0-16.0); Mean Corpuscular HGB Conc 33.3 g/dl (31.0-35.0); Mean Corpuscular Hemoglobin 32.5 pg (27.0-33.0); Mean Corpuscular Volume 97.6 fL (80.0-98.0); Platelet Count 117 X10*3/uL (160-400); Red Blood Count 2.86 X10*6/uL (4.20-5.50); Red Cell Distribution Width 15.3 % (11.0-16.0); White Blood Count 16.6 X10*3/uL (4.8-10.8)
[2022-04-16 06:50] LABS: Blood Urea Nitrogen 20 mg/dL (9-16); Calcium 8.5 mg/dL (8.4-10.2); Creatinine Clr Calc Pharmacy 67.6; Estimated Glomerular Filt Rate > 60; Glucose Random 147 mg/dL (60-115)
[2022-04-16 06:56] LABS: B Type Natriuretic Peptide 544 pg/mL (<100)
[2022-04-16 07:01] LABS: PTT Heparin Drip 176.7 SEC (53-77.9)
[2022-04-16 07:02] LABS: Anion Gap 12 (12-20); Carbon Dioxide 25 mmol/L (22-29); Chloride 108 mmol/L (96-108); Potassium 3.3 mmol/L (3.3-5.1); Sodium 142 mmol/L (135-145)
[2022-04-16] MEDS: Albuterol/Iprat 2.5/0.5MG 3 ML AMPUL.NEB INHALE ×3 (07:23→20:13)
--- NOTE | 2022-04-16 08:26 | HO.PM.IMPN ---
Subjective Subjective Date of Service: 04/16/22 Interval History: hypoxia , anemia.liver disease with ascites. Esophageal varices Review of Systems Shortness of breath and oxygen demand seems to be improving Physical Exam Vital Signs: Vital Signs: Last Vital Signs Temp 97.3 F 04/16/22 07:56 Pulse 107 H 04/16/22 07:56 Resp 20 04/16/22 07:56 BP 123/56 L 04/16/22 07:56 Pulse Ox 92 04/16/22 07:56 BMI result Body Mass Index 29.0 Appearance: Alert.? Oriented X3.? cvs: [id number], [id number] , no murmur res: air entry fair ,slightly diminshed at bases. abd: significant ascitis? ,nt, bs present. ext pulses present , no cyanosis. neuro: axo3 , nonfocal. Objective Data Active Medications Acetaminophen (Acetaminophen 325 Mg Tablet) 650 mg PO Q6H PRN PRN Reason: Pain, Mild (Pain Scale 1-3) Albuterol/Ipratropium (Albuterol/Iprat 2.5/0.5mg 3 Ml Ampul.Neb) 3 ml INHALE RQ4H WHILE AWAKE [facility] Last Admin: 04/16/22 07:23 Dose: 3 ml Documented by: BRADLEY Furosemide (Furosemide 40 Mg Tablet) 40 mg PO DAILY [facility]; Protocol Last Admin: 04/15/22 10:34 Dose: 40 mg Documented by: JOHNATHAN Heparin Sodium (Porcine) (Heparin Sodium,Porcine 5,000 Unit/Ml Vial) 3,000 unit 40 unit/kg (3000 unit) IVPUSH PROTOCOL BOLUS PRN; Protocol PRN Reason: 40 unit/kg - Heparin Protocol Heparin Sodium (Porcine) (Heparin Sodium,Porcine 5,000 Unit/Ml Vial) 5,900 unit 80 unit/kg (5900 unit) IVPUSH PROTOCOL BOLUS PRN; Protocol PRN Reason: 80 unit/kg - Heparin Protocol Hydromorphone HCl (Hydromorphone Hcl 1 Mg/Ml Syringe) 0.5 mg IVPUSH Q4H PRN; Protocol PRN Reason: Pain, Severe (Pain Scale 7-10) Heparin Sodium/Sodium Chloride () 25,000 unit in 250 mls @ 0 mls/hr IVCONT .Q0M [facility]; Protocol Last Titration: 04/16/22 07:31 Dose: 0 units/kg/hr, 0 mls/hr Documented by: LIBBY Cosigned by: DAMION Pantoprazole Sodium 80 mg/ (Sodium Chloride) 100 mls @ 10 mls/hr IV .Q10H [facility] Last Admin: 04/16/22 06:09 Dose: 8 mg/hr, 10 mls/hr Documented by: MICKEY Octreotide Acetate 500 mcg/ (Sodium Chloride) 501 mls @ 25.05 mls/hr IVCONT .Q20H [facility] Last Admin: 04/16/22 06:09 Dose: 25 mcg/hr, 25.05 mls/hr Documented by: MICKEY Doxycycline Hyclate 100 mg/ (Sodium Chloride) 250 mls @ 166.67 mls/hr IV Q12H [facility] Last Infusion: 04/16/22 04:25 Dose: 0 mls/hr Documented by: MICKEY Piperacillin Sod/Tazobactam (Sod 3.375 gm/ Sodium Chloride) 50 mls @ 100 mls/hr IV Q6H [facility] Last Infusion: 04/16/22 06:44 Dose: 0 mls/hr Documented by: MICKEY Melatonin (Melatonin 3 Mg Tablet) 6 mg PO BEDTIME PRN PRN Reason: Insomnia Methylprednisolone Sodium Succinate (Methylprednisolone Sod Succ 40 Mg/Ml Vial) 40 mg IVPUSH Q24H [facility] Last Admin: 04/16/22 06:10 Dose: 40 mg Documented by: MICKEY Midodrine (Midodrine Hcl 2.5 Mg Tablet) 2.5 mg PO BID [facility] Last Admin: 04/15/22 20:40 Dose: 2.5 mg Documented by: MICKEY Pharmacy Consult (Consult Rx Perform Med Rec) 1 each MISCELLANE ONCE PRN PRN Reason: Consult order Pharmacy Consult (Consult Rx Vancomycin Dosing) 1 each MISCELLANE DAILY PRN PRN Reason: Consult order Senna (Sennosides 8.6 Mg Tablet) 17.2 mg PO BEDTIME PRN PRN Reason: Constipation Sodium Chloride (0.9 % Sodium Chloride Flush 3 Ml Syringe) 3 ml IVFLUSH QSHIFT [facility] Last Admin: 04/15/22 20:34 Dose: 3 ml Documented by: MICKEY Labs CBC & Chem 7: 04/16/22 05:56 04/16/22 05:56 Labs: Laboratory Results - last 24 hr 04/15/22 04/15/22 04/16/22 09:49 19:18 05:56 MCV 97.6 MCH 32.5 MCHC 33.3 RDW 15.3 Plt Count 117 L MPV 10.0 Absolute Nucleated RBC 0.000 Nucleated RBC % (auto) 0.0 aPTT Heparin Protocol VBG pH 7.34 VBG pCO2 53 VBG pO2 140 VBG HCO3 29 H VBG O2 Saturation 100.0 VBG Base Excess 3.3 Anion Gap Estim Creat Clear Calc Estimated GFR Random Glucose Calcium B-Natriuretic Peptide Vancomycin Trough 14.3 04/16/22 04/16/22 04/16/22 05:56 05:56 05:56 MCV MCH MCHC RDW Plt Count MPV Absolute Nucleated RBC Nucleated RBC % (auto) aPTT Heparin Protocol 176.7 H* D VBG pH VBG pCO2 VBG pO2 VBG HCO3 VBG O2 Saturation VBG Base Excess Anion Gap 12 Estim Creat Clear Calc 67.6 Estimated GFR > 60 Random Glucose 147 H Calcium 8.5 B-Natriuretic Peptide 544 H Vancomycin Trough Microbiology Microbiology Results: Microbiology 04/12/22 18:55 Blood Culture - Final Blood - Venous Coag negative Staphylococcus Bacillus species 04/13/22 Unknown Gram Stain - Final Peritoneal Fluid Anaerobic Culture - Preliminary No growth to date. Body Fluid Culture - Preliminary No growth to date. Assessment and Plan (1) Pneumonitis: Status: Acute (2) Acute respiratory failure: Status: Acute (3) Cirrhosis: Status: Acute (4) Pulmonary emboli: Status: Acute Plan 66-year-old female with a past medical history of alcoholic liver cirrhosis, erosive esophagitis, esophageal varices, history of GI bleed, presented to the hospital today with a chief complaint of shortness of breath.? Will Noted to have following conditions: Acute hypoxic respiratory failure:? Multifactorial: pulmonary embolism/pneumonia, ascitis also pushing against the chest.? sob seems improving , says that still difficult to breathe due to the significant ascites. Patient on supplemental oxygen DuoNebs p.r.n. Blood culture -gram postive cocci and bacillius sp, Leukocytosis slightly up probbaly steriods contributin Give the patient on IV vancomycin , moniter Vanco trough [id number]. Above blood culture was thought to be contaminant-will switch to po doxycyline Acute pulmonary embolism:??Patient noted to have multiple pulmonary emboli.? Troponins 33 probably related to pulmonary embolism/pneumonia. ?US/US venous duplex : Nonocclusive deep venous thrombus in the right popliteal vein. No extension centrally into the femoral or common femoral vein. ? No evidence of deep venous arms in the left lower extremity however the bilateral peroneal veins were not identified. Echo : Conclusions: - The left ventricular systolic function is normal.? The ? calculated ejection fraction is 67% by biplane method. ? - No obvious valvular pathology seen on this study.? ? Continue heparin drip, GI recommend to start p.o. anticoagulation-will check with Hematology. Severe lactic acidosis:? Probably secondary to liver disease, trending down patient is clinically improving so will stop trending lactic acid. stop fluids History of alcoholic liver cirrhosis/ascites: Patient has hypoalbuminemia possible related to poor oral intake as well as liver disease. Coagulopathy secondary to liver disease not due to sepsis( inr slightly better than yesterday). LFTs actually trending down than before Patient said she quit alcohol 4 months ago Encouraged for p.o. intake. s/pparacentesis:less likely infectious,cultures pending , cytology added. Adjust to IV Lasix and continue spironolactone, monitor I&O daily weights. Monitor liver function, renal function and electrolyte closely, PT INR. History of esophageal varices/erosive esophagitis:? Continue on PPI.? Continue iv heparin moniter h/h stable around 9 range anemia normocytic : d/w Gi -moniter cbc daily since h/h stable around 9. Discuss[address] Dr[address] Vaz:?start oralAC Will check with hematology for AC. DVT prophylaxis: Patient on heparin drip inpatient need:pneumonia,pulm embolism, esophageal varices . Quality Stroke Does the patient have a stroke diagnosis?: No VTE Prior VTE?: No VTE Risk Level:: Medical - moderate - high VTE Device Contraindication: Treatment Not Indicated VTE Drug Contraindication: N/A - Med Ordered
[2022-04-16 09:06] LABS: PTT Heparin Drip 40.5 SEC (53-77.9)
[2022-04-16] MEDS: 0.9 % Sodium Chloride Flush 3 ML SYRINGE IVFLUSH (09:25)
[2022-04-16] MEDS: Midodrine HCl 2.5 MG TABLET PO ×2 (09:25→20:30)
[2022-04-16] MEDS: Furosemide 40 MG TABLET PO (09:25)
[2022-04-16 11:39] LABS: Magnesium 1.9 mg/dL (1.6-2.6)
[2022-04-16] MEDS: Furosemide 20 MG/2 ML VIAL IVPUSH ×2 (11:54→18:30)
[2022-04-16] MEDS: Potassium Chloride Packet 20 MEQ PACKET 40 MEQ PO (11:54)
--- NOTE | 2022-04-16 12:20 | PM.GIPN ---
Subjective Subjective Date of Service: 04/16/22 Interval History: feels stronger eating well Critical Care Time (minutes): 0 Physical Exam Vital Signs: Vital Signs: Last Vital Signs Temp 98.3 F 04/16/22 12:00 Pulse 90 04/16/22 12:00 Resp 22 H 04/16/22 12:00 BP 128/67 04/16/22 12:00 Pulse Ox 94 04/16/22 12:00 BMI result Body Mass Index 29.0 GI: Other: abd is softer s/p second inpt paracentesis Extrem: Other: less edema Objective Data Labs CBC & Chem 7: 04/16/22 05:56 04/16/22 05:56 Procedures Date of Service Date of Service: 04/16/22 Progress Note: A&P Assessment and plan (1) Cirrhosis: Status: Acute Assessment and Plan: s/p paracentesis slow improvement continue diuretics monitor intake and output Time Spent With Patient Time: Total time spent is greater than 50% in coordination of care (as documented) at patient's floor/unit and/or counseling patient: Quality Stroke Does the patient have a stroke diagnosis?: No VTE Prior VTE?: No VTE Risk Level:: Medical - moderate - high VTE Device Contraindication: Treatment Not Indicated VTE Drug Contraindication: N/A - Med Ordered
--- NOTE | 2022-04-16 12:57 | PM.PNPUL ---
Subjective Subjective Date of Service: 04/16/22 Interval history: The patient was seen on exam. She does feel better this morning. She does have a Ventimask on. She did have a repeat chest x-ray still demonstrating the patchy opacities. The findings on the x-ray will likely lag behind symptom improvement which is reassuring that she is feeling a little better. Her cultures were positive for multiple organisms in the blood. Currently being treated for both bacteremia and aspiration pneumonia. Her x-rays are indeed concerning for aspiration pneumonitis versus ARDS Objective Data Labs CBC & Chem 7: 04/16/22 05:56 04/16/22 05:56 Labs: Laboratory Results - last 24 hr 04/15/22 04/16/22 04/16/22 19:18 05:56 05:56 WBC 16.6 H RBC 2.86 L Hgb 9.3 L Hct 27.9 L MCV 97.6 MCH 32.5 MCHC 33.3 RDW 15.3 Plt Count 117 L MPV 10.0 Absolute Nucleated RBC 0.000 Nucleated RBC % (auto) 0.0 aPTT Heparin Protocol Sodium 142 Potassium 3.3 D Chloride 108 Carbon Dioxide 25 Anion Gap 12 BUN 20 H Creatinine 0.79 Estim Creat Clear Calc 67.6 Estimated GFR > 60 Random Glucose 147 H Calcium 8.5 Magnesium 1.9 B-Natriuretic Peptide Vancomycin Trough 14.3 04/16/22 04/16/22 04/16/22 05:56 05:56 08:37 WBC RBC Hgb Hct MCV MCH MCHC RDW Plt Count MPV Absolute Nucleated RBC Nucleated RBC % (auto) aPTT Heparin Protocol 176.7 H* D 40.5 L D Sodium Potassium Chloride Carbon Dioxide Anion Gap BUN Creatinine Estim Creat Clear Calc Estimated GFR Random Glucose Calcium Magnesium B-Natriuretic Peptide 544 H Vancomycin Trough Microbiology Microbiology Results: Microbiology 04/13/22 Unknown Peritoneal Fluid Gram Stain - Final 04/13/22 Unknown Peritoneal Fluid Anaerobic Culture - Preliminary No growth to date. 04/13/22 Unknown Peritoneal Fluid Body Fluid Culture - Final No growth after 2 days 04/12/22 18:55 Blood - Venous Blood Culture - Final Coag negative Staphylococcus Bacillus species 04/12/22 18:49 Blood - Venous Blood Culture - Preliminary No growth after 48 hours. Review of Systems Constitutional: Reports no additional constitutional complaints, Denies chills, Denies fever(s) and Denies night sweats Eyes: Reports no additional eye complaints, Denies blurry vision, Denies change in vision, Denies diplopia, Denies eye discharge, Denies loss of vision and Denies eye pain Denies dizziness Cardiovascular: Reports no additional cardiovascular complaints, Denies chest pain, Denies lightheadedness, Denies Loss of Consciousness and Reports dyspnea Respiratory: Reports dyspnea Gastrointestinal: Denies abdominal pain, Denies melena, Denies hematochezia, Denies change in bowel habits, Denies change in stool character and Denies hematemesis Genitourinary: Denies hematuria, Denies urinary frequency, Denies dysuria, Denies urinary incontinence, Denies urinary hesitancy and Denies urinary urgency Musculoskeletal: Reports no additional musculoskeletal complaints, Denies numbness and Denies tingling Denies dizziness, Denies loss of vision, Denies numbness and Denies tingling Psychiatric: Reports no additional psychiatric complaints Endocrine: Reports no additional endocrine complaints Hematologic/Lymphatic: Reports no additional hematologic/lymphatic complaints Allergic/Immunologic: Reports no additional allergic/immunologic complaints Physical Exam Vital Signs: Vital Signs: Last Vital Signs Temp 98.3 F 04/16/22 12:00 Pulse 90 04/16/22 12:00 Resp 22 H 04/16/22 12:00 BP 128/67 04/16/22 12:00 Pulse Ox 94 04/16/22 12:00 BMI result Body Mass Index 29.0 Const: General: alert Neck: Neck: Yes normal visual inspection, Yes full ROM and Yes no lymphadenopathy Chest: Chest palpation & inspection: normal inspection of the chest Resp: Auscultation: diminished lung sounds Cardio: Rate: regular rate Rhythm: regular rhythm Heart sounds: S1 normal heart sound present and S2 normal heart sound present GI: Palpation (GI): Soft to palpation and nontender Auscultation: normal bowel sounds Skin: General skin exam: rashes and/or lesions noted Procedures Date of Service Date of Service: 04/16/22 Assessment and Plan Assessment and plan (1) Pneumonitis: Status: Acute (2) Acute respiratory failure: Status: Acute (3) Pulmonary emboli: Status: Acute (4) PNA (pneumonia): Status: Acute Plan Continue with Zosyn and doxycycline to complete a 7 day course at least for the pneumonia standpoint Solu-Medrol 40 mg daily Continue oxygen supplementation to maintain a pulse ox above 90% For continues on heparin drip. The patient appears to have stabilize hemoglobin. Hopefully she can start anticoagulation with a heparin drip bridge as per Hematology. Diuresis as tolerated Serious condition Time Spent With Patient Time: Total time spent is greater than 50% in coordination of care (as documented) at patient's floor/unit and/or counseling patient: Progress Note: Quality Stroke Does the patient have a stroke diagnosis?: No
[2022-04-16] MEDS: Doxycycline Hyclate 100 MG in 0.9 % Sodium Chloride 250 ML 166.66 MG IV (14:19)
[2022-04-16 14:46] LABS: Alanine Aminotransferase 21 U/L (0-31); Alkaline Phosphatase 74 U/L (39-117); Aspartate Amino Transferase 41 U/L (5-31); Bilirubin Direct 1.1 mg/dL (0.0-0.5); Bilirubin Total 1.7 mg/dL (0.0-1.0); Total Protein 5.4 g/dL (6.5-8.0)
[2022-04-16 15:06] LABS: Procalcitonin 0.43 ng/mL
[2022-04-16 15:49] LABS: PTT Heparin Drip 34.9 SEC (53-77.9)
[2022-04-16] MEDS: Heparin Sodium,Porcine 5,000 UNIT/ML VIAL 5900 UNIT IVPUSH (16:12)
[2022-04-16] MEDS: Omeprazole 40 MG CAPSULE.DR PO (16:25)
[2022-04-16] MEDS: Magnesium Oxide 400 MG TABLET PO (16:25)
[2022-04-16 22:32] LABS: PTT Heparin Drip 155.2 SEC (53-77.9)
[2022-04-17] VITALS (11 sets, daily range): BP systolic 118–137; BP diastolic 56–69; PULSE 78–107; RESP 18–20; TEMP 36–36.9; O2SAT 91–98
[2022-04-17 00:10] LABS: PTT Heparin Drip 54.6 SEC (53-77.9)
[2022-04-17] MEDS: Piperacillin Sodium/Tazobactam 3.375 GM in 0.9 % Sodium Chloride 50 ML IV ×5 (01:14→23:19)
[2022-04-17] MEDS: 0.9 % Sodium Chloride Flush 3 ML SYRINGE IVFLUSH ×4 (01:15→19:52)
[2022-04-17] MEDS: Doxycycline Hyclate 100 MG in 0.9 % Sodium Chloride 250 ML 166.6 MG IV (04:06)
[2022-04-17] MEDS: Heparin Sodium,Porcine/1/2NS 25,000 UNIT/250 ML IV.SOLN 1.48 UNIT IVCONT (06:12)
[2022-04-17] MEDS: Omeprazole 40 MG CAPSULE.DR PO ×2 (06:12→17:05)
[2022-04-17] MEDS: methylPREDNISolone Sod Succ 40 MG/ML VIAL IVPUSH (06:41)
[2022-04-17 07:16] LABS: Hematocrit 28.5 % (37.0-47.0); Hemoglobin 9.2 g/dl (12.0-16.0); Mean Corpuscular HGB Conc 32.3 g/dl (31.0-35.0); Mean Corpuscular Hemoglobin 31.6 pg (27.0-33.0); Mean Corpuscular Volume 97.9 fL (80.0-98.0); Mean Platelet Volume 9.4 fL (9.4-12.3); Platelet Count 103 X10*3/uL (160-400); Red Blood Count 2.91 X10*6/uL (4.20-5.50); Red Cell Distribution Width 15.6 % (11.0-16.0); White Blood Count 17.6 X10*3/uL (4.8-10.8)
[2022-04-17 07:28] LABS: PTT Heparin Drip 36.1 SEC (53-77.9)
[2022-04-17] MEDS: Albuterol/Iprat 2.5/0.5MG 3 ML AMPUL.NEB INHALE ×4 (07:31→19:00)
[2022-04-17 07:36] LABS: Anion Gap 8 (12-20); Blood Urea Nitrogen 21 mg/dL (9-16); Calcium 8.4 mg/dL (8.4-10.2); Carbon Dioxide 31 mmol/L (22-29); Chloride 108 mmol/L (96-108); Creatinine Clr Calc Pharmacy 63.5; Estimated Glomerular Filt Rate > 60; Glucose Random 136 mg/dL (60-115); Potassium 3.2 mmol/L (3.3-5.1); Sodium 144 mmol/L (135-145)
[2022-04-17] MEDS: Magnesium Oxide 400 MG TABLET PO ×2 (08:53→17:05)
[2022-04-17] MEDS: Midodrine HCl 2.5 MG TABLET PO ×2 (08:53→19:52)
[2022-04-17] MEDS: Furosemide 20 MG/2 ML VIAL IVPUSH ×2 (08:53→17:05)
[2022-04-17] MEDS: Heparin Sodium,Porcine 5,000 UNIT/ML VIAL 5900 UNIT IVPUSH ×2 (08:55→23:15)
--- NOTE | 2022-04-17 09:12 | HO.PM.IMPN ---
Subjective Subjective Date of Service: 04/17/22 Interval History: hypoxia , anemia.liver disease with ascites. Esophageal varices Review of Systems sob seems improving Physical Exam Vital Signs: Vital Signs: Last Vital Signs Temp 98.0 F 04/17/22 07:33 Pulse 86 04/17/22 07:33 Resp 18 04/17/22 07:33 BP 136/60 04/17/22 07:33 Pulse Ox 92 04/17/22 07:33 BMI result Body Mass Index 29.0 Appearance: Alert.? Oriented X3.? cvs: rrr, [id number] , no murmur res: air entry similar to yesterday, few rhonchii. abd: has ascitis? ,nt, bs present. ext pulses present , no cyanosis. neuro: axo3 , nonfocal. Objective Data Active Medications Acetaminophen (Acetaminophen 325 Mg Tablet) 650 mg PO Q6H PRN PRN Reason: Pain, Mild (Pain Scale 1-3) Albuterol/Ipratropium (Albuterol/Iprat 2.5/0.5mg 3 Ml Ampul.Neb) 3 ml INHALE RQ4H WHILE AWAKE [facility] Last Admin: 04/17/22 07:31 Dose: 3 ml Documented by: BRADLEY Furosemide (Furosemide 20 Mg/2 Ml Vial) 20 mg IVPUSH BID@0800,1800 [facility]; Protocol Last Admin: 04/17/22 08:53 Dose: 20 mg Documented by: MIGUELINA Heparin Sodium (Porcine) (Heparin Sodium,Porcine 5,000 Unit/Ml Vial) 3,000 unit 40 unit/kg (3000 unit) IVPUSH PROTOCOL BOLUS PRN; Protocol PRN Reason: 40 unit/kg - Heparin Protocol Heparin Sodium (Porcine) (Heparin Sodium,Porcine 5,000 Unit/Ml Vial) 5,900 unit 80 unit/kg (5900 unit) IVPUSH PROTOCOL BOLUS PRN; Protocol PRN Reason: 80 unit/kg - Heparin Protocol Last Admin: 04/17/22 08:55 Dose: 5,900 unit Documented by: MIGUELINA Hydromorphone HCl (Hydromorphone Hcl 1 Mg/Ml Syringe) 0.5 mg IVPUSH Q4H PRN; Protocol PRN Reason: Pain, Severe (Pain Scale 7-10) Heparin Sodium/Sodium Chloride () 25,000 unit in 250 mls @ 0 mls/hr IVCONT .Q0M [facility]; Protocol Last Titration: 04/17/22 08:58 Dose: 6 units/kg/hr, 4.45 mls/hr Documented by: MIGUELINA Cosigned by: GOLDEN Doxycycline Hyclate 100 mg/ (Sodium Chloride) 250 mls @ 166.67 mls/hr IV Q12H [facility] Last Infusion: 04/17/22 06:45 Dose: 166.6 mls/hr Documented by: JAXON Piperacillin Sod/Tazobactam (Sod 3.375 gm/ Sodium Chloride) 50 mls @ 100 mls/hr IV Q6H [facility] Last Infusion: 04/17/22 06:45 Dose: 100 mls/hr Documented by: JAXON Magnesium Oxide (Magnesium Oxide 400 Mg Tablet) 400 mg PO BIDPC [facility] Last Admin: 04/17/22 08:53 Dose: 400 mg Documented by: MIGUELINA Melatonin (Melatonin 3 Mg Tablet) 6 mg PO BEDTIME PRN PRN Reason: Insomnia Methylprednisolone Sodium Succinate (Methylprednisolone Sod Succ 40 Mg/Ml Vial) 40 mg IVPUSH Q24H [facility] Last Admin: 04/17/22 06:41 Dose: 40 mg Documented by: JAXON Midodrine (Midodrine Hcl 2.5 Mg Tablet) 2.5 mg PO BID [facility] Last Admin: 04/17/22 08:53 Dose: 2.5 mg Documented by: MIGUELINA Omeprazole (Omeprazole 40 Mg Capsule.Dr) 40 mg PO BID@0630,1630 [facility] Last Admin: 04/17/22 06:12 Dose: 40 mg Documented by: JAXON Pharmacy Consult (Consult Rx Perform Med Rec) 1 each MISCELLANE ONCE PRN PRN Reason: Consult order Pharmacy Consult (Consult Rx Vancomycin Dosing) 1 each MISCELLANE DAILY PRN PRN Reason: Consult order Senna (Sennosides 8.6 Mg Tablet) 17.2 mg PO BEDTIME PRN PRN Reason: Constipation Sodium Chloride (0.9 % Sodium Chloride Flush 3 Ml Syringe) 3 ml IVFLUSH QSHIFT [facility] Last Admin: 04/17/22 08:53 Dose: 3 ml Documented by: MIGUELINA Labs CBC & Chem 7: 04/17/22 07:05 04/17/22 07:05 Labs: Laboratory Results - last 24 hr 04/16/22 04/16/22 04/16/22 05:56 05:56 08:37 MCV MCH MCHC RDW Plt Count MPV Absolute Nucleated RBC Nucleated RBC % (auto) aPTT Heparin Protocol 40.5 L D Anion Gap Estim Creat Clear Calc Estimated GFR Random Glucose Calcium Magnesium 1.9 Total Bilirubin 1.7 H Direct Bilirubin 1.1 H AST 41 H ALT 21 Alkaline Phosphatase 74 D Total Protein 5.4 L Albumin 3.0 L D Procalcitonin 0.43 04/16/22 04/16/22 04/16/22 15:20 21:52 23:42 MCV MCH MCHC RDW Plt Count MPV Absolute Nucleated RBC Nucleated RBC % (auto) aPTT Heparin Protocol 34.9 L 155.2 H* D 54.6 D Anion Gap Estim Creat Clear Calc Estimated GFR Random Glucose Calcium Magnesium Total Bilirubin Direct Bilirubin AST ALT Alkaline Phosphatase Total Protein Albumin Procalcitonin 04/17/22 04/17/22 04/17/22 07:05 07:05 07:05 MCV 97.9 Cancelled MCH 31.6 Cancelled MCHC 32.3 Cancelled RDW 15.6 Cancelled Plt Count 103 L Cancelled MPV 9.4 Cancelled Absolute Nucleated RBC 0.000 Cancelled Nucleated RBC % (auto) 0.0 Cancelled aPTT Heparin Protocol Anion Gap Estim Creat Clear Calc Cancelled Estimated GFR Cancelled Random Glucose Calcium Magnesium Total Bilirubin Direct Bilirubin AST ALT Alkaline Phosphatase Total Protein Albumin Procalcitonin 04/17/22 04/17/22 07:05 07:05 MCV MCH MCHC RDW Plt Count MPV Absolute Nucleated RBC Nucleated RBC % (auto) aPTT Heparin Protocol 36.1 L D Anion Gap 8 L Estim Creat Clear Calc 63.5 Estimated GFR > 60 Random Glucose 136 H Calcium 8.4 Magnesium Total Bilirubin Direct Bilirubin AST ALT Alkaline Phosphatase Total Protein Albumin Procalcitonin Microbiology Microbiology Results: Microbiology 04/13/22 Unknown Gram Stain - Final Peritoneal Fluid Anaerobic Culture - Preliminary No growth to date. Body Fluid Culture - Final No growth after 2 days Assessment and Plan (1) Pneumonitis: Status: Acute (2) Acute respiratory failure: Status: Acute (3) Cirrhosis: Status: Acute (4) Pulmonary emboli: Status: Acute Plan 66-year-old female with a past medical history of alcoholic liver cirrhosis, erosive esophagitis, esophageal varices, history of GI bleed, presented to the hospital today with a chief complaint of shortness of breath.? Will Noted to have following conditions: Acute hypoxic respiratory failure:? Multifactorial: pulmonary embolism/pneumonia, ascitis also pushing against the chest.? sob seems improving , says that still difficult to breathe due to the significant ascites. Patient on supplemental oxygen DuoNebs p.r.n. Blood culture -gram postive cocci and bacillius sp, Leukocytosis slightly up probbaly steriods contributin continue doxy/zosyn Above blood culture was thought to be contaminant-will switch to po doxycyline Acute pulmonary embolism:??Patient noted to have multiple pulmonary emboli.? Troponins 33 probably related to pulmonary embolism/pneumonia. ?US/US venous duplex : Nonocclusive deep venous thrombus in the right popliteal vein. No extension centrally into the femoral or common femoral vein. ? No evidence of deep venous arms in the left lower extremity however the bilateral peroneal veins were not identified. Echo : Conclusions: - The left ventricular systolic function is normal.? The ? calculated ejection fraction is 67% by biplane method. ? - No obvious valvular pathology seen on this study.? ? Continue heparin drip, GI recommend to start p.o. anticoagulation-will check with Hematology. Severe lactic acidosis:? Probably secondary to liver disease, trending down patient is clinically improving so will stop trending lactic acid. stop fluids History of alcoholic liver cirrhosis/ascites: Patient has hypoalbuminemia possible related to poor oral intake as well as liver disease. Coagulopathy secondary to liver disease not due to sepsis( inr slightly better than yesterday). LFTs actually trending down than before Patient said she quit alcohol 4 months ago Encouraged for p.o. intake. s/pparacentesis:less likely infectious,cultures pending , cytology added. Adjust to IV Lasix and continue spironolactone, monitor I&O daily weights. Monitor liver function, renal function and electrolyte closely, PT INR. History of esophageal varices/erosive esophagitis:? Continue on PPI.? Continue iv heparin moniter h/h stable around 9 range anemia normocytic : d/w Gi -moniter cbc daily since h/h stable around 9. Discuss[address] Dr[address] Vaz:?start oralAC Will check with hematology for AC. DVT prophylaxis: Patient on heparin drip inpatient need:pneumonia,pulm embolism, esophageal varices . Quality Stroke Does the patient have a stroke diagnosis?: No VTE Prior VTE?: No VTE Risk Level:: Medical - moderate - high VTE Device Contraindication: Treatment Not Indicated VTE Drug Contraindication: N/A - Med Ordered
[2022-04-17 09:32] LABS: Alanine Aminotransferase 19 U/L (0-31); Albumin Level 2.8 g/dL (3.5-5.0); Alkaline Phosphatase 70 U/L (39-117); Aspartate Amino Transferase 36 U/L (5-31); Bilirubin Direct 1.1 mg/dL (0.0-0.5); Bilirubin Total 1.8 mg/dL (0.0-1.0); Magnesium 1.9 mg/dL (1.6-2.6); Total Protein 5.3 g/dL (6.5-8.0)
[2022-04-17 09:40] LABS: B Type Natriuretic Peptide 344 pg/mL (<100)
--- NOTE | 2022-04-17 11:43 | PM.GIPN ---
Subjective Subjective Date of Service: 04/17/22 Interval History: feels ok, tolerating diet was up to chair earlier Critical Care Time (minutes): 0 Physical Exam Vital Signs: Vital Signs: Last Vital Signs Temp 98.2 F 04/17/22 11:14 Pulse 95 04/17/22 11:14 Resp 19 04/17/22 11:14 BP 133/65 04/17/22 11:14 Pulse Ox 94 04/17/22 11:14 BMI result Body Mass Index 29.0 GI: Other: abdomen is soft with ascites Extrem: Other: edema, but less than earlier Objective Data Labs CBC & Chem 7: 04/17/22 07:05 04/17/22 07:05 Microbiology Microbiology Results: Microbiology 04/13/22 Unknown Peritoneal Fluid Gram Stain - Final 04/13/22 Unknown Peritoneal Fluid Anaerobic Culture - Preliminary No growth to date. 04/13/22 Unknown Peritoneal Fluid Body Fluid Culture - Final No growth after 2 days 04/12/22 18:55 Blood - Venous Blood Culture - Final Coag negative Staphylococcus Bacillus species 04/12/22 18:49 Blood - Venous Blood Culture - Preliminary No growth after 48 hours. Procedures Date of Service Date of Service: 04/17/22 Progress Note: A&P Assessment and plan (1) Cirrhosis: Status: Acute Assessment and Plan: no bleeding continue diuretics paracentesis prn needs to establish with pcp on discharge Time Spent With Patient Time: Total time spent is greater than 50% in coordination of care (as documented) at patient's floor/unit and/or counseling patient: Quality Stroke Does the patient have a stroke diagnosis?: No VTE Prior VTE?: No VTE Risk Level:: Medical - moderate - high VTE Device Contraindication: Treatment Not Indicated VTE Drug Contraindication: N/A - Med Ordered
[2022-04-17] MEDS: Potassium Chloride Packet 20 MEQ PACKET PO (14:31)
[2022-04-17] MEDS: Doxycycline Hyclate 100 MG in 0.9 % Sodium Chloride 250 ML 166.67 MG IV (14:31)
[2022-04-17 15:44] LABS: PTT Heparin Drip 163.3 SEC (53-77.9)
[2022-04-17 17:11] LABS: PTT Heparin Drip 54.1 SEC (53-77.9)
[2022-04-17 23:00] LABS: PTT Heparin Drip 32.1 SEC (53-77.9)
[2022-04-18] VITALS (11 sets, daily range): BP systolic 114–150; BP diastolic 54–73; PULSE 76–104; RESP 17–20; TEMP 36.1–36.6; O2SAT 88–95
[2022-04-18] MEDS: Doxycycline Hyclate 100 MG in 0.9 % Sodium Chloride 250 ML 166.67 MG IV ×2 (01:56→15:16)
[2022-04-18] MEDS: Albuterol/Iprat 2.5/0.5MG 3 ML AMPUL.NEB INHALE ×5 (01:59→19:18)
--- NOTE | 2022-04-18 03:10 | PM.GIPN ---
Subjective Subjective Date of Service: 04/18/22 Interval History: Palma feels like she is making progress. no reported gi bleeding Critical Care Time (minutes): 0 Physical Exam Vital Signs: Vital Signs: Last Vital Signs Temp 97.6 F 04/18/22 20:00 Pulse 104 H 04/18/22 20:00 Resp 18 04/18/22 20:00 BP 118/57 L 04/18/22 20:00 Pulse Ox 95 04/18/22 20:00 BMI result Body Mass Index 29.0 GI: Other: ascites present nontender Extrem: Other: stable edema Objective Data Labs CBC & Chem 7: 04/18/22 14:25 04/18/22 05:17 Procedures Date of Service Date of Service: 04/18/22 Progress Note: A&P Assessment and plan (1) Cirrhosis: Status: Acute Assessment and Plan: liver tests are stable continue diuresis no gi bleeding Time Spent With Patient Time: Total time spent is greater than 50% in coordination of care (as documented) at patient's floor/unit and/or counseling patient: Quality Stroke Does the patient have a stroke diagnosis?: No VTE Prior VTE?: No VTE Risk Level:: Medical - moderate - high VTE Device Contraindication: Treatment Not Indicated VTE Drug Contraindication: N/A - Med Ordered
[2022-04-18] MEDS: methylPREDNISolone Sod Succ 40 MG/ML VIAL IVPUSH (05:39)
[2022-04-18] MEDS: Piperacillin Sodium/Tazobactam 3.375 GM in 0.9 % Sodium Chloride 50 ML IV ×4 (05:39→23:52)
[2022-04-18] MEDS: Omeprazole 40 MG CAPSULE.DR PO ×2 (05:45→15:16)
[2022-04-18 06:19] LABS: Creatinine Clr Calc Pharmacy 59.9; Estimated Glomerular Filt Rate > 60
--- NOTE | 2022-04-18 07:43 | P.PNIM_ITS ---
Subjective Subjective Date of Service: 04/18/22 Interval History: hypoxia,anemia.liver disease with ascites. Esophageal varices Review of Systems Shortness of breath seems slightly better than yesterday Denies any chest pain or nausea or vomiting or any bleeding Denies any fever or chills Physical Exam Vital Signs: Vital Signs: Last Vital Signs Temp 96.9 F 04/18/22 03:17 Pulse 100 04/18/22 03:17 Resp 19 04/18/22 03:17 BP 137/65 04/18/22 03:17 Pulse Ox 90 L 04/18/22 03:17 BMI result Body Mass Index 29.0 Appearance: Alert.? Oriented X3.? cvs: [id number], [id number] , no murmur res: air entry similar to yesterday, few rhonchii. abd: has ascitis? ,nt, bs present. ext pulses present , no cyanosis. neuro: axo3 , nonfocal. Objective Data Active Medications Acetaminophen (Acetaminophen 325 Mg Tablet) 650 mg PO Q6H PRN PRN Reason: Pain, Mild (Pain Scale 1-3) Albuterol/Ipratropium (Albuterol/Iprat 2.5/0.5mg 3 Ml Ampul.Neb) 3 ml INHALE RQ4H WHILE AWAKE [facility] Last Admin: 04/18/22 01:59 Dose: 3 ml Documented by: MONTY Furosemide (Furosemide 20 Mg/2 Ml Vial) 20 mg IVPUSH BID@0800,1800 [facility]; Protocol Last Admin: 04/17/22 17:05 Dose: 20 mg Documented by: MIGUELINA Heparin Sodium (Porcine) (Heparin Sodium,Porcine 5,000 Unit/Ml Vial) 3,000 unit 40 unit/kg (3000 unit) IVPUSH PROTOCOL BOLUS PRN; Protocol PRN Reason: 40 unit/kg - Heparin Protocol Heparin Sodium (Porcine) (Heparin Sodium,Porcine 5,000 Unit/Ml Vial) 5,900 unit 80 unit/kg (5900 unit) IVPUSH PROTOCOL BOLUS PRN; Protocol PRN Reason: 80 unit/kg - Heparin Protocol Last Admin: 04/17/22 23:15 Dose: 5,900 unit Documented by: MONTY Heparin Sodium/Sodium Chloride () 25,000 unit in 250 mls @ 0 mls/hr IVCONT .Q0M [facility]; Protocol Last Titration: 04/18/22 07:11 Dose: 0 units/kg/hr, 0 mls/hr Documented by: MONTY Cosigned by: MIGUELINA Doxycycline Hyclate 100 mg/ (Sodium Chloride) 250 mls @ 166.67 mls/hr IV Q12H [facility] Last Infusion: 04/18/22 05:46 Dose: 0 mls/hr Documented by: MONTY Piperacillin Sod/Tazobactam (Sod 3.375 gm/ Sodium Chloride) 50 mls @ 100 mls/hr IV Q6H [facility] Last Infusion: 04/18/22 06:09 Dose: 0 mls/hr Documented by: MONTY Magnesium Oxide (Magnesium Oxide 400 Mg Tablet) 800 mg PO BIDPC [facility] Melatonin (Melatonin 3 Mg Tablet) 6 mg PO BEDTIME PRN PRN Reason: Insomnia Methylprednisolone Sodium Succinate (Methylprednisolone Sod Succ 40 Mg/Ml Vial) 40 mg IVPUSH Q24H [facility] Last Admin: 04/18/22 05:39 Dose: 40 mg Documented by: MONTY Midodrine (Midodrine Hcl 2.5 Mg Tablet) 2.5 mg PO BID [facility] Last Admin: 04/17/22 19:52 Dose: 2.5 mg Documented by: MONTY Omeprazole (Omeprazole 40 Mg Capsule.Dr) 40 mg PO BID@0630,1630 [facility] Last Admin: 04/18/22 05:45 Dose: 40 mg Documented by: MONTY Pharmacy Consult (Consult Rx Perform Med Rec) 1 each MISCELLANE ONCE PRN PRN Reason: Consult order Pharmacy Consult (Consult Rx Vancomycin Dosing) 1 each MISCELLANE DAILY PRN PRN Reason: Consult order Senna (Sennosides 8.6 Mg Tablet) 17.2 mg PO BEDTIME PRN PRN Reason: Constipation Sodium Chloride (0.9 % Sodium Chloride Flush 3 Ml Syringe) 3 ml IVFLUSH QSHIFT [facility] Last Admin: 04/17/22 19:52 Dose: 3 ml Documented by: MONTY Labs CBC & Chem 7: 04/18/22 14:25 04/18/22 05:17 Labs: Laboratory Results - last 24 hr 04/17/22 04/17/22 04/17/22 07:05 07:05 07:05 MCV Cancelled MCH Cancelled MCHC Cancelled RDW Cancelled Plt Count Cancelled MPV Cancelled Absolute Nucleated RBC Cancelled Nucleated RBC % (auto) Cancelled aPTT Heparin Protocol Estim Creat Clear Calc Estimated GFR Magnesium 1.9 Total Bilirubin 1.8 H Direct Bilirubin 1.1 H AST 36 H ALT 19 Alkaline Phosphatase 70 B-Natriuretic Peptide 344 H Total Protein 5.3 L Albumin 2.8 L 04/17/22 04/17/22 04/17/22 14:45 16:55 22:37 MCV MCH MCHC RDW Plt Count MPV Absolute Nucleated RBC Nucleated RBC % (auto) aPTT Heparin Protocol 163.3 H* D 54.1 D 32.1 L D Estim Creat Clear Calc Estimated GFR Magnesium Total Bilirubin Direct Bilirubin AST ALT Alkaline Phosphatase B-Natriuretic Peptide Total Protein Albumin 04/18/22 04/18/22 05:17 05:17 MCV MCH MCHC RDW Plt Count MPV Absolute Nucleated RBC Nucleated RBC % (auto) aPTT Heparin Protocol 170.0 H* D Estim Creat Clear Calc 59.9 Estimated GFR > 60 Magnesium Total Bilirubin Direct Bilirubin AST ALT Alkaline Phosphatase B-Natriuretic Peptide Total Protein Albumin Microbiology Microbiology Results: Microbiology 04/12/22 18:49 Blood Culture - Final Blood - Venous No growth after 5 days. 04/13/22 Unknown Gram Stain - Final Peritoneal Fluid Anaerobic Culture - Preliminary No growth to date. Body Fluid Culture - Final No growth after 2 days Assessment and Plan (1) Pneumonitis: Status: Acute (2) Acute respiratory failure: Status: Acute (3) Cirrhosis: Status: Acute (4) Ascites: Status: Acute (5) Pulmonary emboli: Status: Acute Plan 66-year-old female with a past medical history of alcoholic liver cirrhosis, erosive esophagitis, esophageal varices, history of GI bleed, presented to the hospital today with a chief complaint of shortness of breath.? Will Noted to have following conditions: 1.Acute hypoxic respiratory failure:? Multifactorial: pulmonary embolism/pneumonia, ascitis also pushing against the chest.? sob seems improving , ascitis Patient on supplemental oxygen DuoNebs p.r.n. Leukocytosis slightly up possible due to steriods contributin seen by ID and pulm: 9one blood culture with bacillus and coagulase negative staph together likely contaminant) continue doxy day5 /zosyn day3 patient will need pulm follow up 2.Acute pulmonary embolism:??Patient noted to have multiple pulmonary emboli.? Troponins 33 probably related to pulmonary embolism/pneumonia. ?US/US venous duplex : Nonocclusive deep venous thrombus in the right popliteal vein. No extension centrally into the femoral or common femoral vein. ? No evidence of deep venous arms in the left lower extremity however the bilateral peroneal veins were not identified. Echo : Conclusions: - The left ventricular systolic function is normal.? The ? calculated ejection fraction is 67% by biplane method. ? - No obvious valvular pathology seen on this study.? ? Initially patient received heparin drip, discussed with Hematology will switch t o subQ Lovenox. Monitor H&H. Severe lactic acidosis:? Probably secondary to liver disease, trending down patient is clinically improving so will stop trending lactic acid. stop fluids History of alcoholic liver cirrhosis/ascites: Patient has hypoalbuminemia possible related to poor oral intake as well as liver disease. Coagulopathy secondary to liver disease not due to sepsis( inr slightly better than yesterday). LFTs actually trending down than before Patient said she quit alcohol 4 months ago Encouraged for p.o. intake. s/pparacentesis:less likely infectious,cultures pending , cytology added. Adjust to IV Lasix and continue spironolactone, monitor I&O daily weights. Monitor liver function, renal function and electrolyte closely, PT INR. History of esophageal varices/erosive esophagitis:? Continue on PPI.? moniter h/h stable around 9 range anemia normocytic : d/w Gi -moniter cbc daily since h/h stable around 9. Discussed with Dr. Milind dia , Hematology will switch to subQ Lovenox. DVT prophylaxis: Patient on heparin drip inpatient need:Acute hypoxic respiratory failure:? Multifactorial-pneumonia,pulm embolism, esophageal varices . Quality Stroke Does the patient have a stroke diagnosis?: No VTE Prior VTE?: No VTE Risk Level:: Medical - moderate - high VTE Device Contraindication: Treatment Not Indicated VTE Drug Contraindication: N/A - Med Ordered
[2022-04-18] MEDS: 0.9 % Sodium Chloride Flush 3 ML SYRINGE IVFLUSH ×3 (08:22→23:52)
[2022-04-18] MEDS: Midodrine HCl 2.5 MG TABLET PO (08:23)
[2022-04-18] MEDS: Magnesium Oxide 400 MG TABLET 800 MG PO ×2 (08:23→17:31)
[2022-04-18] MEDS: Furosemide 20 MG/2 ML VIAL IVPUSH ×2 (08:23→17:31)
--- NOTE | 2022-04-18 12:34 | MHC.CM.PN ---
FEMALE 66 DX PE ASITES CIRROHSIS NO DC TODAY. PATIENT CONTINUES TO REQUIRE OXYGEN >5L. SHE IS REQUIRING 7-8 L TODAY. DP HOME VS STR. PATIENT IS NOT ELIGIBLE FOR HOME CARE SERVICES BECAUSE SHE IS NOT ESTABLISHED WITH A PCP. [facility] WILL PROVIDE TRANSPORTATION HOME.
[2022-04-18 14:37] LABS: Hematocrit 31.8 % (37.0-47.0); Hemoglobin 10.2 g/dl (12.0-16.0); Mean Corpuscular HGB Conc 32.1 g/dl (31.0-35.0); Mean Corpuscular Hemoglobin 31.6 pg (27.0-33.0); Mean Corpuscular Volume 98.5 fL (80.0-98.0); Mean Platelet Volume 10.4 fL (9.4-12.3); NRBC Pct Auto 0.2 /100WBC (0.0-0.2); Red Blood Count 3.23 X10*6/uL (4.20-5.50); Red Cell Distribution Width 16.2 % (11.0-16.0); White Blood Count 18.4 X10*3/uL (4.8-10.8)
[2022-04-18 14:39] LABS: Platelet Count 93 X10*3/uL (160-400)
[2022-04-18 14:43] LABS: INTERNATIONAL NORM RATIO 1.6 (0.9-1.1); Prothrombin Time 18.4 SEC (9.9-13.0)
[2022-04-18] MEDS: Enoxaparin Sodium 80 MG/0.8 ML SYRINGE 70 MG SUBCUT (15:16)
[2022-04-19] VITALS (7 sets, daily range): BP systolic 130–134; BP diastolic 60–72; PULSE 76–87; RESP 18–22; TEMP 36.3–37.2; O2SAT 91–99; BMI 28.1
[2022-04-19] MEDS: Doxycycline Hyclate 100 MG in 0.9 % Sodium Chloride 250 ML 166.67 MG IV (01:56)
[2022-04-19] MEDS: Melatonin 3 MG TABLET 6 MG PO (01:58)
[2022-04-19] MEDS: Enoxaparin Sodium 80 MG/0.8 ML SYRINGE 70 MG SUBCUT ×2 (02:03→14:26)
[2022-04-19] MEDS: methylPREDNISolone Sod Succ 40 MG/ML VIAL IVPUSH (06:16)
[2022-04-19] MEDS: Piperacillin Sodium/Tazobactam 3.375 GM in 0.9 % Sodium Chloride 50 ML IV ×4 (06:16→23:03)
[2022-04-19 07:13] LABS: Hematocrit 31.3 % (37.0-47.0); Mean Corpuscular HGB Conc 31.9 g/dl (31.0-35.0); Mean Corpuscular Hemoglobin 31.6 pg (27.0-33.0); Mean Corpuscular Volume 99.1 fL (80.0-98.0); Mean Platelet Volume 10.6 fL (9.4-12.3); NRBC Pct Auto 0.2 /100WBC (0.0-0.2); Red Blood Count 3.16 X10*6/uL (4.20-5.50); Red Cell Distribution Width 16.4 % (11.0-16.0); White Blood Count 17.9 X10*3/uL (4.8-10.8)
[2022-04-19 07:17] LABS: Platelet Count 93 X10*3/uL (160-400)
[2022-04-19 07:26] LABS: Anion Gap 12 (12-20); Blood Urea Nitrogen 28 mg/dL (9-16); Calcium 8.6 mg/dL (8.4-10.2); Carbon Dioxide 30 mmol/L (22-29); Chloride 105 mmol/L (96-108); Creatinine Clr Calc Pharmacy 57.2; Estimated Glomerular Filt Rate > 60; Glucose Random 106 mg/dL (60-115); Potassium 3.4 mmol/L (3.3-5.1); Sodium 144 mmol/L (135-145)
[2022-04-19] MEDS: Albuterol/Iprat 2.5/0.5MG 3 ML AMPUL.NEB INHALE (07:38)
--- NOTE | 2022-04-19 08:30 | HO.PM.IMPN ---
Subjective Subjective Date of Service: 04/19/22 Interval History: hypoxia,anemia.liver disease with ascites. Esophageal varices Review of Systems Shortness of breath slightly better than before, still feels generalized weak, Has cough, no fever or abdominal pain or nausea or vomiting Ascites slightly better Physical Exam Vital Signs: Vital Signs: Last Vital Signs Temp 98.4 F 04/19/22 08:00 Pulse 82 04/19/22 08:00 Resp 19 04/19/22 08:00 BP 131/60 04/19/22 08:00 Pulse Ox 98 04/19/22 08:00 BMI result Body Mass Index 28.1 Appearance: Alert.? Oriented X3.? cvs: rrr, [id number] , no murmur res: air entry slightly better, few rhonchii. abd: has ascitis improving? ,nt, bs present. ext pulses present , no cyanosis. neuro: axo3 , nonfocal. Objective Data Active Medications Acetaminophen (Acetaminophen 325 Mg Tablet) 650 mg PO Q6H PRN PRN Reason: Pain, Mild (Pain Scale 1-3) Albuterol/Ipratropium (Albuterol/Iprat 2.5/0.5mg 3 Ml Ampul.Neb) 3 ml INHALE RQ4H WHILE AWAKE [facility] Last Admin: 04/19/22 07:38 Dose: 3 ml Documented by: BRADLEY Enoxaparin Sodium (Enoxaparin Sodium 80 Mg/0.8 Ml Syringe) 70 mg SUBCUT Q12H [facility] Last Admin: 04/19/22 02:03 Dose: 70 mg Documented by: MARKO Furosemide (Furosemide 20 Mg/2 Ml Vial) 20 mg IVPUSH BID@0800,1800 [facility]; Protocol Doxycycline Hyclate 100 mg/ (Sodium Chloride) 250 mls @ 166.67 mls/hr IV Q12H [facility] Last Infusion: 04/19/22 04:25 Dose: 0 mls/hr Documented by: MONTY Piperacillin Sod/Tazobactam (Sod 3.375 gm/ Sodium Chloride) 50 mls @ 100 mls/hr IV Q6H [facility] Last Infusion: 04/19/22 07:45 Dose: 100 mls/hr Documented by: MEDINA Magnesium Oxide (Magnesium Oxide 400 Mg Tablet) 800 mg PO BIDPC [facility] Last Admin: 04/18/22 17:31 Dose: 800 mg Documented by: MIGUELINA Melatonin (Melatonin 3 Mg Tablet) 6 mg PO BEDTIME PRN PRN Reason: Insomnia Last Admin: 04/19/22 01:58 Dose: 6 mg Documented by: MARKO Methylprednisolone Sodium Succinate (Methylprednisolone Sod Succ 40 Mg/Ml Vial) 40 mg IVPUSH Q24H [facility] Last Admin: 04/19/22 06:16 Dose: 40 mg Documented by: MARKO Midodrine (Midodrine Hcl 2.5 Mg Tablet) 2.5 mg PO DAILY [facility] Omeprazole (Omeprazole 40 Mg Capsule.Dr) 40 mg PO BID@0630,1630 [facility] Last Admin: 04/19/22 06:22 Dose: Not Given Documented by: MARKO Non-Admin Reason: Patient Refused Pharmacy Consult (Consult Rx Perform Med Rec) 1 each MISCELLANE ONCE PRN PRN Reason: Consult order Pharmacy Consult (Consult Rx Vancomycin Dosing) 1 each MISCELLANE DAILY PRN PRN Reason: Consult order Senna (Sennosides 8.6 Mg Tablet) 17.2 mg PO BEDTIME PRN PRN Reason: Constipation Sodium Chloride (0.9 % Sodium Chloride Flush 3 Ml Syringe) 3 ml IVFLUSH QSHIFT [facility] Last Admin: 04/18/22 23:52 Dose: 3 ml Documented by: MONTY Labs CBC & Chem 7: 04/19/22 06:37 04/19/22 06:37 Labs: Laboratory Results - last 24 hr 04/18/22 04/18/22 04/18/22 08:42 14:25 14:25 MCV 98.5 H MCH 31.6 MCHC 32.1 RDW 16.2 H Plt Count 93 L MPV 10.4 Absolute Nucleated RBC 0.030 H Nucleated RBC % (auto) 0.2 PT 18.4 H INR 1.6 H APTT 31.0 aPTT Heparin Protocol 43.0 L D Anion Gap Estim Creat Clear Calc Estimated GFR Random Glucose Calcium 04/19/22 04/19/22 06:37 06:37 MCV 99.1 H MCH 31.6 MCHC 31.9 RDW 16.4 H Plt Count 93 L MPV 10.6 Absolute Nucleated RBC 0.030 H Nucleated RBC % (auto) 0.2 PT INR APTT aPTT Heparin Protocol Anion Gap 12 Estim Creat Clear Calc 57.2 Estimated GFR > 60 Random Glucose 106 Calcium 8.6 Microbiology Microbiology Results: Microbiology 04/13/22 Unknown Gram Stain - Final Peritoneal Fluid Anaerobic Culture - Preliminary No growth to date. Body Fluid Culture - Final No growth after 2 days Assessment and Plan (1) Pneumonitis: Status: Acute (2) Acute respiratory failure: Status: Acute (3) Cirrhosis: Status: Acute (4) Pulmonary emboli: Status: Acute (5) Hypoxia: Status: Acute Plan 66-year-old female with a past medical history of alcoholic liver cirrhosis, erosive esophagitis, esophageal varices, history of GI bleed, presented to the hospital today with a chief complaint of shortness of breath.? Will Noted to have following conditions: 1.Acute hypoxic respiratory failure:? Multifactorial: pulmonary embolism/pneumonia, ascitis also pushing against the chest.? sob seems improving , ascitis Patient on supplemental oxygen DuoNebs p.r.n. Leukocytosis slightly up possible due to steriods contributin seen by ID and pulm: 9one blood culture with bacillus and coagulase negative staph together likely contaminant) continue doxy day6 /zosyn d4 patient will need pulm follow up 2.Acute pulmonary embolism:??Patient noted to have multiple pulmonary emboli.? Troponins 33 probably related to pulmonary embolism/pneumonia. ?US/US venous duplex : Nonocclusive deep venous thrombus in the right popliteal vein. No extension centrally into the femoral or common femoral vein. ? No evidence of deep venous arms in the left lower extremity however the bilateral peroneal veins were not identified. Echo : Conclusions: - The left ventricular systolic function is normal.? The ? calculated ejection fraction is 67% by biplane method. ? - No obvious valvular pathology seen on this study.? ? Initially patient received heparin drip, discussed with Hematology will switch to subQ Lovenox. Monitor H&H. Severe lactic acidosis:? Probably secondary to liver disease, trending down patient is clinically improving so will stop trending lactic acid. stop fluids History of alcoholic liver cirrhosis/ascites: Patient has hypoalbuminemia possible related to poor oral intake as well as liver disease. Coagulopathy secondary to liver disease not due to sepsis( inr slightly better than yesterday). LFTs actually trending down than before Patient said she quit alcohol 4 months ago Encouraged for p.o. intake. s/pparacentesis:less likely infectious,cultures pending , cytology added. Adjust to IV Lasix adjusted daily and continue spironolactone, monitor I&O daily weights. Monitor liver function, renal function and electrolyte closely, PT INR. History of esophageal varices/erosive esophagitis:? Continue on PPI.? moniter h/h stable around 9 range anemia normocytic : d/w Gi -moniter cbc daily since h/h stable around 9. Discussed with Dr. Milind ROBLES, Hematology will switch to subQ Lovenox. DVT prophylaxis: Patient on heparin drip inpatient need:Acute hypoxic respiratory failure:? Multifactorial-pneumonia,pulm embolism, esophageal varices . Quality Stroke Does the patient have a stroke diagnosis?: No VTE Prior VTE?: No VTE Risk Level:: Medical - moderate - high VTE Device Contraindication: Treatment Not Indicated VTE Drug Contraindication: N/A - Med Ordered
[2022-04-19] MEDS: Midodrine HCl 2.5 MG TABLET PO (09:36)
[2022-04-19] MEDS: Magnesium Oxide 400 MG TABLET 800 MG PO ×2 (09:37→16:43)
[2022-04-19] MEDS: Furosemide 20 MG/2 ML VIAL IVPUSH (09:37)
[2022-04-19] MEDS: 0.9 % Sodium Chloride Flush 3 ML SYRINGE IVFLUSH ×3 (09:38→23:04)
[2022-04-19] MEDS: Potassium Chloride Packet 20 MEQ PACKET PO (11:25)
[2022-04-19 14:27] LABS: INTERNATIONAL NORM RATIO 1.7 (0.9-1.1)
[2022-04-19] MEDS: Doxycycline Hyclate 100 MG in 0.9 % Sodium Chloride 250 ML 166 MG IV (14:27)
[2022-04-19] MEDS: Omeprazole 40 MG CAPSULE.DR PO (16:44)
[2022-04-20] VITALS (9 sets, daily range): BP systolic 111–147; BP diastolic 61–68; PULSE 67–89; RESP 16–20; TEMP 36.2–37.1; O2SAT 92–97; BMI 26.9
[2022-04-20] MEDS: Doxycycline Hyclate 100 MG in 0.9 % Sodium Chloride 250 ML 166.67 MG IV ×2 (02:11→15:27)
[2022-04-20] MEDS: Enoxaparin Sodium 80 MG/0.8 ML SYRINGE 70 MG SUBCUT ×2 (02:12→15:28)
[2022-04-20] MEDS: Omeprazole 40 MG CAPSULE.DR PO ×2 (05:17→15:28)
[2022-04-20] MEDS: Piperacillin Sodium/Tazobactam 3.375 GM in 0.9 % Sodium Chloride 50 ML IV ×3 (05:17→17:32)
[2022-04-20 06:40] LABS: Anion Gap 13 (12-20); Blood Urea Nitrogen 34 mg/dL (9-16); Calcium 8.4 mg/dL (8.4-10.2); Carbon Dioxide 29 mmol/L (22-29); Chloride 105 mmol/L (96-108); Creatinine Clr Calc Pharmacy 54.8; Estimated Glomerular Filt Rate 60; Glucose Random 104 mg/dL (60-115); Potassium 3.7 mmol/L (3.3-5.1); Sodium 143 mmol/L (135-145)
[2022-04-20 06:42] LABS: Hematocrit 32.5 % (37.0-47.0); Hemoglobin 10.7 g/dl (12.0-16.0)
--- NOTE | 2022-04-20 08:33 | HO.PM.IMPN ---
Subjective Subjective Date of Service: 04/20/22 Interval History: Acute hypoxemic respiratory failure Review of Systems Shortness of breath is slowly improving, denies any chest pain or abdominal pain or nausea or vomiting No fever or chills. Slowly taper oxygen Physical Exam Vital Signs: Vital Signs: Last Vital Signs Temp 97.1 F 04/20/22 07:38 Pulse 80 04/20/22 07:38 Resp 17 04/20/22 07:38 BP 119/67 04/20/22 07:38 Pulse Ox 97 04/20/22 07:38 BMI result Body Mass Index 26.9 ?Appearance: Alert.? Oriented X3.? cvs: rrr, [id number] , no murmur res: air entry slightly better, few rhonchii. abd: has ascitis improving? ,nt, bs present. ext pulses present , no cyanosis. neuro: axo3 , nonfocal. Objective Data Active Medications Acetaminophen (Acetaminophen 325 Mg Tablet) 650 mg PO Q6H PRN PRN Reason: Pain, Mild (Pain Scale 1-3) Albuterol/Ipratropium (Albuterol/Iprat 2.5/0.5mg 3 Ml Ampul.Neb) 3 ml INHALE RQ4H WHILE AWAKE [facility] Last Admin: 04/20/22 07:31 Dose: Not Given Documented by: BRADLEY Non-Admin Reason: Patient Refused Enoxaparin Sodium (Enoxaparin Sodium 80 Mg/0.8 Ml Syringe) 70 mg SUBCUT Q12H [facility] Last Admin: 04/20/22 02:12 Dose: 70 mg Documented by: YUNIER Furosemide (Furosemide 40 Mg Tablet) 40 mg PO DAILY [facility]; Protocol Doxycycline Hyclate 100 mg/ (Sodium Chloride) 250 mls @ 166.67 mls/hr IV Q12H [facility] Last Infusion: 04/20/22 04:05 Dose: 0 mls/hr Documented by: YUNIER Piperacillin Sod/Tazobactam (Sod 3.375 gm/ Sodium Chloride) 50 mls @ 100 mls/hr IV Q6H [facility] [place] Last Infusion: 04/20/22 06:03 Dose: 0 mls/hr Documented by: YUNIER Magnesium Oxide (Magnesium Oxide 400 Mg Tablet) 800 mg PO BIDPC [facility] Last Admin: 04/19/22 16:43 Dose: 800 mg Documented by: VIVIANE Melatonin (Melatonin 3 Mg Tablet) 6 mg PO BEDTIME PRN PRN Reason: Insomnia Last Admin: 04/19/22 01:58 Dose: 6 mg Documented by: MARKO Omeprazole (Omeprazole 40 Mg Capsule.) 40 mg PO BID@0630,1630 [facility] Last Admin: 04/20/22 05:17 Dose: 40 mg Documented by: YUNIER Pharmacy Consult (Consult Rx Perform Med Rec) 1 each MISCELLANE ONCE PRN PRN Reason: Consult order Prednisone (Prednisone 20 Mg Tablet) 40 mg PO DAILY [facility] Senna (Sennosides 8.6 Mg Tablet) 17.2 mg PO BEDTIME PRN PRN Reason: Constipation Sodium Chloride (0.9 % Sodium Chloride Flush 3 Ml Syringe) 3 ml IVFLUSH QSHIFT [facility] Last Admin: 04/19/22 23:04 Dose: 3 ml Documented by: YUNIER Labs CBC & Chem 7: 04/20/22 05:59 04/20/22 05:59 Labs: Laboratory Results - last 24 hr 04/19/22 04/20/22 13:55 05:59 PT 19.0 H INR 1.7 H Anion Gap 13 Estim Creat Clear Calc 54.8 Estimated GFR 60 Random Glucose 104 Calcium 8.4 Microbiology Microbiology Results: Microbiology 04/13/22 Unknown Gram Stain - Final Peritoneal Fluid Anaerobic Culture - Final NO GROWTH AFTER 5 DAYS Body Fluid Culture - Final No growth after 2 days Assessment and Plan (1) Acute respiratory failure: Status: Acute (2) Pulmonary emboli: Status: Acute (3) Hypoxia: Status: Acute Plan 66-year-old female with a past medical history of alcoholic liver cirrhosis, erosive esophagitis, esophageal varices, history of GI bleed, presented to the hospital today with a chief complaint of shortness of breath.? Will Noted to have following conditions: 1.Acute hypoxic respiratory failure:? Multifactorial: pulmonary embolism/pneumonia, ascitis also pushing against the chest.? sob seems improving , ascitis Patient on supplemental oxygen DuoNebs p.r.n. Leukocytosis slightly up possible due to steriods contributin seen by ID and pulm: 9one blood culture with bacillus and coagulase negative staph together likely contaminant) continue doxy day6 /zosyn d4 patient will need pulm follow up 2.Acute pulmonary embolism:??Patient noted to have multiple pulmonary emboli.? Troponins 33 probably related to pulmonary embolism/pneumonia. ?US/US venous duplex : Nonocclusive deep venous thrombus in the right popliteal vein. No extension centrally into the femoral or common femoral vein. ? No evidence of deep venous arms in the left lower extremity however the bilateral peroneal veins were not identified. Echo : Conclusions: - The left ventricular systolic function is normal.? The ? calculated ejection fraction is 67% by biplane method. ? - No obvious valvular pathology seen on this study.? ? Initially patient received heparin drip, discussed with Hematology will switch to subQ Lovenox. Monitor H&H. Severe lactic acidosis:? Probably secondary to liver disease, trending down patient is clinically improving so will stop trending lactic acid. stop fluids History of alcoholic liver cirrhosis/ascites: Patient has hypoalbuminemia possible related to poor oral intake as well as liver disease. Coagulopathy secondary to liver disease not due to sepsis( inr slightly better than yesterday). LFTs actually trending down than before Patient said she quit alcohol 4 months ago Encouraged for p.o. intake. s/pparacentesis:less likely infectious,cultures pending , cytology added. Adjust to IV Lasix adjusted daily and continue spironolactone, monitor I&O daily weights. Monitor liver function, renal function and electrolyte closely, PT INR. History of esophageal varices/erosive esophagitis:? Continue on PPI.? moniter h/h stable around 9 range anemia normocytic : d/w Gi -moniter cbc daily since h/h stable around 10, platelets stable [id number] . Discussed with Dr. Milind dia , Hematology will switch to subQ Lovenox. DVT prophylaxis: Patient on heparin drip inpatient need:Acute hypoxic respiratory failure:taper oxygen,? Multifactorial-pneumonia,pulm embolism, esophageal varices Quality Stroke Does the patient have a stroke diagnosis?: No VTE Prior VTE?: No VTE Risk Level:: Medical - moderate - high VTE Device Contraindication: Treatment Not Indicated VTE Drug Contraindication: N/A - Med Ordered
[2022-04-20 08:44] LABS: Platelet Count 93 X10*3/uL (160-400)
[2022-04-20] MEDS: Magnesium Oxide 400 MG TABLET 800 MG PO ×2 (09:11→15:28)
[2022-04-20] MEDS: predniSONE 20 MG TABLET 40 MG PO (09:12)
[2022-04-20] MEDS: 0.9 % Sodium Chloride Flush 3 ML SYRINGE IVFLUSH ×2 (09:12→15:28)
[2022-04-20] MEDS: Furosemide 40 MG TABLET PO (09:12)
--- NOTE | 2022-04-20 09:16 | MHC.CM.PN ---
Female 66 DX PE PT eval recommends STR. MD note states Patient requires a pulmonary program. Patient does not have a PCP. She would not qualify for Home care services; beacause she does not have a PCP to sign orders. A referral has been sent to the only 2 facilities that provide pulmonary services. [facility] and [facility] are following. DP STR via [facility].
[2022-04-20] MEDS: Albuterol/Iprat 2.5/0.5MG 3 ML AMPUL.NEB INHALE (11:03)
[2022-04-20 13:48] LABS: COVID-19 Test Invalid (Negative)
[2022-04-20 14:41] LABS: COVID-19 Test Negative (Negative)
[2022-04-21] MEDS: Piperacillin Sodium/Tazobactam 3.375 GM in 0.9 % Sodium Chloride 50 ML IV ×3 (00:18→13:01)
[2022-04-21] MEDS: Melatonin 3 MG TABLET 6 MG PO (00:19)
[2022-04-21] MEDS: 0.9 % Sodium Chloride Flush 3 ML SYRINGE IVFLUSH ×2 (00:23→09:01)
[2022-04-21] MEDS: Enoxaparin Sodium 80 MG/0.8 ML SYRINGE 70 MG SUBCUT ×2 (02:30→16:13)
[2022-04-21] MEDS: Doxycycline Hyclate 100 MG in 0.9 % Sodium Chloride 250 ML 166.67 MG IV (02:31)
[2022-04-21 03:24] VITALS: BP 120/66; PULSE 74; RESP 16; TEMP 36.4; O2SAT 99
[2022-04-21 06:00] VITALS: BMI 28.5
[2022-04-21] MEDS: Omeprazole 40 MG CAPSULE.DR PO ×2 (06:25→17:59)
[2022-04-21 07:39] VITALS: BP 126/56; PULSE 72; RESP 18; TEMP 36.2; O2SAT 98
[2022-04-21] MEDS: Furosemide 40 MG TABLET PO (09:00)
[2022-04-21] MEDS: Magnesium Oxide 400 MG TABLET 800 MG PO ×2 (09:01→17:59)
[2022-04-21] MEDS: predniSONE 20 MG TABLET 40 MG PO (09:02)
[2022-04-21 09:18] VITALS: BP 126/56; PULSE 72; O2SAT 98
[2022-04-21 11:29] VITALS: BP 140/71; PULSE 78; RESP 18; TEMP 36.1; O2SAT 99
[2022-04-21] MEDS: Albuterol/Iprat 2.5/0.5MG 3 ML AMPUL.NEB INHALE (12:09)
[2022-04-21 12:12] VITALS: PULSE 71; RESP 20; O2SAT 95
--- NOTE | 2022-04-21 13:32 | MHC.CM.PN ---
Per MD, Patient will be medically cleared for dc to SNF/STR today. Patient will dc to [facility] today at 4PM, via [facility]. Patient and her /[facility] @ [phone] are aware of and in agreement with the dc plan. IMM addressed with Patient at bedside and original has been given to Patient and a copy placed on the chart.
--- NOTE | 2022-04-21 14:06 | P.DS_ITS ---
DS: Providers Provider Date of Service: 04/21/22 Date of admission: 04/12/22 23:19 Primary care physician: Unknown Physician Consults: 04/12/22 23:18 Consult to Gastroenterology Routine Consulting Provider: Giovanny Leger Reason for consultation: Ascites; Eso varices hx; now has PE Consult to Hematology / Oncology Routine Consulting Provider: Walt Mckoy Reason for consultation: PE 04/13/22 04:46 Consult to Infectious Diseases Routine Consulting Provider: Elaine Jackson Reason for consultation: severe leukocytosis; PNA; 04/13/22 11:56 Consult to Pulmonology Routine Consulting Provider: Loy Ramos Reason for consultation: hypoxemic respiratory failure sec to pneumonia/pulm embolism 04/14/22 07:13 Consult to Vascular Surgery Routine Consulting Provider: [facility] Reason for consultation: recent pulm embolism/cirrosis s/p variceal banding,h/h trending low DS: Diagnosis Discharge Diagnosis (1) Acute respiratory failure: Status: Acute (2) Pulmonary emboli: Status: Acute (3) Hypoxia: Status: Acute DS: Summary Hospital Course Hospital Course: 66-year-old female with a past medical history of alcoholic liver cirrhosis, erosive esophagitis, esophageal varices, history of GI bleed, presented to the hospital today with a chief complaint of shortness of breath.? Patient presented to the Day surgery for possible EGD; status post EGD patient became very drowsy and hypoxic; patient was subsequently sent to the ER for further evaluation.? At the time of my interview patient is alert and awake, answering my questions appropriately, on supplemental oxygen; able to speak full sentences.? Patient reports that over the past few days she has been having shortness of breath which has been gradually worsening; also reports dry cough.? Denies any fevers.? Reports her abdomen is gradually distending.? Mentions she has been taking diuretics.? Denies any blood in the vomitus or stool in the past few weeks.? Had remote history of GI bleed per patient.? Denies any difficulty swallowing.? Denies any chest pain or palpitations.? Review of all other systems is negative except mentioned above ER course: Per ER team patient noted to have coarse breath sounds; acutely hypoxic; placed on non-rebreather initially subsequently transitioned to Oxymizer at 10 L; patient was able to finish full sentences.? ABG showed compensated; CT chest was done which showed pulmonary emboli as well as findings concerning for pneumonia.? Patient also noted to have ascites.? Patient was started on heparin drip.? ER team discussed with Dr. Leger from Gastroenterology who agreed for anticoagulation. hopsital course: Patient was admitted for acute hypoxemic respiratory failure which is multifactorial(pulmonary embolism,Nonocclusive deep venous thrombus in the right popliteal vein, pneumonia, COPD exacerbation): Patient was started on IV heparin, antibiotics, nebs and steroids and oxygen for supportive care: With above management patient is improving, seen by Pulmonary: Recommended to switch to p.o. antibiotics, steroids upon discharge. Oxygen demand is improving, taper down further in rehab, consider home oxygen evaluation in rehab before discharge. blood cultures-(one blood culture with bacillus and coagulase negative staph together likely contaminant). In addition staff discussed with Pulmonary and Hematology: Adjusted to subQ Lovenox for now considering patient has anemia and recent esophageal varcies is bending during this admission. Currently patient is on p.o. PPI . Liver disease with ascites: Status post paracentesis, cultures and cytology negative. Continue Lasix and spironolactone. Due to above multifactorial issues: Monitor CBC, BMP closely in a week in rehab. Above management discussed the patient in detail length-she understand and in agreement with the above plan. Time Spent with Patient Time attestation: Total time spent providing and/or coordinating discharge services: Discharge coordination time: Greater than 30 minutes Quality: Safe Use of Opioids Does Pt have an Active Cancer Diagnosis on the Problem List?: No Quality: Stroke Does the patient have a stroke diagnosis?: No Physical Exam Vital Signs: Vital Signs: Last Vital Signs Temp 97.0 F 04/21/22 11:29 Pulse 71 04/21/22 12:12 Resp 20 04/21/22 12:12 BP 140/71 H 04/21/22 11:29 Pulse Ox 99 04/21/22 11:29 BMI result Body Mass Index 28.5 Appearance: Alert.? Oriented X3.? cvs: rrr, [id number] , no murmur res: air entry fair , no rales or wheezin abd: has ascitis improving? ,nt, bs present. ext pulses present , no cyanosis. neuro: axo3 , nonfocal. DS: Data Data Completed and Pending Completed studies during hospitalization [Text1]: Pending at discharge 04/14/22 09:08 Cytology [PTH] Urgent Procedures Drainage of Peritoneal Cavity, Percutaneous Approach (02/23/22) Occlusion of Esophageal Vein with Extraluminal Device, Via Natural or Artificial Opening Endoscopic (02/23/22) Labs on day of discharge: Laboratory Results - last 24 hr 04/20/22 14:00 COVID-19 (LISA) Negative COVID-19 Clin Com See Note Additional Comments Additional comments: 04/18/22 04/18/22 04/18/22 ? 08:42 14:25 14:25 MCV ? ?98.5 H ? MCH ? ?31.6 ? MCHC ? ?32.1 ? RDW ? ?16.2 H ? Plt Count ? ?93 L ? MPV ? ?10.4 ? Absolute Nucleated RBC ? ?0.030 H ? Nucleated RBC % (auto) ? ?0.2 ? PT ? ? ?18.4 H INR ? ? ?1.6 H APTT ? ? ?31.0 aPTT Heparin Protocol ?43.0 L D ? ? Anion Gap ? ? ? Estim Creat Clear Calc ? ? ? Estimated GFR ? ? ? Random Glucose ? ? ? Calcium ? 04/19/22 04/19/22 ? 06:37 06:37 MCV ?99.1 H ? MCH ?31.6 ? MCHC ?31.9 ? RDW ?16.4 H ? Plt Count ?93 L ? MPV ?10.6 ? Absolute Nucleated RBC ?0.030 H ? Nucleated RBC % (auto)B ?0.2 ? PT ? ? INR ? ? APTT ? ? aPTT Heparin Protocol ? ? Anion Gap ? ?12 Estim Creat Clear Calc ? ?57.2 Estimated GFR ? ?> 60 Random Glucose ? ?106 Calcium ? ?8.6 CXr: XR/XR chest 1V IMPRESSION: Stable bilateral patchy opacities suggestive of inflammatory/infectious etiology. US/US venous duplex LE BI IMPRESSION: ? Nonocclusive deep venous thrombus in the right popliteal vein. No extension centrally into the femoral or common femoral vein. ? No evidence of deep venous arms in the left lower extremity however the bilateral peroneal veins were not identified. ? Mild subcutaneous edema in the bilateral calves. CT/CT angio chest PE protocol IMPRESSION: Small number of acute pulmonary emboli in the right upper lobe, left upper lobe and left lower lobe. No evidence of right heart strain. ? Multifocal pulmonary infiltrates as described in the CT report one hour ago. ? This critical result was discussed with ANTONIO Baldwin at 6:16pm on the day of the exam and it was ascertained that the content and urgency of the report was understood at the time of direct communication. ? ? VTE: positive Discharge Plan Discharge Patient Disposition: er [facility] Discharge Diagnosis: Acute hypoxemic respiratory failure secondary to pneumonia/pneumonia, liver disease and ascites, varices status post banding, anemia Referrals: [facility] [Outside] - 1 Week Colton Vaz [Physician] - 1 Week (follow up outpatiently) Walt Mckoy MD [Physician] - 1 Week (follow up outpatiently) Loy Ramos MD [Physician] - 1 Week (Follow-up out patiently) Physician,Jadiel J [Primary Care Provider] - 1 Week Discharge Medications: New doxycycline hyclate 100 mg capsule 100 mg PO BID Qty: 4 0RF amoxicillin-pot clavulanate 875-125 mg tablet 1 tab PO BID Qty: 4 0RF prednisone 20 mg Tablet 40 mg PO DAILY Qty: 1 0RF omeprazole 40 mg Capsule,Delayed Release(Dr/Ec) 40 mg PO BID@0630,1630 Qty: 60 0RF magnesium oxide 400 mg (241.3 mg magnesium) Tablet 800 mg PO BIDPC Qty: 10 0RF enoxaparin 80 mg/0.8 mL Syringe 70 mg subcut Q12H Qty: 1 0RF Continued furosemide 40 mg tablet 1 tab PO DAILY 0RF spironolactone 100 mg tablet 1 tab PO DAILY 0RF Discontinued omeprazole 20 mg Capsule,Delayed Release(Dr/Ec) 20 mg PO BID@0630,1630 Qty: 60 0RF Discharge Orders: Discharge Order (Routine); Ordered 04/21/22 Ordered By: Lisa Hendricks Diet: advance to usual diet Activity on Discharge: As tolerated Stand Alone Forms: Patient Portal Discharge page Care Plan Goals: Patient was admitted for acute hypoxemic respiratory failure which is multifactorial(pulmonary embolism, pneumonia, COPD exacerbation): Patient was started on IV heparin, antibiotics, nebs and steroids and oxygen for supportive care: With above management patient is improving, seen by Pulmonary: Recommended to switch to p.o. antibiotics, steroids upon discharge. Oxygen demand is improving, taper down further in rehab, consider home oxygen evaluation in rehab before discharge. In addition staff discussed with Pulmonary and Hematology: Adjusted to subQ Lovenox q12h(as above) -considering patient has anemia and recent esophageal varcies is bending during this admission. Currently patient is on p.o. PPI . Continue Lovenox as above, further management out patiently with Pulmonary and Hematology. Liver disease with ascites: Status post paracentesis, cultures and cytology negative. Continue Lasix and spironolactone. Due to above multifactorial issues: Monitor CBC, BMP in a week in rehab. Above management discussed the patient in detail length-she understand and in agreement with the above plan. Health Concerns: Complete the course of antibiotic and steroids. Liver disease with ascites and variceal banding during this [id number] with GI out patiently Pulmonary embolism and anemia: Follow up with Hematology out patiently. Plan of Treatment: As above. Assessment: As above.
[2022-04-21 15:48] VITALS: BP 128/61; PULSE 74; RESP 18; TEMP 36.7; O2SAT 96
== END 2022-04-21 19:12 | disposition skilled nursing facility (03) | DRG 432 ==
LOC: HO.ED 16:33 → HO.EDOVER 23:23 → HO.IMC 04-13 13:54
PROVIDERS: Internal Medicine; Physician Assistant Medical; Radiology Diagnostic Radiology; Admitting Provider Hospitalist; Emergency Provider Emergency Medicine; Visit Provider Internal Medicine
PROC: 0W9G3ZZ Drainage of Peritoneal Cavity, Percutaneous Approach (ICD-10-PCS; principal; 2022-04-13 15:00)
DX: K70.31 Alcoholic cirrhosis of liver with ascites (principal); I26.99 Other pulmonary embolism without acute cor pulmonale; J18.9 Pneumonia, unspecified organism; J96.01 Acute respiratory failure with hypoxia; E87.2 Acidosis; D68.4 Acquired coagulation factor deficiency; Z20.822 Contact with and (suspected) exposure to COVID-19; F17.210 Nicotine dependence, cigarettes, uncomplicated; Z71.6 Tobacco abuse counseling; Z79.52 Long term (current) use of systemic steroids; Z79.899 Other long term (current) drug therapy
CPT/HCPCS: 36415; 49083; 71045; 71250; 71275; 74176; 80048; 80053; 80076; 80202; 82140; 82565; 82803; 82945; 83605; 83615; 83735; 83880; 84145; 84157; 84484; 85014; 85018; 85025; 85027; 85049; 85379; 85610; 85730; 86850; 86900; 86901; 87040; 87070; 87073; 87147; 87205; 87502; 87635; 88112; 89051; 93005; 93306; 93970; 94640; 96365; 96367; 96375; 97162; 97530; 99285; 99291; J1650; J1940; J2250; J2354; J2543; J2920; J3370; P9047; Q9967